=== PATIENT | female | born 1955 | race Caucasian/White ===

== ENCOUNTER → 2016-07-05 | Outpatient (CLI) | payer MEDICARE, MEDICAID ==
[~2016-07-05] MED LIST: /ESCI20TA OR; /ESOM40CA OR; ATEN25TA OR; CALC-136 PO; FLEXERIL OR; GARL3CAP3 PO; Hydrocodone/APAP OR; IRON18TA2 PO; LASI20TA PO; LEVO112T25 PO; LEVO50TA2 OR; MIRA0.753 PO; MIRA1.5T4 PO; Mirapex OR; NUPRO TOP; PERC7.5T3 PO; PROZ20CA11 PO; TYLE167L PO; TYLE650T25 PO; VITA100037 PO; VITATAB11 PO; WELL100T PO; ZINC30TA3 PO; flexeril PO
--- NOTE | 2016-07-11 23:38 | ECWPNPC ---
PATIENT NAME: JUAN BELLE : 1955 GENDER: FEMALE VISIT DATE: 07/05/2016 DISCHARGE DATE: 07/05/16 0935 VISIT LOCKED DATE TIME: PHYSICIAN: RE JACKSON RESOURCE: RE JACKSON REASON FOR APPOINTMENT 1. ARTHRITIS HISTORY OF PRESENT ILLNESS HISTORY OF PRESENT ILLNESS: PAIN THE PATIENT DESCRIBES THE PAIN... HERE FOR F/U AND MANAGEMENT OF CHRONIC GENERALIZED NECK AND LBP.REPORTS NEW ONSET OF RIGHT HIP PAIN X2WKS.DENIES PRECIPITATING EVENT.PAIN RADIATES INTO RIGHT HIP AND THIGH.RATING GENERALIZED PAIN 3/10.USING PERCOCET PRN FOR SEVERE PAIN EPISODES.STATES SHE RAN OUT OF HER MEDICINE ONE WEEK AGO.HAS 30 TABS. PER MOS. FALL RISK SCREENING: SCREENING :NO FALLS IN THE PAST YEAR CURRENT MEDICATIONS TAKING FERROUS SULFATE 325 (65 FE) MG TABLET 1 TABLET ORALLY ONCE A DAY TAKING TYLENOL 650 MG TABLET 1 TAB ORAL NEEDED, NOTES: PAIN CLINIC TAKING VITAMIN B COMPLEX TABLET ORALLY DAILY TAKING FLONASE 50 MCG/ACT SUSPENSION 1 SPRAY IN EACH NOSTRIL NASALLY ONCE DAILY NEEDED TAKING SALINE NASAL SPRAY 0.65 % SOLUTION 2 DROPS IN EACH NOSTRIL NEEDED NASALLY EVERY 2 HRS TAKING CYCLOBENZAPRINE HCL 10 MG TABLET 1 TABLET ORALLY THREE TIMES A DAY ONLY NEEDED FOR FLARE-UP OF MUSCLE SPASM TAKING NEXIUM 40 MG CAPSULE DELAYED RELEASE 1 TAB ORALLY ONCE A DAY TAKING BUPROPION HCL (XL) 300 MG TABLET EXTENDED RELEASE 24 HOUR 1 TABLET IN THE MORNING ORALLY ONCE A DAY TAKING LEVOXYL 112 MCG TABLET 1 TABLET ON AN EMPTY STOMACH IN THE MORNING ORALLY ONCE A DAY TAKING DRISDOL 37264 UNIT CAPSULE 1 CAPSULE WITH MEAL ORALLY ONCE A WEEK TAKING CALCIUM + D 600-400 MG-UNIT TABLET 1 TABLET WITH FOOD ORALLY TWICE A DAY TAKING MIRAPEX ER 1.5 MG TABLET EXTENDED RELEASE 24 HOUR 1 TABLET ORALLY ONCE A DAY TAKING PERCOCET 7.5-325 MG TABLET 1 ORALLY Q8H PRN PAIN MDD2, NOTES: PAIN CLINIC NOT-TAKING BUSPIRONE HCL 5 MG TABLET 1 TABLET ORALLY ONCE A DAY NEEDED MEDICATION LIST REVIEWED AND RECONCILED WITH THE PATIENT PAST MEDICAL HISTORY HYPOTHYROIDISM ESOPHAGEAL REFLUX DISC DISEASE ARTHRITIS 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 PAIN OTHER MALAISE AND FATIGUE OBESITY -GASTRIC BYPASS, JULY 2011 ANXIETY NEURASTHENIA SCIATICA BACK PAIN - LUMBAR - PAIN CLINIC OTHER SPECIFIED IDIOPATHIC PERIPHERAL NEUROPATHY PAIN IN JOINT, LOWER LEG PAIN IN THORACIC SPINE DEPRESSION,DYSTHYMIC DISORDER VITAMIN D DEFICIENCY ALLERGIC RHINITIS SLEEP APNEA, OBSTRUCTIVE - REFUSED CPAP, FOLLOWS WITH NEUROLOGY RESTLESS LEGS SYNDROME - NEUROLOGY ALLERGIES INH: RASH: ALLERGY PENICILLIN: SOB: ALLERGY CODEINE: NAUSEA: SIDE EFFECTS ULTRAM: HEADACHE: SIDE EFFECTS HYDROCODONE-ACETAMINOPHEN: ITCH ALL OVER: ALLERGY LIDOCAINE: RAPID HEARTBEAT: ALLERGY BETADINE: RASH: ALLERGY SOCIAL HISTORY TOBACCO USE ARE YOU A:NONSMOKER LEARNING BARRIERS / SPECIAL NEEDS ORIENTED TO PLAN OF CARE: PATIENT, PAIN MANAGEMENT PATIENT, ORIENTED TO PLAN OF CARE: PATIENT, PAIN MANAGEMENT PATIENT. NEW PATIENT PAIN DIARY TODAY'S VISITNOTES FROM 0-10, WHAT LEVEL IS YOUR PAIN TODAY?0 PAIN CLINIC PFS, CLERGY, PUBLIC HEALTH REFERRALS PFS REFERRAL NEEDED?NO CLERGY REFERRAL NEEDED?NO PUBLIC HEALTH REFERRAL NEEDED?NO WAS THE PROVIDER NOTIFIED OF ANY PERTINENT INFO?NO PFS REFERRAL NEEDED?NO CLERGY REFERRAL NEEDED?NO PUBLIC HEALTH REFERRAL NEEDED?NO WAS THE PROVIDER NOTIFIED OF ANY PERTINENT INFO?NO REVIEW OF SYSTEMS CONSTITUTIONAL: ANY CHANGE IN YOUR MEDICAL CONDITION? NO . CHILLS NO . FEVER NO . INFECTION: DO YOU HAVE NEW INFECTIONS? YES, COLD LAST WEEK . DO YOU HAVE HISTORY OF MRSA? NO . MUSCULOSKELETAL: ANY NEW PATTERNS OF PAIN OR NUMBNESS? YES,PAIN RIGHT HIP. NOT SCIATIC . GASTROENTEROLOGY: ANY NEW CHANGE IN BOWEL CONTROL? NO . GENITOURINARY: ANY NEW CHANGE IN BLADDER CONTROL? NO . IS THERE A CHANCE YOU COULD BE ? NO . HEMATOLOGY/LYMPH: DO YOU TAKE ANY BLOOD THINNERS? (FOR EXAMPLE- COUMADIN, PLAVIX, AGGRENOX, PLATEL, PRADAXA, OR XARELTO) NO . WHEN WAS YOUR LAST DOSE? DATE: TIME: . NEUROLOGY: HAVE YOU FALLEN IN THE PAST 6 MONTHS? NO . ANY NEW EXTREMITY NUMBNESS OR WEAKNESS? NO . CARDIOLOGY: DO YOU HAVE A PACEMAKER OR DEFIBRILLATOR? NO . RESPIRATORY: HAVE YOU BEEN SICK IN THE PAST WEEK? YES, COLD LAST WEEK WITH CHILLS AT START. RAISED GREENISH MUCUS X 5 DAYS. FEELS BETTER NOW. . FEVER NO . FLU LIKE SYMPTOMS? NO . COUGH NO . INTEGUMENTARY: DO YOU HAVE ANY RASHES OR OPEN SORES? NO . ALLERGIC/IMMUNO: ARE YOU ALLERGIC TO SHELLFISH OR IV DYE? NO . ANY NEW ALLERGIES? NO . PSYCHIATRIC: DO YOU HAVE THOUGHTS OF HURTING YOURSELF OR SOMEONE ELSE? NO . ARE YOU ABUSED, NEGLECTED, OR IN AN UNSAFE ENVIRONMENT? NO . ENDOCRINOLOGY: ARE YOU DIABETIC? NO . OTHER: DO YOU NEED ANY PRESCRIPTIONS? YES, PERCOCET AND FLEXERIL . IF YES, PLEASE LIST: ____ . ANY NEW PROBLEMS WITH YOUR MEDICATIONS? NO . WHEN DID YOU LAST EAT? ____ . WHEN DID YOU LAST DRINK? ____ . WHAT DID YOU LAST DRINK? ____ . NAME OF PERSON DRIVING YOU HOME? ____ . DO YOU HAVE ANY OTHER QUESTIONS OR CONCERNS NO . REVIEWED BY: PROVIDER: RE SKAGGS . VITAL SIGNS WT 195 LBS, HT 63 IN, BMI 34.54 INDEX, BP 121/82 MM HG, HR 77 /MIN, RR 16 /MIN, TEMP 97.5 F, OXYGEN SAT % 97, REVIEWED BY: MLF. EXAMINATION GENERAL EXAMINATION: LUNGS:LUNG SOUNDS ARE CLEAR. HEART:HEART RATE REGULAR. MUSCULOSKELETAL:*, MUSCLE STRENGTH TESTING 5/5 BILATERAL.PALPATION: NEGATIVE FOR PAIN OVER L/S SPINE. NEGATIVE FOR PAIN OVER L/S PARASPINALS, PARICK TESTING POSITIVE OVER RIGHT SIJ.. DIAGNOSTIC:DIAGNOSTIC DATA:MRI L/S SPINE-MULTI LEVEL BULGING DISC AND FACET ARTHROPATHY.MILD SPINAL STENOSIS AT L2/3.. ASSESSMENTS LOW BACK PAIN OF OVER 3 MONTHS DURATION - M54.5 (PRIMARY) OTHER CHRONIC PAIN - G89.29 CHRONIC MYOFASCIAL PAIN - M79.1 CHRONIC PRESCRIPTION OPIATE USE - Z79.899 TREATMENT LOW BACK PAIN OF OVER 3 MONTHS DURATION REFILL PERCOCET TABLET, 7.5-325 MG, 1-2, ORALLY, Q4-6H PRN PAIN MDD4, 1 MONTH, 30, REFILLS 0, NOTES: PAIN CLINIC [facility] MRI SPINE, L.S. WITHOUT [id number] PROCEDURE CODES FA211 ESTABILISHED PATIENT [facility] FACILITY CHARGE G8730 PAIN ASSESS POS TOOL F/U PLAN DOC G8427 DOC MEDS VERIFIED W/PT OR RE FOLLOW UP 4 WEEKS ELECTRONICALLY SIGNED BY GILES DO ON 07/11/2016 AT 10:22 AM EST DISCLAIMER : THIS IS A VISIT SUMMARY EXTRACTED FROM THE [employer] CHART. IT IS NOT A COPY OF THE [employer] PROGRESS NOTE. MTDD
== END ==
LOC: M PAIN 08:40
PROVIDERS: ATTEND Nurse Practitioner Family
DX: M54.5 Low back pain (principal); G89.29 Other chronic pain; M79.1 Myalgia; M19.90 Unspecified osteoarthritis, unspecified site; Z79.891 Long term (current) use of opiate analgesic; Z79.899 Other long term (current) drug therapy; Z88.0 Allergy status to penicillin; Z88.5 Allergy status to narcotic agent; Z88.3 Allergy status to other anti-infective agents; Z88.8 Allergy status to other drugs, medicaments and biological substances

== ENCOUNTER → 2016-07-15 | Outpatient (CLI) | payer MEDICARE, MEDICAID ==
--- NOTE | 2016-07-15 09:03 | REP ---
MRI LUMBAR SPINE WITHOUT CONTRAST: HISTORY: Back pain. COMPARISON: 07/25/2014. Decreased signal intensity on T2-weighted images is present in the lumbar intervertebral discs. The discs are decreased in height. These findings are consistent with disc degeneration. A diffuse disc bulge is present at the L1-2 level. There is minimal compression of the thecal sac. There is hypertrophy of the posterior articulating facets. The L1 nerves exit the neural foramina without compression. A diffuse disc bulge is present at the L2-3 level. There is hypertrophy of the ligamenta flava and posterior articulating facets. These findings produce minimal central canal stenosis. A small right intraforaminal and lateral disc protrusion is present. There is posterolateral displacement of the right L2 nerve in the distal neural foramen. The left L2 nerve exits the neural foramen without compression. A diffuse disc bulge is present at the L3-4 level. There is minimal compression of the thecal sac. There is hypertrophy of the ligamenta flava and posterior articulating facets. There is posterolateral displacement of the left L3 nerve distal to the neural foramen. The right L3 nerve exits the neural foramen without compression. A diffuse disc bulge is present at the L4-5 level. There is minimal compression of the thecal sac. There is hypertrophy of the posterior articulating facets. The L4 nerves exit the neural foramina without compression. A diffuse disc bulge is present at the L5-S1 level. There is minimal compression of the thecal sac. There is hypertrophy of the posterior articulating facets. There is compression of the right L5 nerve in the neural foramen. The left L5 nerve exits the neural foramen without compression. The conus medullaris is normal in appearance terminating at the level of the L1-2 intervertebral disc. Increased signal intensity on T2-weighted images is present in the end plates of the L1-S2 vertebral bodies. This represents degenerative change. IMPRESSION: 1. Diffuse disc bulges at the L1-2 and L3-4 through L5-S1 levels with minimal thecal sac compression. There is compression of the right L5 nerve in the neural foramen. The right L5 nerve compression is a new finding. 2. Minimal central canal stenosis at the L2-3 level secondary to disc bulge, ligamentous and facet hypertrophy. There is no other significant change. Signed by Mauro Brown MD 07/15/2016 09:11 A
== END ==
LOC: M RAD 06:46
PROVIDERS: ATTEND Nurse Practitioner Family
DX: M51.26 Other intervertebral disc displacement, lumbar region (principal)

== ENCOUNTER → 2016-08-12 | Outpatient (REF) | payer MEDICARE, MEDICAID | LOC: M SFHCPLAZ 11:52 | PROVIDERS: ATTEND Nurse Practitioner Family | DX: M25.50 Pain in unspecified joint (principal); E03.9 Hypothyroidism, unspecified; E55.9 Vitamin D deficiency, unspecified; Z53.8 Procedure and treatment not carried out for other reasons ==

== ENCOUNTER → 2016-08-12 | Outpatient (CLI) | payer MEDICARE, MEDICAID ==
--- NOTE | 2016-08-17 00:25 | ECWPNPC ---
PATIENT NAME: JUAN BELLE : 1955 GENDER: FEMALE VISIT DATE: 08/12/2016 DISCHARGE DATE: 08/12/16 1556 VISIT LOCKED DATE TIME: PHYSICIAN: RE JACKSON RESOURCE: RE JACKSON REASON FOR APPOINTMENT 1. ARTHRITIS HISTORY OF PRESENT ILLNESS HISTORY OF PRESENT ILLNESS: PAIN THE PATIENT DESCRIBES THE PAIN... THE PATIENT DESCRIBES THE PAIN... HERE FOR F/U AND MANAGEMENT OF CHRONIC GENERALIZED NECK AND LBP.MRI L/S SPINE DONE 07-15-16 REVIEWED.RATING GENERALIZED PAIN /10.USING PERCOCET PRN FOR SEVERE PAIN EPISODES.MRI SHOWING NEW FINDING OF RIGHT L5 NERVE COMPRESSION.SHE HAS A 6 WEEK HX OF RIGHT LOW BACK AND RIGHT LEG RADICULAR SYMPTOMS.DISCUSSED TREATMENT OPTIONS.SHE WANTS TO HOLD OFF WITH ANY INJECTIONS.DISCUSSED PT.OVERALL SHE REPORTS THAT SHE IS DOING QUITE WELL. FALL RISK SCREENING: SCREENING :NO FALLS IN THE PAST YEAR CURRENT MEDICATIONS TAKING FERROUS SULFATE 325 (65 FE) MG TABLET 1 TABLET ORALLY ONCE A DAY TAKING TYLENOL 650 MG TABLET 1 TAB ORAL NEEDED, NOTES: PAIN CLINIC TAKING VITAMIN B COMPLEX TABLET ORALLY DAILY TAKING FLONASE 50 MCG/ACT SUSPENSION 1 SPRAY IN EACH NOSTRIL NASALLY ONCE DAILY NEEDED TAKING SALINE NASAL SPRAY 0.65 % SOLUTION 2 DROPS IN EACH NOSTRIL NEEDED NASALLY EVERY 2 HRS TAKING CYCLOBENZAPRINE HCL 10 MG TABLET 1 TABLET ORALLY THREE TIMES A DAY ONLY NEEDED FOR FLARE-UP OF MUSCLE SPASM TAKING NEXIUM 40 MG CAPSULE DELAYED RELEASE 1 TAB ORALLY ONCE A DAY TAKING DRISDOL 07733 UNIT CAPSULE 1 CAPSULE WITH MEAL ORALLY ONCE A WEEK TAKING CALCIUM + D 600-400 MG-UNIT TABLET 1 TABLET WITH FOOD ORALLY TWICE A DAY TAKING MIRAPEX ER 1.5 MG TABLET EXTENDED RELEASE 24 HOUR 1 TABLET ORALLY ONCE A DAY TAKING PERCOCET 7.5-325 MG TABLET 1-2 ORALLY Q4-6H PRN PAIN MDD4, NOTES: PAIN CLINIC TAKING LEVOXYL 112 MCG TABLET 1 TABLET ON AN EMPTY STOMACH IN THE MORNING ORALLY ONCE A DAY TAKING BUPROPION HCL (XL) 300 MG TABLET EXTENDED RELEASE 24 HOUR 1 TABLET IN THE MORNING ORALLY ONCE A DAY NOT-TAKING BUSPIRONE HCL 5 MG TABLET 1 TABLET ORALLY ONCE A DAY NEEDED MEDICATION LIST REVIEWED AND RECONCILED WITH THE PATIENT PAST MEDICAL HISTORY HYPOTHYROIDISM ESOPHAGEAL REFLUX DISC DISEASE ARTHRITIS 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 PAIN OTHER MALAISE AND FATIGUE OBESITY -GASTRIC BYPASS, JULY 2011 ANXIETY NEURASTHENIA SCIATICA BACK PAIN - LUMBAR - PAIN CLINIC OTHER SPECIFIED IDIOPATHIC PERIPHERAL NEUROPATHY PAIN IN JOINT, LOWER LEG PAIN IN THORACIC SPINE DEPRESSION,DYSTHYMIC DISORDER VITAMIN D DEFICIENCY ALLERGIC RHINITIS SLEEP APNEA, OBSTRUCTIVE - REFUSED CPAP, FOLLOWS WITH NEUROLOGY RESTLESS LEGS SYNDROME - NEUROLOGY ALLERGIES INH: RASH: ALLERGY PENICILLIN: SOB: ALLERGY CODEINE: NAUSEA: SIDE EFFECTS ULTRAM: HEADACHE: SIDE EFFECTS HYDROCODONE-ACETAMINOPHEN: ITCH ALL OVER: ALLERGY LIDOCAINE: RAPID HEARTBEAT: ALLERGY BETADINE: RASH: ALLERGY SOCIAL HISTORY GENERAL: TOBACCO USE ARE YOU A:NONSMOKER LEARNING BARRIERS / SPECIAL NEEDS ORIENTED TO PLAN OF CARE: PATIENT, PAIN MANAGEMENT PATIENT, ORIENTED TO PLAN OF CARE: PATIENT, PAIN MANAGEMENT PATIENT. NEW PATIENT PAIN DIARY TODAY'S VISITNOTES FROM 0-10, WHAT LEVEL IS YOUR PAIN TODAY?0 PAIN CLINIC PFS, CLERGY, PUBLIC HEALTH REFERRALS PFS REFERRAL NEEDED?NO CLERGY REFERRAL NEEDED?NO PUBLIC HEALTH REFERRAL NEEDED?NO WAS THE PROVIDER NOTIFIED OF ANY PERTINENT INFO?NO PFS REFERRAL NEEDED?NO CLERGY REFERRAL NEEDED?NO PUBLIC HEALTH REFERRAL NEEDED?NO WAS THE PROVIDER NOTIFIED OF ANY PERTINENT INFO?NO REVIEW OF SYSTEMS CONSTITUTIONAL: ANY CHANGE IN YOUR MEDICAL CONDITION? NO . CHILLS NO . FEVER NO . INFECTION: DO YOU HAVE NEW INFECTIONS? NO . DO YOU HAVE HISTORY OF MRSA? NO . MUSCULOSKELETAL: ANY NEW PATTERNS OF PAIN OR NUMBNESS? NO . GASTROENTEROLOGY: ANY NEW CHANGE IN BOWEL CONTROL? NO . GENITOURINARY: ANY NEW CHANGE IN BLADDER CONTROL? NO . IS THERE A CHANCE YOU COULD BE ? NO . HEMATOLOGY/LYMPH: DO YOU TAKE ANY BLOOD THINNERS? (FOR EXAMPLE- COUMADIN, PLAVIX, AGGRENOX, PLATEL, PRADAXA, OR XARELTO) NO . WHEN WAS YOUR LAST DOSE? DATE: TIME: . NEUROLOGY: HAVE YOU FALLEN IN THE PAST 6 MONTHS? NO . ANY NEW EXTREMITY NUMBNESS OR WEAKNESS? NO . CARDIOLOGY: DO YOU HAVE A PACEMAKER OR DEFIBRILLATOR? NO . RESPIRATORY: HAVE YOU BEEN SICK IN THE PAST WEEK? YES PT REPORTS HAVING A COLD THIS PAST WEEK, WITH CONGESTION, LOW GRADE FEVER, COUGHING. NOW IS RESOLVED. . FEVER NO . FLU LIKE SYMPTOMS? NO . COUGH NO . INTEGUMENTARY: DO YOU HAVE ANY RASHES OR OPEN SORES? NO . ALLERGIC/IMMUNO: ARE YOU ALLERGIC TO SHELLFISH OR IV DYE? NO . ANY NEW ALLERGIES? NO . PSYCHIATRIC: DO YOU HAVE THOUGHTS OF HURTING YOURSELF OR SOMEONE ELSE? NO . ARE YOU ABUSED, NEGLECTED, OR IN AN UNSAFE ENVIRONMENT? NO . ENDOCRINOLOGY: ARE YOU DIABETIC? NO . OTHER: DO YOU NEED ANY PRESCRIPTIONS? NO . IF YES, PLEASE LIST: ____ . ANY NEW PROBLEMS WITH YOUR MEDICATIONS? NO . WHEN DID YOU LAST EAT? ____ . WHEN DID YOU LAST DRINK? ____ . WHAT DID YOU LAST DRINK? ____ . NAME OF PERSON DRIVING YOU HOME? ____ . DO YOU HAVE ANY OTHER QUESTIONS OR CONCERNS NO . REVIEWED BY: PROVIDER: RE SKAGGS . VITAL SIGNS WT 198.0 LBS, HT 63 IN, BMI 35.07 INDEX, BP 134/77 MM HG, HR 96 /MIN, RR 16 /MIN, TEMP 98.2 F, OXYGEN SAT % 96, SAFE IN ENV? (Y/N) YES, NA INITIALS TL 1512, REVIEWED BY: STEPHY. EXAMINATION GENERAL EXAMINATION: LUNGS:LUNG SOUNDS ARE CLEAR. HEART:HEART RATE REGULAR. MUSCULOSKELETAL:*, MUSCLE STRENGTH TESTING 5/5 BILATERAL.PALPATION: NEGATIVE FOR PAIN OVER L/S SPINE. NEGATIVE FOR PAIN OVER L/S PARASPINALS, PARICK TESTING POSITIVE OVER RIGHT SIJ.. DIAGNOSTIC:DIAGNOSTIC DATA:MRI L/S SPINE-MULTI LEVEL BULGING DISC AND FACET ARTHROPATHY.MILD SPINAL STENOSIS AT L2/3.. ASSESSMENTS LOW BACK PAIN OF OVER 3 MONTHS DURATION - M54.5 (PRIMARY) OTHER CHRONIC PAIN - G89.29 CHRONIC MYOFASCIAL PAIN - M79.1 CHRONIC PRESCRIPTION OPIATE USE - Z79.899 TREATMENT LOW BACK PAIN OF OVER 3 MONTHS DURATION REFERRAL TO:PHYSICAL THERAPIST REASON:RIGHT L5 RADICULOPATHY/LOW BACK PAIN PROCEDURE CODES FA211 ESTABILISHED PATIENT [facility] FACILITY CHARGE G8730 PAIN ASSESS POS TOOL F/U PLAN DOC G8427 DOC MEDS VERIFIED W/PT OR RE FOLLOW UP 6 WEEKS ELECTRONICALLY SIGNED BY GILES DO ON 08/16/2016 AT 08:53 AM EST DISCLAIMER : THIS IS A VISIT SUMMARY EXTRACTED FROM THE [employer] CHART. IT IS NOT A COPY OF THE [employer] PROGRESS NOTE. MTDD
== END ==
LOC: M PAIN 15:00
PROVIDERS: ATTEND Nurse Practitioner Family
DX: Z09 Encounter for follow-up examination after completed treatment for conditions other than malignant neoplasm (principal); G89.29 Other chronic pain; M54.5 Low back pain; M79.1 Myalgia; G47.33 Obstructive sleep apnea (adult) (pediatric); G25.81 Restless legs syndrome; J30.9 Allergic rhinitis, unspecified; E78.2 Mixed hyperlipidemia; E03.9 Hypothyroidism, unspecified; K21.9 Gastro-esophageal reflux disease without esophagitis; F32.9 Major depressive disorder, single episode, unspecified; F41.9 Anxiety disorder, unspecified; E55.9 Vitamin D deficiency, unspecified; Z88.0 Allergy status to penicillin; Z88.5 Allergy status to narcotic agent; Z88.8 Allergy status to other drugs, medicaments and biological substances; Z88.4 Allergy status to anesthetic agent; Z88.3 Allergy status to other anti-infective agents; Z79.1 Long term (current) use of non-steroidal anti-inflammatories (NSAID); Z79.82 Long term (current) use of aspirin; Z79.891 Long term (current) use of opiate analgesic; Z79.899 Other long term (current) drug therapy; Z98.84 Bariatric surgery status
CPT/HCPCS: G0463 ×2

== ENCOUNTER → 2016-08-19 | Outpatient (REF) | payer MEDICARE, MEDICAID ==
[2016-08-19 13:57] LABS: FREE T4 1.23 NG/DL (0.76-1.46)
== END ==
LOC: M SFHCPLAZ 11:14
PROVIDERS: ATTEND Nurse Practitioner Family
DX: E03.9 Hypothyroidism, unspecified (principal); E55.9 Vitamin D deficiency, unspecified; M25.50 Pain in unspecified joint

== ENCOUNTER → 2016-09-13 | Outpatient (CLI) | payer MEDICARE, MEDICAID ==
--- NOTE | 2016-09-13 23:49 | ECWPNPC ---
PATIENT NAME: JUAN BELLE : 1955 GENDER: FEMALE VISIT DATE: 09/13/2016 DISCHARGE DATE: 09/13/16 1131 VISIT LOCKED DATE TIME: PHYSICIAN: RE JACKSON RESOURCE: RE JACKSON REASON FOR APPOINTMENT 1. GENERALIZED ARTHRITIS HISTORY OF PRESENT ILLNESS HISTORY OF PRESENT ILLNESS: HERE FOR F/U OF CHRONIC LBP AND RIGHT LEG PAIN.STATES SHE WANTS TO TALK TO ME REGARDING PAIN PILL SITUATION.STATES SHE HAS 2 CHILDREN SHE FEELS ARE ADDICTED TO PAIN PILLS AND KNOW SHE HAS PERCOCET AND THEY HOUND HER FOR MEDICATION.SHE WANTS TO NOT HAVE THIS PRESCRIBED ANYMORE.SHE WAS RECIEVING #30 TABLETS EVERY 2-3 MOS.SHE WANTS TO COME HERE MAYBE ONCE Q6MOS TO KEEP FILE OPEN.STATES SHE WILL GO TO ER IF SHE HAS TO FOR SEVERE PAIN.RATING PAIN VAS 4/10. FALL RISK SCREENING: SCREENING :NO FALLS IN THE PAST YEAR CURRENT MEDICATIONS TAKING ERYTHROMYCIN 2 % GEL APPLY TO NECK AND HAIRLINE TWO TIMES A DAY UNTIL CLEAR THEN NEEDED WITH FLARE EXTERNAL TAKING FERROUS SULFATE 325 (65 FE) MG TABLET 1 TABLET ORALLY ONCE A DAY TAKING TYLENOL 650 MG TABLET 1 TAB ORAL NEEDED, NOTES: PAIN CLINIC TAKING VITAMIN B COMPLEX TABLET ORALLY DAILY TAKING FLONASE 50 MCG/ACT SUSPENSION 1 SPRAY IN EACH NOSTRIL NASALLY ONCE DAILY NEEDED TAKING SALINE NASAL SPRAY 0.65 % SOLUTION 2 DROPS IN EACH NOSTRIL NEEDED NASALLY EVERY 2 HRS TAKING CYCLOBENZAPRINE HCL 10 MG TABLET 1 TABLET ORALLY THREE TIMES A DAY ONLY NEEDED FOR FLARE-UP OF MUSCLE SPASM TAKING NEXIUM 40 MG CAPSULE DELAYED RELEASE 1 TAB ORALLY ONCE A DAY TAKING DRISDOL 15101 UNIT CAPSULE 1 CAPSULE WITH MEAL ORALLY ONCE A WEEK TAKING CALCIUM + D 600-400 MG-UNIT TABLET 1 TABLET WITH FOOD ORALLY TWICE A DAY TAKING MIRAPEX ER 1.5 MG TABLET EXTENDED RELEASE 24 HOUR 1 TABLET ORALLY ONCE A DAY TAKING PERCOCET 7.5-325 MG TABLET 1-2 ORALLY Q4-6H PRN PAIN MDD4, NOTES: PAIN CLINIC TAKING BUPROPION HCL (XL) 300 MG TABLET EXTENDED RELEASE 24 HOUR 1 TABLET IN THE MORNING ORALLY ONCE A DAY TAKING BUPROPION HCL (XL) 150 MG TABLET EXTENDED RELEASE 24 HOUR 1 TABLET IN THE MORNING ORALLY ONCE A DAY WITH THE 300MG DOSE TAKING BUSPIRONE HCL 7.5 MG TABLET 1 TABLET ORALLY THREE TIMES A DAY NEEDED TAKING LEVOXYL 112 MCG TABLET 1 TABLET ON AN EMPTY STOMACH IN THE MORNING ORALLY ONCE A DAY MEDICATION LIST REVIEWED AND RECONCILED WITH THE PATIENT PAST MEDICAL HISTORY HYPOTHYROIDISM ESOPHAGEAL REFLUX DISC DISEASE ARTHRITIS 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 PAIN OTHER MALAISE AND FATIGUE OBESITY -GASTRIC BYPASS, JULY 2011 ANXIETY NEURASTHENIA SCIATICA BACK PAIN - LUMBAR - PAIN CLINIC OTHER SPECIFIED IDIOPATHIC PERIPHERAL NEUROPATHY PAIN IN JOINT, LOWER LEG PAIN IN THORACIC SPINE DEPRESSION,DYSTHYMIC DISORDER VITAMIN D DEFICIENCY ALLERGIC RHINITIS SLEEP APNEA, OBSTRUCTIVE - REFUSED CPAP, FOLLOWS WITH NEUROLOGY RESTLESS LEGS SYNDROME - NEUROLOGY ALLERGIES INH: RASH: ALLERGY PENICILLIN: SOB: ALLERGY CODEINE: NAUSEA: SIDE EFFECTS ULTRAM: HEADACHE: SIDE EFFECTS HYDROCODONE-ACETAMINOPHEN: ITCH ALL OVER: ALLERGY LIDOCAINE: RAPID HEARTBEAT: ALLERGY BETADINE: RASH: ALLERGY SOCIAL HISTORY GENERAL: TOBACCO USE ARE YOU A:NONSMOKER LEARNING BARRIERS / SPECIAL NEEDS ORIENTED TO PLAN OF CARE: PATIENT, PAIN MANAGEMENT PATIENT, ORIENTED TO PLAN OF CARE: PATIENT, PAIN MANAGEMENT PATIENT. NEW PATIENT PAIN DIARY TODAY'S VISITNOTES FROM 0-10, WHAT LEVEL IS YOUR PAIN TODAY?0 PAIN CLINIC PFS, CLERGY, PUBLIC HEALTH REFERRALS PFS REFERRAL NEEDED?NO CLERGY REFERRAL NEEDED?NO PUBLIC HEALTH REFERRAL NEEDED?NO WAS THE PROVIDER NOTIFIED OF ANY PERTINENT INFO?NO PFS REFERRAL NEEDED?NO CLERGY REFERRAL NEEDED?NO PUBLIC HEALTH REFERRAL NEEDED?NO WAS THE PROVIDER NOTIFIED OF ANY PERTINENT INFO?NO REVIEW OF SYSTEMS CONSTITUTIONAL: ANY CHANGE IN YOUR MEDICAL CONDITION? NO . CHILLS NO . FEVER NO . INFECTION: DO YOU HAVE NEW INFECTIONS? NO . DO YOU HAVE HISTORY OF MRSA? NO . MUSCULOSKELETAL: ANY NEW PATTERNS OF PAIN OR NUMBNESS? YES, RIGHT THUMB AND RIGHT SHOULDER . GASTROENTEROLOGY: ANY NEW CHANGE IN BOWEL CONTROL? NO . GENITOURINARY: ANY NEW CHANGE IN BLADDER CONTROL? NO . IS THERE A CHANCE YOU COULD BE ? NO . HEMATOLOGY/LYMPH: DO YOU TAKE ANY BLOOD THINNERS? (FOR EXAMPLE- COUMADIN, PLAVIX, AGGRENOX, PLATEL, PRADAXA, OR XARELTO) NO . WHEN WAS YOUR LAST DOSE? DATE: TIME: . NEUROLOGY: HAVE YOU FALLEN IN THE PAST 6 MONTHS? NO . ANY NEW EXTREMITY NUMBNESS OR WEAKNESS? NO . CARDIOLOGY: DO YOU HAVE A PACEMAKER OR DEFIBRILLATOR? NO . RESPIRATORY: HAVE YOU BEEN SICK IN THE PAST WEEK? NO . FEVER NO . FLU LIKE SYMPTOMS? NO . COUGH NO . INTEGUMENTARY: DO YOU HAVE ANY RASHES OR OPEN SORES? NO . ALLERGIC/IMMUNO: ARE YOU ALLERGIC TO SHELLFISH OR IV DYE? NO . ANY NEW ALLERGIES? NO . PSYCHIATRIC: DO YOU HAVE THOUGHTS OF HURTING YOURSELF OR SOMEONE ELSE? NO . ARE YOU ABUSED, NEGLECTED, OR IN AN UNSAFE ENVIRONMENT? NO . ENDOCRINOLOGY: ARE YOU DIABETIC? NO . OTHER: DO YOU NEED ANY PRESCRIPTIONS? NO . IF YES, PLEASE LIST: ____ . ANY NEW PROBLEMS WITH YOUR MEDICATIONS? NO . WHEN DID YOU LAST EAT? ____ . WHEN DID YOU LAST DRINK? ____ . WHAT DID YOU LAST DRINK? ____ . NAME OF PERSON DRIVING YOU HOME? ____ . DO YOU HAVE ANY OTHER QUESTIONS OR CONCERNS YES . REVIEWED BY: PROVIDER: RE SKAGGS . VITAL SIGNS WT 200.0 LBS, HT 63 IN, BMI 35.42 INDEX, BP 123/75 MM HG, HR 78 /MIN, RR 18 /MIN, TEMP 97.2 F, OXYGEN SAT % 99, NA INITIALS AW, REVIEWED BY: CS. EXAMINATION GENERAL EXAMINATION: LUNGS:LUNG SOUNDS ARE CLEAR. HEART:HEART RATE REGULAR. MUSCULOSKELETAL:*, MUSCLE STRENGTH TESTING 5/5 BILATERAL.PALPATION: NEGATIVE FOR PAIN OVER L/S SPINE. NEGATIVE FOR PAIN OVER L/S PARASPINALS, PARICK TESTING POSITIVE OVER RIGHT SIJ.. DIAGNOSTIC:DIAGNOSTIC DATA:MRI L/S SPINE-MULTI LEVEL BULGING DISC AND FACET ARTHROPATHY.MILD SPINAL STENOSIS AT L2/3.. ASSESSMENTS LOW BACK PAIN OF OVER 3 MONTHS DURATION - M54.5 (PRIMARY) OTHER CHRONIC PAIN - G89.29 CHRONIC MYOFASCIAL PAIN - M79.1 CHRONIC PRESCRIPTION OPIATE USE - Z79.899 TREATMENT LOW BACK PAIN OF OVER 3 MONTHS DURATION STOP PERCOCET TABLET, 7.5-325 MG, 1-2, ORALLY, Q4-6H PRN PAIN MDD4, NOTES: PAIN CLINIC PROCEDURE CODES FA211 ESTABILISHED PATIENT [facility] FACILITY CHARGE G8730 PAIN ASSESS POS TOOL F/U PLAN DOC G8427 DOC MEDS VERIFIED W/PT OR RE DISPOSITION & COMMUNICATION FOLLOW UP 6 MONTHS ELECTRONICALLY SIGNED BY GILES DO ON 09/13/2016 AT 02:16 PM EDT DISCLAIMER : THIS IS A VISIT SUMMARY EXTRACTED FROM THE [employer] CHART. IT IS NOT A COPY OF THE [employer] PROGRESS NOTE. KARLEY
== END ==
LOC: M PAIN 10:40
PROVIDERS: ATTEND Nurse Practitioner Family
DX: Z09 Encounter for follow-up examination after completed treatment for conditions other than malignant neoplasm (principal); G89.29 Other chronic pain; M54.5 Low back pain; M79.1 Myalgia; E03.9 Hypothyroidism, unspecified; K21.9 Gastro-esophageal reflux disease without esophagitis; M19.90 Unspecified osteoarthritis, unspecified site; E55.9 Vitamin D deficiency, unspecified; J30.89 Other allergic rhinitis; F41.9 Anxiety disorder, unspecified; F34.1 Dysthymic disorder; F32.9 Major depressive disorder, single episode, unspecified; G47.30 Sleep apnea, unspecified; G25.81 Restless legs syndrome; Z88.0 Allergy status to penicillin; Z88.5 Allergy status to narcotic agent; Z88.4 Allergy status to anesthetic agent; Z88.3 Allergy status to other anti-infective agents; Z88.8 Allergy status to other drugs, medicaments and biological substances; Z79.899 Other long term (current) drug therapy; Z87.891 Personal history of nicotine dependence; Z68.35 Body mass index [BMI] 35.0-35.9, adult; E66.9 Obesity, unspecified; Z98.84 Bariatric surgery status
CPT/HCPCS: G0463 ×2

== ENCOUNTER → 2016-09-23 | Outpatient (REF) | payer MEDICARE, MEDICAID ==
[2016-09-23 16:23] LABS: ALBUMIN 3.7 GM/DL (3.2-5.2); ALBUMIN/GLOBULIN RATIO 1.09 (1.00-1.93); BILIRUBIN,TOTAL 0.2 MG/DL (0.2-1.0); CALCIUM LEVEL 8.6 MG/DL (8.5-10.1); CREATININE FOR GFR 1.1 MG/DL (0.55-1.02); FREE T4 1.15 NG/DL (0.76-1.46); GLOMERULAR FILTRATION RATE 54.1 (>51); POTASSIUM SERUM 4.1 MEQ/L (3.5-5.1); TOTAL PROTEIN 7.1 GM/DL (6.4-8.2)
== END ==
LOC: M SFHCPLAZ 14:11
PROVIDERS: ATTEND Nurse Practitioner Family
DX: E78.2 Mixed hyperlipidemia (principal); E03.9 Hypothyroidism, unspecified; E55.9 Vitamin D deficiency, unspecified

== ENCOUNTER → 2017-02-28 | Outpatient (REF) | payer MEDICARE, MEDICAID ==
[~2017-02-28] MED LIST changes: +PERC7.5T11 PO; -PERC7.5T3 PO; -VITA100037 PO; +VITA100067 PO
[2017-02-28 13:31] LABS: BASO % 0.7 % (0.0-1.0); EOS # 0.2 K/mm3 (0.0-0.50); EOS % 2.4 % (0.0-3.0); LARGE UNSTAINED CELL # 0.2 K/mm3 (0.0-0.4); LARGE UNSTAINED CELL % 2.1 % (0.0-4.0); LYMPH # 2.5 K/mm3 (1.5-4.5); LYMPH % 28.9 % (24.0-44.0); MEAN CORPUSCULAR HEMOGLOBIN 30.7 pg (27.0-33.0); MEAN CORPUSCULAR HGB CONC 34.1 g/dl (32.0-36.5); MONO # 0.4 K/mm3 (0.0-0.8); MONO % 4.9 % (0.0-5.0); PLATELET COUNT, AUTOMATED 349 k/mm3 (150-450); WHITE BLOOD COUNT 8.2 K/mm3 (4.0-10.0)
[2017-02-28 13:50] LABS: VITAMIN B12 LEVEL 549 PG/ML
[2017-02-28 13:51] LABS: FOLATE > 24.0 NG/ML
[2017-02-28 13:56] LABS: ALBUMIN 3.5 GM/DL (3.2-5.2); ALBUMIN/GLOBULIN RATIO 0.97 (1.00-1.93); ALKALINE PHOSPHATASE 92 U/L (45-117); ALT/SGPT 33 U/L (12-78); ANION GAP 9 MEQ/L (8-16); AST/SGOT 21 U/L (15-37); BILIRUBIN,TOTAL 0.2 MG/DL (0.2-1.0); BLOOD UREA NITROGEN 16 MG/DL (7-18); CALCIUM LEVEL 8.8 MG/DL (8.5-10.1); CARBON DIOXIDE LEVEL 26 MEQ/L (21-32); CHLORIDE LEVEL 108 MEQ/L (98-107); CREATININE FOR GFR 0.97 MG/DL (0.55-1.02); FERRITIN 35 NG/ML (8-252); FREE T4 1.11 NG/DL (0.76-1.46); GLOMERULAR FILTRATION RATE > 60.0 (>51); GLUCOSE, FASTING 89 MG/DL (70-105); MAGNESIUM LEVEL 2.1 MG/DL (1.8-2.4); SODIUM LEVEL 143 MEQ/L (136-145); TOTAL PROTEIN 7.1 GM/DL (6.4-8.2)
== END ==
LOC: M SFHCPLAZ 10:57
PROVIDERS: ATTEND Nurse Practitioner Family
DX: D64.9 Anemia, unspecified (principal); K21.9 Gastro-esophageal reflux disease without esophagitis; E03.9 Hypothyroidism, unspecified; E55.9 Vitamin D deficiency, unspecified

== ENCOUNTER → 2017-04-04 | Outpatient (CLI) | payer MEDICARE, MEDICAID ==
--- NOTE | 2017-04-25 01:17 | ECWPNPC ---
PATIENT NAME: JUAN BELLE : 1955 GENDER: FEMALE VISIT DATE: 04/04/2017 DISCHARGE DATE: 04/04/17 1445 VISIT LOCKED DATE TIME: PHYSICIAN: RE JACKSON RESOURCE: RE JACKSON REASON FOR APPOINTMENT 1. BACK HISTORY OF PRESENT ILLNESS HISTORY OF PRESENT ILLNESS: HERE FOR F/U OF CHRONIC LBP AND RIGHT LEG PAIN.STATES SHE WANTS TO TALK TO ME REGARDING PAIN PILL SITUATION.HAS BEEN STABLE FOR THE PAST 6 MONTHS.USING TYLENOL PRN FOR ARTHRITIC FLARE UPS.STATES SHE WILL GO TO ER IF SHE HAS TO FOR SEVERE PAIN.RATING PAIN VAS 4/10. PAIN THE PATIENT DESCRIBES THE PAIN... THE PATIENT DESCRIBES THE PAIN... FALL RISK SCREENING: SCREENING :NO FALLS IN THE PAST YEAR CURRENT MEDICATIONS TAKING MECLIZINE HCL 12.5 MG TABLET 1-2 TABLETS ORALLY THREE TIMES DAILY NEEDED TAKING FLONASE 50 MCG/ACT SUSPENSION 1 SPRAY IN EACH NOSTRIL NASALLY ONCE DAILY NEEDED TAKING AZELASTINE HCL 0.1 % SOLUTION 1 PUFF IN EACH NOSTRIL NASALLY TWICE A DAY TAKING ERYTHROMYCIN 2 % GEL APPLY TO NECK AND HAIRLINE TWO TIMES A DAY UNTIL CLEAR THEN NEEDED WITH FLARE EXTERNAL TAKING TYLENOL 650 MG TABLET 1 TAB ORAL NEEDED, NOTES: PAIN CLINIC TAKING MIRAPEX ER 1.5 MG TABLET EXTENDED RELEASE 24 HOUR 1 TABLET AND .75MG ORALLY ONCE A DAY TAKING LEVOXYL 112 MCG TABLET 1 TABLET ON AN EMPTY STOMACH IN THE MORNING ORALLY ONCE A DAY TAKING NEXIUM 40 MG CAPSULE DELAYED RELEASE 1 TAB ORALLY ONCE A DAY TAKING VITAMIN B COMPLEX TABLET 1 TAB ORALLY DAILY TAKING DRISDOL 09562 UNIT CAPSULE 1 CAPSULE WITH MEAL ORALLY ONCE A WEEK TAKING CALCIUM + D 600-400 MG-UNIT TABLET 2 TABLET WITH FOOD ORALLY ONCE A DAY TAKING PERCOCET 7.5-325 MG TABLET 1-2 ORALLY Q4-6H PRN PAIN MDD4, NOTES: PAIN CLINIC TAKING SALINE NASAL SPRAY 0.65 % SOLUTION 2 DROPS IN EACH NOSTRIL NEEDED NASALLY EVERY 2 HRS NOT-TAKING CYCLOBENZAPRINE HCL 10 MG TABLET 1 TABLET ORALLY THREE TIMES A DAY ONLY NEEDED FOR FLARE-UP OF MUSCLE SPASM MEDICATION LIST REVIEWED AND RECONCILED WITH THE PATIENT PAST MEDICAL HISTORY HYPOTHYROIDISM ESOPHAGEAL REFLUX DISC DISEASE ARTHRITIS 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 PAIN OTHER MALAISE AND FATIGUE OBESITY -GASTRIC BYPASS, JULY 2011 ANXIETY NEURASTHENIA SCIATICA BACK PAIN - LUMBAR - PAIN CLINIC OTHER SPECIFIED IDIOPATHIC PERIPHERAL NEUROPATHY PAIN IN JOINT, LOWER LEG PAIN IN THORACIC SPINE DEPRESSION,DYSTHYMIC DISORDER VITAMIN D DEFICIENCY ALLERGIC RHINITIS SLEEP APNEA, OBSTRUCTIVE - REFUSED CPAP, FOLLOWS WITH NEUROLOGY RESTLESS LEGS SYNDROME - NEUROLOGY ALLERGIES PENICILLIN: CAN'T BREATHE: ALLERGY CODEINE: NAUSEA: ALLERGY ERYTHROMYCIN: NAUSEA/VOMITING: ALLERGY INH: RASH: ALLERGY SURGICAL HISTORY TORI KNEE 09/09 10/10 TUBAL CARPAL TUNNEL RT HAND 01/22/2002 COLONOSCOPY 05/04/09 GASTRIC BYPASS JULY 2011 D&C KNEE REPLACEMENT 03-11-13 SOCIAL HISTORY GENERAL: TOBACCO USE ARE YOU A:FORMER SMOKER FORMER SMOKER HOW LONG HAS IT BEEN SINCE YOU LAST SMOKED?> 10 YEARS LUNG CANCER SCREENING SMOKING STATUS:FORMER SMOKER HX 46 PACK YEARS - QUIT 1996 IS THE PATIENT BETWEEN THE AGE OF 57 AND 79?YES HAVE YOU QUIT SMOKING WITHIN THE PAST 15 YEARS?NO BMI CARE GOAL FOLLOW-UP ABOVE NORMAL BMI FOLLOW-UPDIETARY MANAGEMENT EDUCATION, GUIDANCE, AND COUNSELING, GIVING ENCOURAGEMENT TO EXERCISE ALCOHOL SCREENING DID YOU HAVE A DRINK CONTAINING ALCOHOL IN THE PAST YEAR?YES HOW OFTEN DID YOU HAVE A DRINK CONTAINING ALCOHOL IN THE PAST YEAR?MONTHLY OR LESS (1 POINT) HOW MANY DRINKS DID YOU HAVE ON A TYPICAL DAY WHEN YOU WERE DRINKING IN THE PAST YEAR?1 OR 2 (0 POINTS) HOW OFTEN DID YOU HAVE SIX OR MORE DRINKS ON ONE OCCASION IN THE PAST YEAR?NEVER (0 POINTS) POINTS1 INTERPRETATIONNEGATIVE RECREATIONAL DRUG USE DRUG USE?NO CAFFEINE 1-2/DAY. 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 DIET: REGULAR, NO ADDED SALT, DECREASING CALORIES. EXERCISE: ACTIVE AND STAIRS AT HOME. MARITAL STATUS: . OTHERS AT HOME: SPOUSE. PETS: NONE. HOAHAOISM [id number] JEHOVAH WITNESS LANGUAGE MALAGASY. 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 LARA CLEREGGIE PHONE # OF POA? [phone] DO YOU HAVE A COPY WITH YOU?NO HAVE YOU HAD A COPY OF ANY ADVANCED DIRECTIVE (LISTED ABOVE) ON A PREVIOUS MEDICAL RECORDS AT [facility]?NO DOMESTIC VIOLENCE NONE. REVIEW OF SYSTEMS REVIEWED BY: PROVIDER: RE SKAGGS . CONSTITUTIONAL: ANY CHANGE IN YOUR MEDICAL CONDITION? NO . CHILLS NO . FEVER NO . INFECTION: DO YOU HAVE NEW INFECTIONS? NO . DO YOU HAVE HISTORY OF MRSA? NO . MUSCULOSKELETAL: ANY NEW PATTERNS OF PAIN OR NUMBNESS? NO . GASTROENTEROLOGY: ANY NEW CHANGE IN BOWEL CONTROL? NO . GENITOURINARY: ANY NEW CHANGE IN BLADDER CONTROL? NO . IS THERE A CHANCE YOU COULD BE ? NO . HEMATOLOGY/LYMPH: DO YOU TAKE ANY BLOOD THINNERS? (FOR EXAMPLE- COUMADIN, PLAVIX, AGGRENOX, PLATEL, PRADAXA, OR XARELTO) NO . WHEN WAS YOUR LAST DOSE? DATE: TIME: . NEUROLOGY: HAVE YOU FALLEN IN THE PAST 6 MONTHS? NO . ANY NEW EXTREMITY NUMBNESS OR WEAKNESS? NO . CARDIOLOGY: DO YOU HAVE A PACEMAKER OR DEFIBRILLATOR? NO . RESPIRATORY: HAVE YOU BEEN SICK IN THE PAST WEEK? NO . FEVER NO . FLU LIKE SYMPTOMS? NO . COUGH NO . INTEGUMENTARY: DO YOU HAVE ANY RASHES OR OPEN SORES? NO . ALLERGIC/IMMUNO: ARE YOU ALLERGIC TO SHELLFISH OR IV DYE? NO . ANY NEW ALLERGIES? NO . PSYCHIATRIC: DO YOU HAVE THOUGHTS OF HURTING YOURSELF OR SOMEONE ELSE? NO . ARE YOU ABUSED, NEGLECTED, OR IN AN UNSAFE ENVIRONMENT? NO . ENDOCRINOLOGY: ARE YOU DIABETIC? NO . OTHER: DO YOU NEED ANY PRESCRIPTIONS? YES . IF YES, PLEASE LIST: PERCOCET . ANY NEW PROBLEMS WITH YOUR MEDICATIONS? NO . WHEN DID YOU LAST EAT? ____ . WHEN DID YOU LAST DRINK? ____ . WHAT DID YOU LAST DRINK? ____ . NAME OF PERSON DRIVING YOU HOME? ____ . DO YOU HAVE ANY OTHER QUESTIONS OR CONCERNS YES, MY DAUGHTER . VITAL SIGNS WT 205 LBS, HT 63 IN, BMI 36.31 INDEX, BP 125/80 MM HG, HR 100 /MIN, RR 18 /MIN, TEMP 98.5 F, OXYGEN SAT % 96%, SAFE IN ENV? (Y/N) YES, REVIEWED BY: ROSEMARY (DONE AT 1415). EXAMINATION GENERAL EXAMINATION: GENERAL APPEARANCE:AWAKE,ALERT ,COMFORTABLE. PSYCHAFFECT NORMAL. LUNGS:LUNG LEBRON ARE CLEAR TO AUSCULTATION BILATERALLY. GOOD MOVEMENT OF AIR. HEART:S1, S2 IN A REGULAR RATE AND RHYTHM. NO SIGNIFICANT MURMURS, RUBS OR GALLOPS NOTED. ASSESSMENTS LOW BACK PAIN OF OVER 3 MONTHS DURATION - M54.5 (PRIMARY) CHRONIC MYOFASCIAL PAIN - M79.1 TREATMENT LOW BACK PAIN OF OVER 3 MONTHS DURATION NOTES: CONTINUE WITH CONSERVATIVE CARE AND PRIMARY CARE ASSISTANCE WITH ARTHRITIC FLARE-UPS. PROCEDURE CODES FA211 ESTABILISHED PATIENT [facility] CHARGE DISPOSITION & COMMUNICATION FOLLOW UP PT WILL CALL ELECTRONICALLY SIGNED BY GILES DO ON 04/24/2017 AT 07:32 PM EDT DISCLAIMER : THIS IS A VISIT SUMMARY EXTRACTED FROM THE [employer] CHART. IT IS NOT A COPY OF THE [employer] PROGRESS NOTE. KARLEY
== END ==
LOC: M PAIN 14:00
PROVIDERS: ATTEND Nurse Practitioner Family
DX: M54.5 Low back pain (principal); M79.1 Myalgia; G89.29 Other chronic pain; E55.9 Vitamin D deficiency, unspecified; E03.9 Hypothyroidism, unspecified; K21.9 Gastro-esophageal reflux disease without esophagitis; J30.9 Allergic rhinitis, unspecified; Z79.2 Long term (current) use of antibiotics; Z79.899 Other long term (current) drug therapy; Z87.891 Personal history of nicotine dependence; Z88.0 Allergy status to penicillin; Z88.1 Allergy status to other antibiotic agents; Z88.5 Allergy status to narcotic agent

== ENCOUNTER → 2017-04-07 | Outpatient (REF) | payer MEDICARE, MEDICAID | LOC: M SFHCWAGY 09:10 | PROVIDERS: ATTEND Family Medicine | DX: Z12.4 Encounter for screening for malignant neoplasm of cervix (principal) ==

== ENCOUNTER → 2017-04-07 | Outpatient (CLI) | payer MEDICARE, MEDICAID ==
--- NOTE | 2017-04-07 10:09 | REP ---
Bilateral screening digital mammogram: The patient states she has had a clinical breast exam in over a year. There are no palpable abnormalities or other breast complaints. There is dense breast parenchyma in the subareolar zones, the remainder of the breast parenchyma is predominantly adipose. This is unchanged. There has been no interval development of masses, areas of structural distortion or clusters of microcalcifications typical of malignancy. Impression: There is no evidence of malignancy. BIRADS category one negative mammogram. BI-RADS/ACR category 1 mammogram. Negative. Routine annual screening mammography is recommended. The patient should have a repeat mammogram in 1 year. This mammogram was interpreted with the aid of an FDA-approved computer-aided detection system. A. Negative x-ray reports should not delay biopsy if a dominant or clinically suspicious mass is present. B. Four to eight percent of cancers are not identified by x-ray. C. Adenosis and dense breasts may obscure an underlying neoplasm. The patient letter being requested is M1 dense breasts.
== END ==
LOC: M WHC 08:41
PROVIDERS: ATTEND Family Medicine
DX: Z01.419 Encounter for gynecological examination (general) (routine) without abnormal findings (principal); Z12.31 Encounter for screening mammogram for malignant neoplasm of breast; Z12.12 Encounter for screening for malignant neoplasm of rectum
CPT/HCPCS: G0101; G0123; G0202; G0463

== ENCOUNTER 2017-05-23 10:27 | Outpatient (RCR) | payer MEDICARE, MEDICAID | END 2017-06-01 | LOC: M PT 10:27 | PROVIDERS: ATTEND Otolaryngology | DX: Z51.89 Encounter for other specified aftercare (principal); R42 Dizziness and giddiness | CPT/HCPCS: 97110; 97162; G8978; G8979 ==

== ENCOUNTER → 2017-06-01 | Outpatient (REF) | payer MEDICARE, MEDICAID ==
[2017-06-01 19:13] LABS: BASO # 0.1 10^3/uL (0.0-0.2); BASO % 0.8 % (0.0-1.0); EOS # 0.2 10^3/uL (0.0-0.50); EOS % 1.7 % (0.0-3.0); LYMPH # 3.2 10^3/uL (1.5-4.5); LYMPH % 29.9 % (24.0-44.0); MEAN CORPUSCULAR HEMOGLOBIN 28.9 pg (27.0-33.0); MEAN CORPUSCULAR HGB CONC 32.4 g/dl (32.0-36.5); MEAN CORPUSCULAR VOLUME 89.2 fl (80.0-96.0); MONO # 1.1 10^3/uL (0.0-0.8); MONO % 9.9 % (0.0-5.0); NEUTROPHILS % 56.7 % (36.0-66.0); PLATELET COUNT, AUTOMATED 403 10^3/uL (150-450); RED CELL DISTRIBUTION WIDTH 12.9 % (11.5-14.5); WHITE BLOOD COUNT 10.7 10^3/uL (4.0-10.0)
[2017-06-01 20:19] LABS: FOLATE 16.9 NG/ML
[2017-06-01 20:20] LABS: ALBUMIN 3.7 GM/DL (3.2-5.2); ALBUMIN/GLOBULIN RATIO 0.93 (1.00-1.93); BILIRUBIN,TOTAL 0.2 MG/DL (0.2-1.0); CALCIUM LEVEL 8.8 MG/DL (8.8-10.2); CREATININE FOR GFR 1.11 MG/DL (0.55-1.02); GLOMERULAR FILTRATION RATE 53.4 (>45); TOTAL PROTEIN 7.7 GM/DL (6.4-8.2)
== END ==
LOC: M SFHCPLAZ 15:14
PROVIDERS: ATTEND Nurse Practitioner Family
DX: R20.2 Paresthesia of skin (principal)
CPT/HCPCS: 36415; 80053; 82607; 82746; 83735; 85025; G0463

== ENCOUNTER 2017-06-09 11:03 | Outpatient (RCR) | payer MEDICARE, MEDICAID | END 2017-07-02 | LOC: M PT 11:03 | DX: Z51.89 Encounter for other specified aftercare (principal); R42 Dizziness and giddiness | CPT/HCPCS: 97112 ==

== ENCOUNTER 2017-09-10 15:20 | Emergency (ER) | payer MEDICARE, MEDICAID ==
[2017-09-10] MEDS: BACLOFEN 10 MG TAB PO (17:59)
[2017-09-10] MEDS: HYDROmorphone HCL 1 MG/ML SYRINGE (J1170) IM (18:00)
== END 2017-09-10 18:31 | disposition home or self-care (01) ==
LOC: M ED 15:20
DX: G89.29 Other chronic pain (principal); M54.5 Low back pain; E03.9 Hypothyroidism, unspecified; G25.81 Restless legs syndrome; M19.90 Unspecified osteoarthritis, unspecified site; F41.9 Anxiety disorder, unspecified; F32.9 Major depressive disorder, single episode, unspecified; Z98.84 Bariatric surgery status; Z87.891 Personal history of nicotine dependence; Z79.899 Other long term (current) drug therapy; Z88.6 Allergy status to analgesic agent; Z88.5 Allergy status to narcotic agent; Z88.1 Allergy status to other antibiotic agents; Z91.89 Other specified personal risk factors, not elsewhere classified; Z88.0 Allergy status to penicillin
CPT/HCPCS: J1170

== ENCOUNTER → 2017-11-22 | Outpatient (REF) | payer MEDICARE, MEDICAID ==
[2017-11-22 14:25] LABS: HEMATOCRIT 41.5 % (36.0-47.0); HEMOGLOBIN 13.7 g/dl (12.0-15.5); MEAN CORPUSCULAR HEMOGLOBIN 29.4 pg (27.0-33.0); MEAN CORPUSCULAR VOLUME 89.1 fl (80.0-96.0); PLATELET COUNT, AUTOMATED 340 10^3/uL (150-450); RED BLOOD COUNT 4.66 10^6/uL (4.00-5.40); WHITE BLOOD COUNT 7.7 10^3/uL (4.0-10.0)
[2017-11-22 14:35] LABS: TOTAL 25(OH) VITAMIN D 38.5 NG/ML (30.0-100.0)
[2017-11-22 14:39] LABS: ALBUMIN 3.9 GM/DL (3.2-5.2); ALBUMIN/GLOBULIN RATIO 1.03 (1.00-1.93); ALKALINE PHOSPHATASE 92 U/L (45-117); ALT/SGPT 23 U/L (12-78); ANION GAP 8 MEQ/L (8-16); AST/SGOT 17 U/L (7-37); BILIRUBIN,TOTAL 0.3 MG/DL (0.2-1.0); BLOOD UREA NITROGEN 16 MG/DL (7-18); CALCIUM LEVEL 8.8 MG/DL (8.8-10.2); CARBON DIOXIDE LEVEL 26 MEQ/L (21-32); CHLORIDE LEVEL 108 MEQ/L (98-107); CREATININE FOR GFR 1.19 MG/DL (0.55-1.30); FREE T4 0.88 NG/DL (0.76-1.46); GLOMERULAR FILTRATION RATE 49.3 (>45); GLUCOSE, FASTING 73 MG/DL (70-100); POTASSIUM SERUM 4.1 MEQ/L (3.5-5.1); SODIUM LEVEL 142 MEQ/L (136-145); TOTAL PROTEIN 7.7 GM/DL (6.4-8.2)
== END ==
LOC: M SFHCPLAZ 09:23
DX: D64.9 Anemia, unspecified (principal); K21.9 Gastro-esophageal reflux disease without esophagitis; E03.9 Hypothyroidism, unspecified; E55.9 Vitamin D deficiency, unspecified; E66.01 Morbid (severe) obesity due to excess calories; Z68.37 Body mass index [BMI] 37.0-37.9, adult
CPT/HCPCS: 84443

== ENCOUNTER → 2017-12-04 | Outpatient (CLI) | payer MEDICARE, MEDICAID | LOC: M RAD 07:57 | DX: M25.511 Pain in right shoulder (principal) | CPT/HCPCS: 73030 ==

== ENCOUNTER 2017-12-19 13:06 | Outpatient (RCR) | payer MEDICARE, MEDICAID | END 2017-12-30 | LOC: M PT 13:06 | DX: Z51.89 Encounter for other specified aftercare (principal); M25.511 Pain in right shoulder | CPT/HCPCS: 97110 ==

== ENCOUNTER 2018-01-17 15:06 | Emergency (ER) | payer MEDICARE, MEDICAID ==
[2018-01-17] MEDS: HYDROMORPHONE HCL 0.5 MG/ 0.5 ML SYRINGE (J1170 PER 1) IM ×2 (16:12→17:47)
[2018-01-17] MEDS: BACLOFEN 10 MG TAB PO (16:12)
== END 2018-01-17 18:14 | disposition home or self-care (01) ==
LOC: M ED 15:06
DX: M62.838 Other muscle spasm (principal); E03.9 Hypothyroidism, unspecified; F41.9 Anxiety disorder, unspecified; F32.9 Major depressive disorder, single episode, unspecified; Z79.899 Other long term (current) drug therapy; Z88.6 Allergy status to analgesic agent; Z88.5 Allergy status to narcotic agent; Z88.1 Allergy status to other antibiotic agents; Z88.0 Allergy status to penicillin; Z91.89 Other specified personal risk factors, not elsewhere classified
CPT/HCPCS: J1170

== ENCOUNTER 2018-01-18 00:12 | Emergency (ER) | payer MEDICARE, MEDICAID ==
[2018-01-18] MEDS: METHOCARBAMOL 1,000 MG/10 ML VIAL (J2800) IV (03:37)
== END 2018-01-18 03:45 | disposition home or self-care (01) ==
LOC: M ED 00:12
DX: G89.29 Other chronic pain (principal); M54.9 Dorsalgia, unspecified; K21.9 Gastro-esophageal reflux disease without esophagitis; M62.830 Muscle spasm of back; E03.9 Hypothyroidism, unspecified; Z79.899 Other long term (current) drug therapy; Z88.6 Allergy status to analgesic agent; Z88.5 Allergy status to narcotic agent; Z88.0 Allergy status to penicillin; Z88.8 Allergy status to other drugs, medicaments and biological substances; Z91.89 Other specified personal risk factors, not elsewhere classified
CPT/HCPCS: J2800

== ENCOUNTER → 2018-01-23 | Outpatient (CLI) | payer MEDICARE, MEDICAID | LOC: M WUC 17:56 | DX: R05 Cough (principal); E03.9 Hypothyroidism, unspecified | CPT/HCPCS: 71046; 84443 ==

== ENCOUNTER → 2018-01-23 | Outpatient (REF) | payer MEDICARE, MEDICAID ==
[2018-01-23 16:21] LABS: FREE T4 1.09 NG/DL (0.76-1.46)
== END ==
LOC: M SFHCPLAZ 14:35
DX: E03.9 Hypothyroidism, unspecified (principal)
CPT/HCPCS: 84443

== ENCOUNTER → 2018-02-08 | Outpatient (CLI) | payer MEDICARE, MEDICAID | LOC: M PAIN 09:00 | DX: Z53.29 Procedure and treatment not carried out because of patient's decision for other reasons (principal) ==

== ENCOUNTER → 2018-02-19 | Outpatient (REF) | payer MEDICARE, MEDICAID ==
[2018-02-19 14:00] LABS: RHEUMATOID FACTOR QUANT < 10.0 IU/ML (<15.0)
[2018-02-19 14:38] LABS: ERYTHROCYTE SEDIMENTATION RATE 29 mm/hr (0-30)
== END ==
LOC: M SFHCPLAZ 11:47
DX: R09.1 Pleurisy (principal); M25.50 Pain in unspecified joint
CPT/HCPCS: 86140

== ENCOUNTER 2018-02-20 10:20 | Emergency (ER) | payer MEDICARE, MEDICAID ==
[2018-02-20] MEDS: diazePAM 5 MG TAB PO (11:14)
[2018-02-20] MEDS: ONDANSETRON 4 MG ORAL DISINTEGRATING TAB (Q0162 PER 1MG) PO (11:14)
[2018-02-20] MEDS: HYDROMORPHONE HCL 0.5 MG/ 0.5 ML SYRINGE (J1170 PER 1) IM (11:14)
== END 2018-02-20 12:16 | disposition home or self-care (01) ==
LOC: M ED 10:20
DX: S29.012A Strain of muscle and tendon of back wall of thorax, initial encounter (principal); X58.XXXA Exposure to other specified factors, initial encounter; Y92.89 Other specified places as the place of occurrence of the external cause; M51.34 Other intervertebral disc degeneration, thoracic region; G89.29 Other chronic pain; F33.9 Major depressive disorder, recurrent, unspecified; G25.81 Restless legs syndrome; K21.9 Gastro-esophageal reflux disease without esophagitis; E07.9 Disorder of thyroid, unspecified; Z87.891 Personal history of nicotine dependence; Z98.0 Intestinal bypass and anastomosis status; Z98.890 Other specified postprocedural states; Z88.5 Allergy status to narcotic agent; Z88.1 Allergy status to other antibiotic agents; Z88.8 Allergy status to other drugs, medicaments and biological substances; Z88.0 Allergy status to penicillin; Z79.890 Hormone replacement therapy
CPT/HCPCS: Q0162

== ENCOUNTER 2018-02-22 10:54 | Emergency (ER) | payer MEDICARE, MEDICAID ==
[2018-02-22] MEDS: diazePAM 10 MG TAB PO (12:22)
== END 2018-02-22 13:12 | disposition home or self-care (01) ==
LOC: M ED 10:54
DX: M54.5 Low back pain (principal); G89.29 Other chronic pain; M51.36 Other intervertebral disc degeneration, lumbar region; G25.81 Restless legs syndrome; Z87.891 Personal history of nicotine dependence; Z98.84 Bariatric surgery status; Z96.652 Presence of left artificial knee joint
CPT/HCPCS: 71046

== ENCOUNTER → 2018-03-28 | Outpatient (CLI) | payer MEDICARE, MEDICAID | LOC: M PAIN 14:00 | DX: M54.5 Low back pain (principal); M79.1 Myalgia; E03.9 Hypothyroidism, unspecified; K21.9 Gastro-esophageal reflux disease without esophagitis; G25.81 Restless legs syndrome; G47.33 Obstructive sleep apnea (adult) (pediatric); E66.9 Obesity, unspecified; F34.1 Dysthymic disorder; E55.9 Vitamin D deficiency, unspecified; J30.9 Allergic rhinitis, unspecified; Z88.0 Allergy status to penicillin; Z88.5 Allergy status to narcotic agent; Z88.8 Allergy status to other drugs, medicaments and biological substances; Z79.899 Other long term (current) drug therapy; Z98.84 Bariatric surgery status; Z68.36 Body mass index [BMI] 36.0-36.9, adult | CPT/HCPCS: G0463 ==

== ENCOUNTER 2018-05-13 18:35 | Emergency (ER) | payer MEDICARE, MEDICAID ==
[2018-05-13] MEDS: HYDROMORPHONE HCL 0.5 MG/ 0.5 ML SYRINGE (J1170 PER 1) IM (19:21)
[2018-05-13] MEDS: HYDROmorphone 2 MG TAB PO (19:58)
== END 2018-05-13 20:03 | disposition home or self-care (01) ==
LOC: M ED 18:35
DX: M62.838 Other muscle spasm (principal); G89.29 Other chronic pain; M54.9 Dorsalgia, unspecified; E03.9 Hypothyroidism, unspecified; F33.9 Major depressive disorder, recurrent, unspecified; G25.81 Restless legs syndrome; Z79.899 Other long term (current) drug therapy; Z79.890 Hormone replacement therapy; Z88.0 Allergy status to penicillin; Z88.1 Allergy status to other antibiotic agents; Z88.5 Allergy status to narcotic agent; Z88.8 Allergy status to other drugs, medicaments and biological substances
CPT/HCPCS: J1170

== ENCOUNTER → 2018-05-14 | Outpatient (REF) | payer MEDICARE, MEDICAID ==
[2018-05-14 19:06] LABS: CPK CREATINE PHOSPHOKINASE 118 U/L (26-192)
[2018-05-16 14:14] LABS: IgG P18 AB Absent (.); IgG P23 AB Absent (.); IgG P28 AB Absent (.); IgG P30 AB Absent (.); IgG P39 AB Absent (.); IgG P41 AB Present (.); IgG P45 AB Absent (.); IgG P58 AB Absent (.); IgG P66 AB Absent (.); IgG P93 AB Absent (.); IgM P23 AB Absent (.); IgM P39 AB Absent (.); IgM P41 AB Absent (.); LYME IgG WB INTERPRETATION Negative (.); LYME IgM WB INTERPRETATION Negative (.)
== END ==
LOC: M SFHCPLAZ 15:34
DX: M62.838 Other muscle spasm (principal)
CPT/HCPCS: 82550

== ENCOUNTER → 2018-05-30 | Outpatient (REF) | payer MEDICARE, MEDICAID ==
[2018-05-30 18:15] LABS: BASO # 0.1 10^3/uL (0.0-0.2); BASO % 0.7 % (0.0-1.0); EOS # 0.1 10^3/uL (0.0-0.50); EOS % 1.7 % (0.0-3.0); HEMATOCRIT 41.6 % (36.0-47.0); HEMOGLOBIN 13.4 g/dl (12.0-15.5); IMMATURE GRANULOCYTE % 0.5 % (0-3.0); LYMPH # 2.6 10^3/uL (1.5-4.5); LYMPH % 31.8 % (24.0-44.0); MEAN CORPUSCULAR HEMOGLOBIN 29.5 pg (27.0-33.0); MEAN CORPUSCULAR HGB CONC 32.2 g/dl (32.0-36.5); MEAN CORPUSCULAR VOLUME 91.4 fl (80.0-96.0); MONO # 0.7 10^3/uL (0.0-0.8); MONO % 7.8 % (0.0-5.0); NEUTROPHILS # 4.8 10^3/uL (1.8-7.7); NEUTROPHILS % 57.5 % (36.0-66.0); PLATELET COUNT, AUTOMATED 369 10^3/uL (150-450); RED BLOOD COUNT 4.55 10^6/uL (4.00-5.40); RED CELL DISTRIBUTION WIDTH 12.9 % (11.5-14.5); WHITE BLOOD COUNT 8.3 10^3/uL (4.0-10.0)
[2018-05-30 18:17] LABS: ALBUMIN 3.7 GM/DL (3.2-5.2); ALBUMIN/GLOBULIN RATIO 1.03 (1.00-1.93); ALKALINE PHOSPHATASE 83 U/L (45-117); ALT/SGPT 23 U/L (12-78); ANION GAP 7 MEQ/L (8-16); AST/SGOT 16 U/L (7-37); BILIRUBIN,TOTAL 0.3 MG/DL (0.2-1.0); BLOOD UREA NITROGEN 17 MG/DL (7-18); CALCIUM LEVEL 8.6 MG/DL (8.8-10.2); CARBON DIOXIDE LEVEL 28 MEQ/L (21-32); CHLORIDE LEVEL 106 MEQ/L (98-107); CREATININE FOR GFR 1.11 MG/DL (0.55-1.30); FERRITIN 22 NG/ML (8-252); GLOMERULAR FILTRATION RATE 53.2 (>45); GLUCOSE, FASTING 70 MG/DL (70-100); POTASSIUM SERUM 4.2 MEQ/L (3.5-5.1); SODIUM LEVEL 141 MEQ/L (136-145); TOTAL PROTEIN 7.3 GM/DL (6.4-8.2)
[2018-05-30 18:24] LABS: FOLATE 11.9 NG/ML; VITAMIN B12 LEVEL 371 PG/ML
== END ==
LOC: M LABNEURO 12:56
DX: E53.8 Deficiency of other specified B group vitamins (principal); E61.1 Iron deficiency
CPT/HCPCS: 82746

== ENCOUNTER → 2018-06-29 | Outpatient (CLI) | payer MEDICARE, MEDICAID ==
[~2018-06-29] MED LIST changes: +CYCL10TA PO; +FLUTISP; -LASI20TA PO; +LASI20TA3 PO; +LEVO125T4 PO; +PRED20TA PO; +VALI5TAB PO
--- NOTE | 2018-07-24 01:29 | ECWPNPC ---
PATIENT NAME: JUAN BELLE : 1955 GENDER: FEMALE VISIT DATE: 06/29/2018 DISCHARGE DATE: 06/29/18 1133 VISIT LOCKED DATE TIME: PHYSICIAN: RE JACKSON RESOURCE: RE JACKSON REASON FOR APPOINTMENT 1. BACK PAIN HISTORY OF PRESENT ILLNESS HISTORY OF PRESENT ILLNESS: HERE FOR CHRONIC NECK AND LOW BACK PAIN.ALSO HAS GENERALIZED JOINT PAIN.RATING PAIN LEVEL 6/10 VAS.HAS INTERMITTENT SEVERE LOWER THORACIC PAIN LEFT >RIGHT MUSCLE SPASM. PAIN THE PATIENT DESCRIBES THE PAIN... FALL RISK SCREENING: SCREENING :NO FALLS IN THE PAST YEAR CURRENT MEDICATIONS TAKING PREDNISONE 20 MG TABLET 1 TABLET ORALLY ONCE A DAY PRN FLANK SPASM TAKING ERYTHROMYCIN 2 % GEL APPLY TO NECK AND HAIRLINE TWO TIMES A DAY UNTIL CLEAR THEN NEEDED WITH FLARE EXTERNAL , NOTES: JUST NEEDED TAKING MIRAPEX ER 0.75 MG TABLET EXTENDED RELEASE 24 HOUR 1 TABLET ORALLY TWICE A DAY TAKING TYLENOL 8 HOUR 650 MG TABLET EXTENDED RELEASE 2 TABLETS NEEDED ORALLY EVERY 8 HRS TAKING LEVOTHYROXINE SODIUM 125 MCG TABLET 1 TABLET ON AN EMPTY STOMACH IN THE MORNING ORALLY ONCE A DAY TAKING EFFEXOR XR 37.5 MG CAPSULE EXTENDED RELEASE 24 HOUR 1 CAPSULE WITH FOOD ORALLY ONCE A DAY TAKING FLONASE 50 MCG/ACT SUSPENSION 1 SPRAY IN EACH NOSTRIL NASALLY ONCE DAILY NEEDED TAKING NEXIUM 40 MG CAPSULE DELAYED RELEASE 1 TAB ORALLY ONCE A DAY MEDICATION LIST REVIEWED AND RECONCILED WITH THE PATIENT PAST MEDICAL HISTORY HYPOTHYROIDISM ESOPHAGEAL REFLUX RESTLESS LEG SYNDROME - DR. CASTANON OTOGENIC PAIN AND DIZZINESS - EVALUATED BY DR. CASTANON, SYMPTOMS IMPROVED NEUROPATHY IN CORNER OF LEFT MOUTH AND LEFT TONGUE - DR. CASTANON SLEEP APNEA, OBSTRUCTIVE - REFUSED CPAP, FOLLOWS WITH NEUROLOGY OBESITY - GASTRIC BYPASS, JULY 2011 DEPRESSION, DYSTHYMIC DISORDER ANXIETY ARTHRITIS - GENERALIZED CHRONIC LOW BACK PAIN - PREVIOUSLY SEEN AT THE PAIN CLINIC SCIATICA VITAMIN D DEFICIENCY ALLERGIC RHINITIS DRY EYE- CP CLINIC ALLERGIES BUPROPION HCL ER (XL): AGITATION: SIDE EFFECTS CYMBALTA: WORSENING OF RLS: SIDE EFFECTS LEXAPRO: AGITATION: SIDE EFFECTS BUSPAR: DROWSY: SIDE EFFECTS PENICILLIN (FOR ALLERGIES USE ONLY): ANAPHYLAXIS: ALLERGY CODEINE SULFATE: GI UPSET: ALLERGY INH (PER PATIENT): RASH: ALLERGY IODINE: RASH: ALLERGY FLEXERIL: NON THERAPEUTIC: LACK OF THERAPEUTIC EFFECT PERCOCET: NAUSEA/VOMITING: ALLERGY SURGICAL HISTORY BTL D&C CARPAL TUNNEL RT HAND 01/22/2002 COLONOSCOPY 05/04/09 LEFT KNEE REPLACEMENT 2009 VERTICAL SLEEVECTOMY FOR OBESITY 07/2011 FAMILY HISTORY FATHER: 60 YRS, [place], DIAGNOSED WITH HEART DISEASE MOTHER: ALIVE, NO KNOWN MEDICAL PROBLEMS SON(S): ALIVE, SON HAS DEPRESSION PSORIATIC ARTHRITIS DAUGHTER(S): ALIVE, ONE DAUGHTER HAS BIPOLAR DISORDER AND SCHIZOPHRENIA; ONE DAUGHTER HAS DEPRESSION PATERNAL GRAND FATHER: , ALZHEIMER'S DEMENTIA PATERNAL GRAND MOTHER: , LYMPHOMA RHEUMATOID ARTHRITIS, DIAGNOSED WITH CANCER MATERNAL GRAND FATHER: MATERNAL GRAND MOTHER: ALIVE 106 YRS, NO KNOWN MEDICAL PROBLEMS 1 SON(S) , 2 DAUGHTER(S) . MATERNAL AUNT HAD BREAST CANCER; PATERNAL GRANDMOTHER HAD COLON CANCER IN EARLY 70SBOTH DAUGHTERS HAVE HIGH CHOLESTEROL. SOCIAL HISTORY GENERAL: TOBACCO USE ARE YOU A:FORMER SMOKER HOW LONG HAS IT BEEN SINCE YOU LAST SMOKED?> 10 YEARS LUNG CANCER SCREENING IS THE PATIENT BETWEEN THE AGE OF 57 AND 79?YES HAVE YOU QUIT SMOKING WITHIN THE PAST 15 YEARS?NO BMI CARE GOAL FOLLOW-UP ABOVE NORMAL BMI FOLLOW-UPGIVING ENCOURAGEMENT TO EXERCISE ALCOHOL SCREENING HOW OFTEN DID YOU HAVE A DRINK CONTAINING ALCOHOL IN THE PAST YEAR?MONTHLY OR LESS (1 POINT) HOW MANY DRINKS DID YOU HAVE ON A TYPICAL DAY WHEN YOU WERE DRINKING IN THE PAST YEAR?1 OR 2 (0 POINTS) HOW OFTEN DID YOU HAVE SIX OR MORE DRINKS ON ONE OCCASION IN THE PAST YEAR?NEVER (0 POINTS) DID YOU HAVE A DRINK CONTAINING ALCOHOL IN THE PAST YEAR?YES POINTS1 INTERPRETATIONNEGATIVE RECREATIONAL DRUG USE: NEVER DRUG USE?NO NO CAFFEINE CAFFEINE USE?NO SEXUAL HX HAD SEX IN THE LAST 12 MONTHS (VAGINAL, ORAL, OR ANAL)?NO HAVE YOU EVER HAD AN STD?NO HIV / HEP-C SCREENING HIV TEST OFFERED TO PATIENT:YES DATE OFFERED:01/23/2018 TEST ACCEPTED:NO REASON:PATIENT DECLINED BROCHURE PROVIDED TO PATIENTYES HEP-C TEST OFFERED TO PATIENT:YES DATE OFFERED:01/23/2018 TEST ACCEPTED:NO REASON:PATIENT DECLINED [employer] [id number] JEHOVAH WITNESS LANGUAGE LANGUAGES SPOKEN:KYRGYZ EDUCATION LEVEL OF EDUCATION:NOT FINISHED COLLEGE LEARNING BARRIERS / SPECIAL NEEDS CHANGE FROM LAST VISIT?NO BARRIERS TO LEARNING?NO HEARING IMPAIRED?NO VISION IMPAIRED?YES :CORRECTIVE LENSES COGNITIVELY IMPAIRED?NO READINESS TO LEARN?YES LEARNING PREFERENCES?NO LEARNING CAPABILITIES PRESENT?YES EMOTIONAL BARRIERS?NO SPECIAL DEVICES?YES :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 DIET: REGULAR. EXERCISE: NO REGULAR EXERCISE. MARITAL STATUS: , . OTHERS AT HOME: YES, SPOUSE, GRANDSON. IMMUNIZATION PROGRAM ELIGIBILITY STATUS UNCHANGED:__ PARENT LAST NAME:__ FIRST NAME, MIDDLE INITIAL:__ MOTHER'S MAIDEN NAME:__ MEDICAID/MEDICAID MANAGED CARE PLAN:__ NOT INSURED:__ /[place] RUBY:__ UNDERINSURED:__ CHILD HEALTH PLUS B__ INSURANCE:__ INFLUENZA VACCINE:__ MALE 6 MONTH RISK ASSESSMENT FOR STD MONOGOMOUS?YES HIV POSITIVE?NO EVER INJECT DRUGS?NO FEMALE 6 MONTH RISK ASSESSMENT FOR STD DESCRIBE YOUR SEXUAL PARTNERS:MALE MONOGAMOUS?YES EVER INJECT DRUGS?NO IS THERE ANYTHING ELSE WE SHOULD TALK ABOUT CONCERNING YOUR SEXUAL HISTORY OR PRACTICE?YES NEW PATIENT PAIN DIARY INTENSITY SCALE REVIEWED PAIN CLINIC PFS, CLERGY, PUBLIC HEALTH REFERRALS HAS THE PATIENT BEEN EDUCATED REGARDING HIS/HER PLAN OF CARE?YES HAS THE PATIENT BEEN EDUCATED REGARDING PAIN, THE RISK FOR PAIN, THE IMPORTANCE OF EFFECTIVE PAIN MANAGEMENT, AND THE PAIN ASSESSMENT PROCESS?YES HOUSING: HOUSE. ADVANCE DIRECTIVE ADVANCE DIRECTIVE DISCUSSED WITH PATIENT:YES HCP - LARA BELLE (); INSTRUCTED PATIENT TO BRING IN COPY NEXT VISIT. REVIEWED WITH PATIENT 06/29/18 1047 JS. HOSPITALIZATION/MAJOR DIAGNOSTIC PROCEDURE SURGERY RELATED REVIEW OF SYSTEMS REVIEWED BY: PROVIDER: RE SKAGGS . CONSTITUTIONAL: ANY CHANGE IN YOUR MEDICAL CONDITION? NO . CHILLS NO . FEVER NO . INFECTION: DO YOU HAVE NEW INFECTIONS? NO . DO YOU HAVE HISTORY OF MRSA? NO . MUSCULOSKELETAL: ANY NEW PATTERNS OF PAIN OR NUMBNESS? NO . GASTROENTEROLOGY: ANY NEW CHANGE IN BOWEL CONTROL? NO . GENITOURINARY: ANY NEW CHANGE IN BLADDER CONTROL? NO . IS THERE A CHANCE YOU COULD BE ? NO . HEMATOLOGY/LYMPH: DO YOU TAKE ANY BLOOD THINNERS? (FOR EXAMPLE- COUMADIN, PLAVIX, AGGRENOX, PLATEL, PRADAXA, OR XARELTO) NO . WHEN WAS YOUR LAST DOSE? DATE: TIME: . NEUROLOGY: HAVE YOU FALLEN IN THE PAST 6 MONTHS? NO . ANY NEW EXTREMITY NUMBNESS OR WEAKNESS? NO . CARDIOLOGY: DO YOU HAVE A PACEMAKER OR DEFIBRILLATOR? NO . RESPIRATORY: HAVE YOU BEEN SICK IN THE PAST WEEK? NO . FEVER NO . FLU LIKE SYMPTOMS? NO . COUGH NO . INTEGUMENTARY: DO YOU HAVE ANY RASHES OR OPEN SORES? NO . ALLERGIC/IMMUNO: ARE YOU ALLERGIC TO SHELLFISH OR IV DYE? NO . ANY NEW ALLERGIES? NO . PSYCHIATRIC: DO YOU HAVE THOUGHTS OF HURTING YOURSELF OR SOMEONE ELSE? NO . ARE YOU ABUSED, NEGLECTED, OR IN AN UNSAFE ENVIRONMENT? NO . ENDOCRINOLOGY: ARE YOU DIABETIC? NO . OTHER: DO YOU NEED ANY PRESCRIPTIONS? YES . IF YES, PLEASE LIST: ____SOMETHING FOR BACK SPASMS . ANY NEW PROBLEMS WITH YOUR MEDICATIONS? NO . WHEN DID YOU LAST EAT? ____ . WHEN DID YOU LAST DRINK? ____ . WHAT DID YOU LAST DRINK? ____ . NAME OF PERSON DRIVING YOU HOME? ____ . DO YOU HAVE ANY OTHER QUESTIONS OR CONCERNS NO . VITAL SIGNS WT 214.6 LBS, HT 63 IN, BMI 38.01 INDEX, BP 116/62 MM HG, HR 96 /MIN, RR 16 /MIN, TEMP 97.4 F, OXYGEN SAT % 96%, SAFE IN ENV? (Y/N) YES, NA INITIALS MI 10:38, REVIEWED BY: CARSON. EXAMINATION GENERAL EXAMINATION: GENERAL APPEARANCE:AWAKE,ALERT ,PLEAASANT . PSYCHAFFECT NORMAL . LUNGS:LUNG LEBRON ARE CLEAR TO AUSCULTATION BILATERALLY. GOOD MOVEMENT OF AIR . HEART:S1, S2 IN A REGULAR RATE AND RHYTHM. NO SIGNIFICANT MURMURS, RUBS OR GALLOPS NOTED . ASSESSMENTS CHRONIC MYOFASCIAL PAIN - M79.1 (PRIMARY) TREATMENT CHRONIC MYOFASCIAL PAIN START TIZANIDINE HCL TABLET, 4 MG, 1 TABLET NEEDED, ORALLY, Q6H PRN, 30 DAY(S), 20, REFILLS 1 NOTES: TAKE TIZANIDINE 4MG 1 TAB AT ONSET OF PAIN.MAY REPEAT IN 1 HOUR IF NO IMPROVEMENT.REPEAT EVERY 6 HRS X 3 DAYS. PROCEDURE CODES FA211 ESTABILISHED PATIENT [facility] CHARGE DISPOSITION & COMMUNICATION FOLLOW UP 3 MONTHS ELECTRONICALLY SIGNED BY GILES ALONZO ON 07/23/2018 AT 01:26 PM EST DISCLAIMER : THIS IS A VISIT SUMMARY EXTRACTED FROM THE [employer] CHART. IT IS NOT A COPY OF THE [employer] PROGRESS NOTE. MTDD
== END ==
LOC: M PAIN 10:30
PROVIDERS: ATTEND Nurse Practitioner Family
DX: M79.18 Myalgia, other site (principal); E03.9 Hypothyroidism, unspecified; K21.9 Gastro-esophageal reflux disease without esophagitis; G25.81 Restless legs syndrome; G47.33 Obstructive sleep apnea (adult) (pediatric); F32.9 Major depressive disorder, single episode, unspecified; F41.9 Anxiety disorder, unspecified; M15.0 Primary generalized (osteo)arthritis; J30.9 Allergic rhinitis, unspecified; E66.01 Morbid (severe) obesity due to excess calories; Z68.38 Body mass index [BMI] 38.0-38.9, adult; Z79.899 Other long term (current) drug therapy; Z88.0 Allergy status to penicillin; Z88.1 Allergy status to other antibiotic agents; Z88.5 Allergy status to narcotic agent; Z88.8 Allergy status to other drugs, medicaments and biological substances; Z98.84 Bariatric surgery status; Z96.652 Presence of left artificial knee joint; Z87.891 Personal history of nicotine dependence

== ENCOUNTER → 2018-10-13 | Outpatient (CLI) | payer MEDICARE, MEDICAID ==
[~2018-10-13] MED LIST changes: -/ESCI20TA OR; -/ESOM40CA OR; +LEXA1TAB2 OR; +NEXI1CAP3 OR
--- NOTE | 2018-10-15 09:27 | REP ---
Chest x-ray: Two views. History: Wheezing and cough. Comparison chest x-ray February 22, 2018. Findings: The lungs are symmetrically aerated and free of infiltrate. Pleural angles are sharp. Heart size is normal. There is an old healed rib fracture on the right laterally. Pulmonary vasculature is not increased. Impression: No acute disease. Electronically Signed by Chavo Ontiveros MD 10/14/2018 08:22 A
== END ==
LOC: M RAD 19:40
PROVIDERS: ATTEND Nurse Practitioner Family
DX: R06.2 Wheezing (principal); R05 Cough

== ENCOUNTER → 2018-10-30 | Outpatient (REF) | payer MEDICARE, MEDICAID ==
[2018-10-30 18:42] LABS: BASO # 0.1 10^3/uL (0.0-0.2); BASO % 0.6 % (0.0-1.0); EOS # 0.3 10^3/uL (0.0-0.50); HEMATOCRIT 42.8 % (36.0-47.0); HEMOGLOBIN 13.7 g/dl (12.0-15.5); LYMPH # 2.9 10^3/uL (1.5-4.5); LYMPH % 18.5 % (24.0-44.0); MEAN CORPUSCULAR HEMOGLOBIN 27.8 pg (27.0-33.0); MONO # 1.1 10^3/uL (0.0-0.8); MONO % 7.1 % (0.0-5.0); NEUTROPHILS # 11.3 10^3/uL (1.8-7.7); NEUTROPHILS % 71.3 % (36.0-66.0); PLATELET COUNT, AUTOMATED 423 10^3/uL (150-450); RED BLOOD COUNT 4.92 10^6/uL (4.00-5.40); WHITE BLOOD COUNT 15.8 10^3/uL (4.0-10.0)
== END ==
LOC: M SFHCPLAZ 15:25
PROVIDERS: ATTEND Nurse Practitioner Family
DX: J06.9 Acute upper respiratory infection, unspecified (principal)

== ENCOUNTER → 2018-10-30 | Outpatient (CLI) | payer MEDICARE, MEDICAID ==
--- NOTE | 2018-10-30 16:59 | REP ---
UNILATERAL RIGHT RIBS, PA CHEST, SIX VIEWS: HISTORY: Costochondritis. COMPARISON: 10/13/2018 The lungs are clear. The heart is normal in size. The pulmonary vasculature is normal in appearance. The bony structure is intact. IMPRESSION: No acute disease. Electronically Signed by Mauro Brown MD 10/30/2018 05:05 P
== END ==
LOC: M SMT 15:52
PROVIDERS: ATTEND Nurse Practitioner Family
DX: M94.0 Chondrocostal junction syndrome [Tietze] (principal)
CPT/HCPCS: 36415; 71101; 85025; G0463

== ENCOUNTER → 2018-11-09 | Outpatient (REF) | payer MEDICARE, MEDICAID ==
[2018-11-09 13:50] LABS: BASO # 0.1 10^3/uL (0.0-0.2); BASO % 0.9 % (0.0-1.0); EOS # 0.1 10^3/uL (0.0-0.50); EOS % 0.9 % (0.0-3.0); HEMATOCRIT 43.1 % (36.0-47.0); HEMOGLOBIN 13.8 g/dl (12.0-15.5); LYMPH # 1.7 10^3/uL (1.5-4.5); LYMPH % 12.6 % (24.0-44.0); MEAN CORPUSCULAR HEMOGLOBIN 28.2 pg (27.0-33.0); MONO # 0.5 10^3/uL (0.0-0.8); NEUTROPHILS # 10.3 10^3/uL (1.8-7.7); NEUTROPHILS % 77.8 % (36.0-66.0); PLATELET COUNT, AUTOMATED 507 10^3/uL (150-450); WHITE BLOOD COUNT 13.2 10^3/uL (4.0-10.0)
[2018-11-09 14:21] LABS: ERYTHROCYTE SEDIMENTATION RATE 33 mm/hr (0-30)
== END ==
LOC: M SFHCPLAZ 11:40
PROVIDERS: ATTEND Family Medicine
DX: J32.9 Chronic sinusitis, unspecified (principal)
CPT/HCPCS: 36415; 85025; 85652; 86140; G0463

== ENCOUNTER → 2018-11-16 | Outpatient (CLI) | payer MEDICARE, MEDICAID ==
--- NOTE | 2018-11-16 15:01 | REP ---
MAXILLOFACIAL CT WITHOUT CONTRAST: HISTORY: Sinusitis. The sinuses are clear. The osteomeatal units are patent. The middle and inferior nasal turbinates are partially paradoxical. There is minimal deviation of the nasal septum to the left. A small spur is present arising from the left side of the nasal septum. This spurs abuts the left inferior nasal turbinate. The cribriform plate, medial garcia of the orbits and optic canals are intact. The carotid canals form a segment of the posterolateral garcia of the sphenoid sinus. IMPRESSION: There is no acute or chronic sinusitis. Electronically Signed by Mauro Brown MD 11/16/2018 03:04 P
== END ==
LOC: M RAD 13:23
PROVIDERS: ATTEND Family Medicine
DX: J32.9 Chronic sinusitis, unspecified (principal)

== ENCOUNTER 2018-12-09 14:42 | Emergency (ER) | payer MEDICARE, MEDICAID ==
[~2018-12-09] VITALS: Ht 157.5 cm; Wt 100.9 kg
[2018-12-09] MEDS ORDERED: TIZA4TAB4 PO (15:19)
[2018-12-09] MEDS ORDERED: diazePAM 10 MG TAB PO ONE (15:30)
[2018-12-09] MEDS ORDERED: ONDANSETRON 4 MG ORAL DISINTEGRATING TAB (Q0162 PER 1MG) PO ONE (15:30)
[2018-12-09] MEDS ORDERED: KETOROLAC 60 MG/2 ML VIAL (J1885) IM ONE (15:30)
[2018-12-09 16:39] VITALS: BP 127/81
== END 2018-12-09 16:41 | disposition home or self-care (01) ==
LOC: M ED 14:42
DX: M54.5 Low back pain (principal); Z87.891 Personal history of nicotine dependence; Z79.899 Other long term (current) drug therapy; Z88.0 Allergy status to penicillin; Z88.5 Allergy status to narcotic agent; Z88.1 Allergy status to other antibiotic agents; Z91.89 Other specified personal risk factors, not elsewhere classified
CPT/HCPCS: 96372; 99283; J1885; Q0162

== ENCOUNTER → 2019-03-07 | Outpatient (CLI) | payer OTHER ==
[~2019-03-07] MED LIST changes: +TIZA4TAB4 PO
--- NOTE | 2019-03-22 02:30 | ECWPNPC ---
PATIENT NAME: JUAN BELLE : 1955 GENDER: FEMALE VISIT DATE: 03/07/2019 DISCHARGE DATE: 03/07/19 1015 VISIT LOCKED DATE TIME: PHYSICIAN: RE JACKSON RESOURCE: RE JACKSON REASON FOR APPOINTMENT 1. BACK PAIN HISTORY OF PRESENT ILLNESS HISTORY OF PRESENT ILLNESS: HERE FOR CHRONIC NECK AND LOW BACK PAIN.ALSO HAS GENERALIZED JOINT PAIN.RATING PAIN LEVEL 4/10 VAS.HAS INTERMITTENT SEVERE LOWER THORACIC PAIN LEFT >RIGHT MUSCLE SPASM.TRIALED ON TIZANIDINE AT LAST VISIT 6 MONTHS AGO FOR SEVERE MUSCLE SPASM BUT IT CAUSED FATIGUE AND NO IMPROVEMENT IN PAIN.CURRENTLY FOLLOWS WITH PRIMARY CARE AND IS GETTING BACLOFEN WHICH SHE FINDS HELPFUL. PAIN THE PATIENT DESCRIBES THE PAIN... THE PATIENT DESCRIBES THE PAIN... FALL RISK SCREENING: SCREENING :NO FALLS REPORTED IN THE LAST YEAR CURRENT MEDICATIONS TAKING ERYTHROMYCIN 2 % GEL APPLY TO NECK AND HAIRLINE TWO TIMES A DAY UNTIL CLEAR THEN NEEDED WITH FLARE EXTERNAL , NOTES: JUST NEEDED TAKING MIRAPEX ER 0.75 MG TABLET EXTENDED RELEASE 24 HOUR 1 TABLET ORALLY TWICE A DAY TAKING TYLENOL 8 HOUR 650 MG TABLET EXTENDED RELEASE 2 TABLETS NEEDED ORALLY EVERY 8 HRS TAKING FLONASE 50 MCG/ACT SUSPENSION 1 SPRAY IN EACH NOSTRIL NASALLY ONCE DAILY NEEDED TAKING VENTOLIN HFA 108 (90 BASE) MCG/ACT AEROSOL SOLUTION 2 PUFFS NEEDED INHALATION EVERY 6 HRS TAKING LORATADINE 10 MG TABLET 1 TABLET ORALLY ONCE A DAY TAKING LEVOTHYROXINE SODIUM 125 MCG TABLET 1 TABLET ON AN EMPTY STOMACH IN THE MORNING ORALLY ONCE A DAY TAKING NEXIUM 40 MG CAPSULE DELAYED RELEASE 1 TAB ORALLY ONCE A DAY TAKING BACLOFEN 10 MG TABLET 1 TABLET WITH FOOD OR MILK ORALLY THREE TIMES A DAY TAKING DOXYCYCLINE 40 MG CAPSULE DELAYED RELEASE 1 CAPSULE ON AN EMPTY STOMACH IN THE MORNING ORALLY ONCE A DAY, NOTES: NOT SURE OF DOSE NOT-TAKING TIZANIDINE HCL 4 MG TABLET 1 TABLET NEEDED ORALLY THREE TIMES A DAY MEDICATION LIST REVIEWED AND RECONCILED WITH THE PATIENT PAST MEDICAL HISTORY HYPOTHYROIDISM ESOPHAGEAL REFLUX RESTLESS LEG SYNDROME - DR. CASTANON OTOGENIC PAIN AND DIZZINESS - EVALUATED BY DR. CASTANON, SYMPTOMS IMPROVED NEUROPATHY IN CORNER OF LEFT MOUTH AND LEFT TONGUE - DR. CASTANON SLEEP APNEA, OBSTRUCTIVE - REFUSED CPAP, FOLLOWS WITH NEUROLOGY OBESITY - GASTRIC BYPASS, JULY 2011 DEPRESSION, DYSTHYMIC DISORDER ANXIETY ARTHRITIS - GENERALIZED CHRONIC LOW BACK PAIN - PREVIOUSLY SEEN AT THE PAIN CLINIC SCIATICA VITAMIN D DEFICIENCY ALLERGIC RHINITIS DRY EYE- CP CLINIC ALLERGIES BUPROPION HCL ER (XL): AGITATION - SIDE EFFECTS CYMBALTA: WORSENING OF RLS - SIDE EFFECTS LEXAPRO: AGITATION - SIDE EFFECTS BUSPAR: DROWSY - SIDE EFFECTS PENICILLIN (FOR ALLERGIES USE ONLY): ANAPHYLAXIS - ALLERGY CODEINE SULFATE: GI UPSET - ALLERGY INH (PER PATIENT): RASH - ALLERGY IODINE: RASH - ALLERGY FLEXERIL: NON THERAPEUTIC - LACK OF THERAPEUTIC EFFECT PERCOCET: NAUSEA/VOMITING - ALLERGY SURGICAL HISTORY BTL D&C CARPAL TUNNEL RT HAND 01/22/2002 COLONOSCOPY 05/04/09 LEFT KNEE REPLACEMENT 2009 VERTICAL SLEEVECTOMY FOR OBESITY 07/2011 FAMILY HISTORY FATHER: 60 YRS, [place], DIAGNOSED WITH UNSPECIFIED HEART DISEASE MOTHER: ALIVE, NO KNOWN MEDICAL PROBLEMS SON(S): ALIVE, SON HAS DEPRESSION PSORIATIC ARTHRITIS DAUGHTER(S): ALIVE, ONE DAUGHTER HAS BIPOLAR DISORDER AND SCHIZOPHRENIA; ONE DAUGHTER HAS DEPRESSION PATERNAL GRAND FATHER: , ALZHEIMER'S DEMENTIA PATERNAL GRAND MOTHER: , LYMPHOMA RHEUMATOID ARTHRITIS, OTHER MALIGNANT NEOPLASM OF UNSPECIFIED SITE MATERNAL GRAND FATHER: MATERNAL GRAND MOTHER: ALIVE 107 YRS, NO KNOWN MEDICAL PROBLEMS 1 SON(S) , 2 DAUGHTER(S) . MATERNAL AUNT HAD BREAST CANCER; PATERNAL GRANDMOTHER HAD COLON CANCER IN EARLY 70SBOTH DAUGHTERS HAVE HIGH CHOLESTEROL. SOCIAL HISTORY GENERAL: MALE 6 MONTH RISK ASSESSMENT FOR STD MONOGOMOUS?YES HIV POSITIVE?NO EVER INJECT DRUGS?NO HOUSING: HOUSE. EDUCATION LEVEL OF EDUCATION:NOT FINISHED COLLEGE LANGUAGE LANGUAGES SPOKEN:KENYAN NO DOMESTIC VIOLENCE STATUS: DO YOU FEEL SAFE IN YOUR ENVIRONMENT?YES NEW PATIENT PAIN DIARY INTENSITY SCALE REVIEWED LUNG CANCER SCREENING IS THE PATIENT BETWEEN THE AGE OF 57 AND 79?YES HAVE YOU QUIT SMOKING WITHIN THE PAST 15 YEARS?NO PAIN CLINIC PFS, CLERGY, PUBLIC HEALTH REFERRALS HAS THE PATIENT BEEN EDUCATED REGARDING HIS/HER PLAN OF CARE?YES HAS THE PATIENT BEEN EDUCATED REGARDING PAIN, THE RISK FOR PAIN, THE IMPORTANCE OF EFFECTIVE PAIN MANAGEMENT, AND THE PAIN ASSESSMENT PROCESS?YES LATEX QUESTIONNAIRE LATEX ALLERGY : HAVE YOU EVER DEVELOPED ANY TYPE OF REACTION AFTER HANDLING LATEX PRODUCTS SUCH RUBBER GLOVES, CONDOMS, DIAPHRAGMS, BALLOONS, SOCKS, OR UNDERWEAR?NO LATEX ALLERGY : HAVE YOU EVER DEVELOPED ANY TYPE OF REACTION DURING OR AFTER DENTAL APPOINTMENT, VAGINAL/RECTAL EXAMINATION, SURGICAL PROCEDURE, OR ANY OTHER EXPOSURE?NO DATE ASKED : 10/30/2018 LATEX RISK : HAVE YOU EVER HAD ANY DIFFICULTY BREATHING OR HIVES AFTER EATING OR HANDLING ANY FRUITS, OR VEGETABLES; SUCH KIWI, BANANAS, STONE FRUITS, OR CHESTNUTSNO LATEX RISK : DO YOU HAVE A PREVIOUS PERSONAL HISTORY OF MORE THAN NINE SURGERIES, SPINA BIFIDA, OR REPEATED CATHERIZATIONS? NO LATEX RISK : ARE YOU FREQUENTLY EXPOSED TO LATEX PRODUCTS IN YOUR OCCUPATION?NO UATSDIN [id number] JEHOVAH WITNESS MARITAL STATUS: , . FEMALE 6 MONTH RISK ASSESSMENT FOR STD DESCRIBE YOUR SEXUAL PARTNERS:MALE MONOGAMOUS?YES EVER INJECT DRUGS?NO IS THERE ANYTHING ELSE WE SHOULD TALK ABOUT CONCERNING YOUR SEXUAL HISTORY OR PRACTICE?YES ALCOHOL SCREENING DID YOU HAVE A DRINK CONTAINING ALCOHOL IN THE PAST YEAR?YES HOW OFTEN DID YOU HAVE SIX OR MORE DRINKS ON ONE OCCASION IN THE PAST YEAR?NEVER (0 POINTS) HOW MANY DRINKS DID YOU HAVE ON A TYPICAL DAY WHEN YOU WERE DRINKING IN THE PAST YEAR?1 OR 2 (0 POINTS) HOW OFTEN DID YOU HAVE A DRINK CONTAINING ALCOHOL IN THE PAST YEAR?MONTHLY OR LESS (1 POINT) POINTS1 INTERPRETATIONNEGATIVE SEXUAL HX HAD SEX IN THE LAST 12 MONTHS (VAGINAL, ORAL, OR ANAL)?NO HAVE YOU EVER HAD AN STD?NO TOBACCO USE ARE YOU A:FORMER SMOKER HOW LONG HAS IT BEEN SINCE YOU LAST SMOKED?> 10 YEARS HIV / HEP-C SCREENING HIV TEST OFFERED TO PATIENT:YES DATE OFFERED:01/23/2018 TEST ACCEPTED:NO HEP-C TEST OFFERED TO PATIENT:YES DATE OFFERED:01/23/2018 REASON:PATIENT DECLINED TEST ACCEPTED:NO REASON:PATIENT DECLINED BROCHURE PROVIDED TO [facility] IMMUNIZATION PROGRAM ELIGIBILITY STATUS UNCHANGED:__ PARENT LAST NAME:__ FIRST NAME, MIDDLE INITIAL:__ MOTHER'S MAIDEN NAME:__ MEDICAID/MEDICAID MANAGED CARE PLAN:__ NOT INSURED:__ /[place]:__ UNDERINSURED:__ CHILD HEALTH PLUS B__ INSURANCE:__ INFLUENZA VACCINE:__ OTHERS AT HOME: YES, SPOUSE, GRANDSON. DIET: REGULAR. BMI CARE GOAL FOLLOW-UP ABOVE NORMAL BMI FOLLOW-UPGIVING ENCOURAGEMENT TO EXERCISE RECREATIONAL DRUG USE: NEVER DRUG USE?NO EXERCISE: NO REGULAR EXERCISE. LEARNING BARRIERS / SPECIAL NEEDS CHANGE FROM LAST VISIT?NO BARRIERS TO LEARNING?NO HEARING IMPAIRED?NO VISION IMPAIRED?YES COGNITIVELY IMPAIRED?NO :CORRECTIVE LENSES READINESS TO LEARN?YES LEARNING PREFERENCES?NO LEARNING CAPABILITIES PRESENT?YES EMOTIONAL BARRIERS?NO SPECIAL DEVICES?NO COAL CARRIER NEEDED?NO NO CAFFEINE CAFFEINE USE?NO ADVANCE DIRECTIVE ADVANCE DIRECTIVE DISCUSSED WITH PATIENT:YES HCP - LARA BELLE (); INSTRUCTED PATIENT TO BRING IN COPY NEXT VISIT. 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 REVIEWED WITH PATIENT 06/29/18 1048 JS. HOSPITALIZATION/MAJOR DIAGNOSTIC PROCEDURE SURGERY RELATED REVIEW OF SYSTEMS REVIEWED BY: PROVIDER: RE SKAGGS . CONSTITUTIONAL: ANY CHANGE IN YOUR MEDICAL CONDITION? NO . CHILLS NO . FEVER NO . INFECTION: DO YOU HAVE NEW INFECTIONS? YES, LEG RASHES AND RIGHT ARM RASH PT WAS SEEN AND TXD FOR THIS PT WAS TOLD IT WAS CELLULITIS, PT PLACED ON DOXY FOR THIS03/04/19 WITH NO IMPROVEMENT . DO YOU HAVE HISTORY OF MRSA? NO . MUSCULOSKELETAL: ANY NEW PATTERNS OF PAIN OR NUMBNESS? NO . GASTROENTEROLOGY: ANY NEW CHANGE IN BOWEL CONTROL? NO . GENITOURINARY: ANY NEW CHANGE IN BLADDER CONTROL? NO . IS THERE A CHANCE YOU COULD BE ? NO . HEMATOLOGY/LYMPH: DO YOU TAKE ANY BLOOD THINNERS? (FOR EXAMPLE- COUMADIN, PLAVIX, AGGRENOX, PLATEL, PRADAXA, OR XARELTO) NO . WHEN WAS YOUR LAST DOSE? DATE: TIME: . NEUROLOGY: HAVE YOU FALLEN IN THE PAST 12 MONTHS? NO . ANY NEW EXTREMITY NUMBNESS OR WEAKNESS? NO . CARDIOLOGY: DO YOU HAVE A PACEMAKER OR DEFIBRILLATOR? NO . RESPIRATORY: HAVE YOU BEEN SICK IN THE PAST WEEK? YES, PT WAS SEEN FOR UPPER BACK PAIN SENT TO [facility] AND WAS TOLD NO INFECTION, UPPER BACK PAIN IS DISC RELATED PER [facility] . FEVER YES, LOW GRADE . FLU LIKE SYMPTOMS? NO . COUGH YES, YELLOW SPUTUM . INTEGUMENTARY: DO YOU HAVE ANY RASHES OR OPEN SORES? YES, LOWER LEGS AND UPPER ARMS . ALLERGIC/IMMUNO: ARE YOU ALLERGIC TO IV DYE? NO . ANY NEW ALLERGIES? NO . PSYCHIATRIC: DO YOU HAVE THOUGHTS OF HURTING YOURSELF OR SOMEONE ELSE? NO . ARE YOU ABUSED, NEGLECTED, OR IN AN UNSAFE ENVIRONMENT? NO . ENDOCRINOLOGY: ARE YOU DIABETIC? NO . OTHER: DO YOU NEED ANY PRESCRIPTIONS? NO . IF YES, PLEASE LIST: ____ . ANY NEW PROBLEMS WITH YOUR MEDICATIONS? YES, PT WAS STARTED ON TIZANIDINE BUT NO LONGER TAKES IT IT MAKES HER SLEEPY, NO PAIN RELIEF EITHER . WHEN DID YOU LAST EAT? ____ . WHEN DID YOU LAST DRINK? ____ . WHAT DID YOU LAST DRINK? ____ . NAME OF PERSON DRIVING YOU HOME? ____ . DO YOU HAVE ANY OTHER QUESTIONS OR CONCERNS NO . VITAL SIGNS WT 219.8 LBS, HT 63 IN, BMI 38.93 INDEX, BP 118/71 MM HG, HR 83 /MIN, RR 18 /MIN, TEMP 97.1 F, OXYGEN SAT % 98%, NA INITIALS SC 09:41, REVIEWED BY: EM. EXAMINATION GENERAL EXAMINATION: GENERALAWAKE,ALERT ,PLEAASANT . PSYCHAFFECT NORMAL . LUNGS:LUNG LEBRON ARE CLEAR TO AUSCULTATION BILATERALLY. GOOD MOVEMENT OF AIR . HEART:S1, S2 IN A REGULAR RATE AND RHYTHM. NO SIGNIFICANT MURMURS, RUBS OR GALLOPS NOTED . ASSESSMENTS MUSCLE SPASM - M62.838 (PRIMARY) TREATMENT MUSCLE SPASM NOTES: PATIENT WILL FOLLOW WITH PCP OR URGENT CARE FOR SEVERE INTERMITTENT SPASM PAIN. PROCEDURE CODES FA211 ESTABILISHED PATIENT [facility] CHARGE DISPOSITION & COMMUNICATION FOLLOW UP PT WILL CALL IF NEEDED ELECTRONICALLY SIGNED BY GILES ALONZO ON 03/21/2019 AT 08:49 AM EDT DISCLAIMER : THIS IS A VISIT SUMMARY EXTRACTED FROM THE [employer] CHART. IT IS NOT A COPY OF THE [employer] PROGRESS NOTE. KARLEY
== END ==
LOC: M PAIN 09:30
PROVIDERS: ATTEND Nurse Practitioner Family
DX: M62.838 Other muscle spasm (principal); G89.29 Other chronic pain; E03.9 Hypothyroidism, unspecified; K21.9 Gastro-esophageal reflux disease without esophagitis; G25.81 Restless legs syndrome; G47.33 Obstructive sleep apnea (adult) (pediatric); Z86.59 Personal history of other mental and behavioral disorders; Z96.652 Presence of left artificial knee joint; Z87.891 Personal history of nicotine dependence; Z88.0 Allergy status to penicillin; Z88.5 Allergy status to narcotic agent; Z88.8 Allergy status to other drugs, medicaments and biological substances; Z79.899 Other long term (current) drug therapy

== ENCOUNTER → 2019-03-11 | Outpatient (REF) | payer MEDICARE, OTHER | LOC: M SFHCPLAZ 11:57 | PROVIDERS: ATTEND Family Medicine | DX: L30.9 Dermatitis, unspecified (principal); R21 Rash and other nonspecific skin eruption ==

== ENCOUNTER → 2019-04-08 | Outpatient (REF) | payer MEDICARE, MEDICAID | LOC: M SFHCWAGY 15:42 | PROVIDERS: ATTEND Nurse Practitioner Family | DX: Z12.4 Encounter for screening for malignant neoplasm of cervix (principal); N95.8 Other specified menopausal and perimenopausal disorders | CPT/HCPCS: 87624; G0123 ==

== ENCOUNTER → 2019-04-08 | Outpatient (CLI) | payer MEDICARE, MEDICAID ==
--- NOTE | 2019-04-08 16:26 | REPMRS ---
Patient History The patient states she had a clinical breast exam in 04/2019. Patient is postmenopausal. Family history of breast cancer under age 50 in maternal aunt. No Hormone Replacement Therapy 3D TOMOSYNTHESIS WAS PERFORMED. [facility] lifetime risk for breast cancer is 9.8%. Digital Woman Screen Mammo: April 08, 2019 - Exam #: [id number] Bilateral CC and MLO view(s) were taken. Technologist: Yulisa Goodwin, Technologist Prior study comparison: April 07, 2017, digital woman screen mammo performed at [facility]. April 08, 2016, digital woman screen mammo performed at [facility]. FINDINGS: There are scattered fibroglandular densities. There has been no change in the appearance of the mammogram from the prior studies. There is a mild amount of residual fibroglandular tissue which is fairly symmetric. There is no interval development of dominant mass, architectural distortion, or clustered microcalcification suggestive of malignancy. Assessment: BI-RADS/ACR category 1 mammogram. Negative Mammogram. Recommendation Routine screening mammogram in 1 year (for women over age 40). This mammogram was interpreted with the aid of an FDA-approved computer-aided dectection system. Electronically Signed By: Xavier Charles MD 04/08/19 7937
== END ==
LOC: M WHC 15:05
PROVIDERS: ATTEND Nurse Practitioner Family
DX: Z01.419 Encounter for gynecological examination (general) (routine) without abnormal findings (principal); Z12.31 Encounter for screening mammogram for malignant neoplasm of breast; Z78.0 Asymptomatic menopausal state
CPT/HCPCS: 77063; 77067; 87624; G0123; G0463

== ENCOUNTER 2019-05-27 01:31 | Emergency (ER) | payer MEDICARE, MEDICAID ==
[~2019-05-27] VITALS: Ht 157.5 cm; Wt 100.0 kg
[2019-05-27] MEDS ORDERED: TYLE650T35 PO (01:39)
[2019-05-27] MEDS ORDERED: IBUP80TA PO (01:39)
[2019-05-27] MEDS ORDERED: PRED20TA PO (03:19)
[2019-05-27] MEDS ORDERED: ROBA750T4 PO (03:19)
[2019-05-27] MEDS ORDERED: predniSONE 20 MG TAB PO ONE (03:30)
[2019-05-27] MEDS ORDERED: METHOCARBAMOL 750 MG TAB PO ONE (03:30)
[2019-05-27 03:41] VITALS: BP 135/70
[2019-05-27] MEDS ORDERED: BACL10TA2 (22:09)
[2019-05-28] MEDS ORDERED: MORP15TA2 PO (03:30)
== END 2019-05-27 03:42 | disposition home or self-care (01) ==
LOC: M ED 01:31
DX: M62.830 Muscle spasm of back (principal); M51.9 Unspecified thoracic, thoracolumbar and lumbosacral intervertebral disc disorder; Z98.84 Bariatric surgery status; Z88.0 Allergy status to penicillin; Z88.5 Allergy status to narcotic agent; Z88.1 Allergy status to other antibiotic agents; Z88.8 Allergy status to other drugs, medicaments and biological substances; Z88.4 Allergy status to anesthetic agent; Z79.899 Other long term (current) drug therapy
CPT/HCPCS: 99283; G0463

== ENCOUNTER 2019-05-27 22:02 | Emergency (ER) | payer MEDICARE, MEDICAID ==
[~2019-05-27] VITALS: Ht 157.5 cm; Wt 122.7 kg
[~2019-05-27 22:02] MED LIST changes: +IBUP80TA PO; +ROBA750T4 PO; +TYLE650T35 PO
[2019-05-27] MEDS ORDERED: BACL10TA2 (22:09)
[2019-05-27] MEDS ORDERED: NS 1,000 ML IV ONE (23:30)
[2019-05-27] MEDS ORDERED: KETOROLAC 30 MG/ML VIAL (J1885) IV ONE (23:30)
[2019-05-27] MEDS ORDERED: METHOCARBAMOL 1,000 MG/10 ML VIAL (J2800) IV ONE (23:30)
[2019-05-27] MEDS ORDERED: ONDANSETRON 4MG/2ML VIAL (J2405) IV ONE (23:30)
[2019-05-28 00:32] LABS: BASO # 0.1 10^3/uL (0.0-0.2); BASO % 0.5 % (0.0-1.0); EOS # 0.1 10^3/uL (0.0-0.5); EOS % 0.7 % (0.0-3.0); LYMPH # 2.9 10^3/uL (1.5-5.0); LYMPH % 23.4 % (24.0-44.0); MEAN CORPUSCULAR HEMOGLOBIN 29.1 pg (27.0-33.0); MEAN CORPUSCULAR HGB CONC 33.3 g/dl (32.0-36.5); MEAN CORPUSCULAR VOLUME 87.4 fl (80.0-96.0); MONO # 1.1 10^3/uL (0.0-0.8); MONO % 9.2 % (0.0-5.0); NEUTROPHILS # 8.1 10^3/uL (1.5-8.5); NEUTROPHILS % 65.6 % (36.0-66.0); PLATELET COUNT, AUTOMATED 383 10^3/uL (150-450); RED BLOOD COUNT 4.46 10^6/uL (4.00-5.40); WHITE BLOOD COUNT 12.4 10^3/uL (4.0-10.0)
[2019-05-28 00:37] LABS: ALBUMIN 3.6 GM/DL (3.2-5.2); ALT/SGPT 24 U/L (12-78); BILIRUBIN,DIRECT < 0.1 MG/DL (0.0-0.2); BILIRUBIN,TOTAL 0.2 MG/DL (0.2-1.0); BLOOD UREA NITROGEN 23 MG/DL (7-18); CALCIUM LEVEL 8.9 MG/DL (8.8-10.2); CARBON DIOXIDE LEVEL 24 MEQ/L (21-32); CHLORIDE LEVEL 109 MEQ/L (98-107); CK-MB VALUE MASS 2.4 NG/ML (<3.6); CPK CREATINE PHOSPHOKINASE 148 U/L (26-192); GLOMERULAR FILTRATION RATE 44.2 (>45); GLUCOSE, FASTING 120 MG/DL (70-100); LIPASE 214 U/L (73-393); MB/CK RELATIVE INDEX 1.62 (< OR =4); SODIUM LEVEL 141 MEQ/L (136-145); TOTAL PROTEIN 7.7 GM/DL (6.4-8.2); TROPONIN I < 0.02 NG/ML (< 0.10)
[2019-05-28] MEDS: MORPHINE 4 MG/ML 1ML VIAL/SYRINGE (J2270) IV PRN ×2 (01:01→02:14)
--- NOTE | 2019-05-28 02:57 | REPVR ---
PROCEDURE INFORMATION: Exam: CT Abdomen And Pelvis Without Contrast Exam date and time: 05/28/2019 1:55 AM Age: 64 years old Clinical history: Abdominal pain; Flank; Right; Additional info: Right flank pain TECHNIQUE: Imaging protocol: Computed tomography of the abdomen and pelvis without contrast. Radiation optimization: All CT scans at this facility use at least one of these dose optimization techniques: automated exposure control; mA and/or kV adjustment per patient size (includes targeted exams where dose is matched to clinical indication); or iterative reconstruction. COMPARISON: No relevant prior studies available. FINDINGS: Lungs: Bilateral dependent atelectasis. Mediastinum: Small hiatal hernia. Liver: Normal. No mass. Gallbladder and bile ducts: Mildly distended gallbladder without other specific signs of acute cholecystitis. Correlate clinically. Pancreas: Normal. No ductal dilation. Spleen: Normal. No splenomegaly. Adrenals: Normal. No mass. Kidneys and ureters: No hydronephrosis or nephrolithiasis bilaterally. Stomach and bowel: Status post gastric sleeve. No bowel obstruction. Appendix: Normal appendix. Intraperitoneal space: Unremarkable. No free air. No significant fluid collection. Vasculature: Atherosclerotic disease of the abdominal aorta. Lymph nodes: Unremarkable. No enlarged lymph nodes. Bladder: Unremarkable as visualized. Reproductive: Unremarkable as visualized. Bones/joints: Unremarkable. No acute fracture. Soft tissues: Omental fat containing ventral abdominal wall hernia. Stranding of the fat may reflect omental infarct. IMPRESSION: 1. Omental fat containing ventral abdominal wall hernia. Stranding of the fat may reflect omental infarct. 2. No bowel obstruction. Normal appendix. 3. No hydronephrosis or nephrolithiasis bilaterally. 4. Mildly distended gallbladder without other specific signs of acute cholecystitis. Correlate clinically. Electronically signed by: Sravan Lynn On 05/28/2019 02:56:13 AM
[2019-05-28] MEDS ORDERED: MORP15TA2 PO (03:30)
[2019-05-28 03:38] VITALS: BP 94/52
== END 2019-05-28 03:45 | disposition home or self-care (01) ==
LOC: M ED 22:02
DX: M62.830 Muscle spasm of back (principal); R11.10 Vomiting, unspecified; M54.5 Low back pain; G89.29 Other chronic pain; E03.9 Hypothyroidism, unspecified; Z98.84 Bariatric surgery status; Z88.0 Allergy status to penicillin; Z88.8 Allergy status to other drugs, medicaments and biological substances; Z88.4 Allergy status to anesthetic agent; Z88.5 Allergy status to narcotic agent; Z88.1 Allergy status to other antibiotic agents; Z79.899 Other long term (current) drug therapy; Z79.52 Long term (current) use of systemic steroids; Z79.1 Long term (current) use of non-steroidal anti-inflammatories (NSAID)
CPT/HCPCS: 74176; 80048; 80076; 81001; 82550; 82553; 83690; 84484; 85025; 87086; 96361; 96374; 96375; 96376; 99284; J1885; J2270; J2405; J2800

== ENCOUNTER → 2019-07-25 | Outpatient (CLI) | payer MEDICARE ==
[~2019-07-25] MED LIST changes: +BACL10TA2; +MORP15TA2 PO
[2019-07-25 09:46] LABS: APPEARANCE, URINE HAZY (CLEAR); BACTERIA, URINE AUTO 1+ (NEGATIVE); BILIRUBIN, URINE AUTO NEGATIVE (NEGATIVE); BLOOD, URINE BLOOD NEGATIVE (NEGATIVE); COLOR, URINE YELLOW (YELLOW); GLUCOSE, URINE (UA) AUTO NEGATIVE (NEGATIVE); KETONE, URINE AUTO NEGATIVE (NEGATIVE); LEUKOCYTE ESTERASE, URINE AUTO NEGATIVE (NEGATIVE); MUCUS, URINE SMALL (NEGATIVE); NITRITE, URINE AUTO NEGATIVE (NEGATIVE); PROTEIN, URINE AUTO NEGATIVE (NEGATIVE); RBC, URINE AUTO 0 /HPF (0-3); SPECIFIC GRAVITY URINE AUTO 1.017 (1.002-1.035); SQUAMOUS EPITHELIAL CELL UR AU 1 /HPF (0-6); UROBILINOGEN, URINE AUTO 0.2 mg/dL (0.0-2.0); WBC, URINE AUTO 1 /HPF (0-3)
[2019-07-25 10:22] LABS: TOTAL PROTEIN,RANDOM URINE 14.1 MG/DL (0.0-12.0)
[2019-07-25 10:22] LABS: COMPLEMENT C3 138 MG/DL (90-180); COMPLEMENT C4 30 MG/DL (10-40)
== END ==
LOC: M LAB 08:23
PROVIDERS: ATTEND Dermatology
DX: R21 Rash and other nonspecific skin eruption (principal)

== ENCOUNTER → 2019-08-05 | Outpatient (CLI) | payer MEDICARE, MEDICAID ==
[2019-08-05 10:29] LABS: CREATININE FOR GFR 1.04 MG/DL (0.55-1.30); GLOMERULAR FILTRATION RATE 57.2 (>45); POTASSIUM SERUM 4.4 MEQ/L (3.5-5.1)
== END ==
LOC: M PLALAB 08:27
PROVIDERS: ATTEND Family Medicine
DX: E03.9 Hypothyroidism, unspecified (principal)

== ENCOUNTER 2019-08-23 08:56 | Day surgery (SDC) | payer MEDICARE, MEDICAID ==
[~2019-08-23] VITALS: Ht 157.5 cm; Wt 102.5 kg
[~2019-08-23 08:56] MED LIST changes: -BACL10TA2; +BACL10TA2 PO; +FLON1SPR; +NEXI40CA PO; +SYNT112T2 PO
[2019-08-23] MEDS ORDERED: propofoL 200 MG/20 ML VIAL As Ordered ONE ×2 (10:01→11:54)
--- NOTE | 2019-08-23 12:16 | ROOR ---
Patient Name: Devi Diamond Procedure Date: 08/23/2019 11:40 AM Date of : 1955 Age: 64 Room: [facility] Gender: Female Note Status: Finalized Procedure: Colonoscopy Indications: Screening for colon cancer: Family history of colorectal cancer in distant relative(s) 60 or older Providers: Logan Holguin MD Referring MD: Theresa Kurtz MD Requesting Provider: Medicines: Monitored Anesthesia Care Complications: No immediate complications. Procedure: Pre-Anesthesia Assessment: - Prior to the procedure, a History and Physical was performed, and patient medications and allergies were reviewed. The patient is competent. The risks and benefits of the procedure and the sedation options and risks were discussed with the patient. All questions were answered and informed consent was obtained. Patient identification and proposed procedure were verified by the physician, the nurse and the anesthesiologist in the procedure room. Mental Status Examination: alert and oriented. Airway Examination: normal oropharyngeal airway and neck mobility. Respiratory Examination: clear to auscultation. CV Examination: normal. Prophylactic Antibiotics: The patient does not require prophylactic antibiotics. Prior Anticoagulants: The patient has taken no previous anticoagulant or antiplatelet agents. ASA Grade Assessment: II - A patient with mild systemic disease. After reviewing the risks and benefits, the patient was deemed in satisfactory condition to undergo the procedure. The anesthesia plan was to use monitored anesthesia care (MAC). Immediately prior to administration of medications, the patient was re-assessed for adequacy to receive sedatives. The heart rate, respiratory rate, oxygen saturations, blood pressure, adequacy of pulmonary ventilation, and response to care were monitored throughout the procedure. The physical status of the patient was re-assessed after the procedure. The Colonoscope was introduced through the anus and advanced to the terminal ileum, with identification of the appendiceal orifice and IC valve. The colonoscopy was performed without difficulty. The patient tolerated the procedure well. The quality of the bowel preparation was good. The terminal ileum, ileocecal valve, appendiceal orifice, and rectum were photographed. Scope insertion time was 2 minutes. Scope withdrawal time was 9 minutes. The total duration of the procedure was 11 minutes. Findings: The perianal and digital rectal examinations were normal. The terminal ileum appeared normal. A 4 mm polyp was found in the cecum. The polyp was sessile. The polyp was removed with a jumbo cold forceps. Resection and retrieval were complete. Verification of patient identification for the specimen was done by the physician and nurse using the patient's name, date and medical record number. Estimated blood loss was minimal. A 3 mm polyp was found in the transverse colon. The polyp was sessile. The polyp was removed with a jumbo cold forceps. Resection and retrieval were complete. Multiple small and large-mouthed diverticula were found from sigmoid to descending colon. There was no evidence of diverticular bleeding. Non-bleeding external and internal hemorrhoids were found during retroflexion. The hemorrhoids were small. Impression: - The examined portion of the ileum was normal. - One 4 mm polyp in the cecum, removed with a jumbo cold forceps. Resected and retrieved. - One 3 mm polyp in the transverse colon, removed with a jumbo cold forceps. Resected and retrieved. - Moderate diverticulosis from sigmoid to descending colon. There was no evidence of diverticular bleeding. - Non-bleeding external and internal hemorrhoids. Recommendation: - Patient has a contact number available for emergencies. The signs and symptoms of potential delayed complications were discussed with the patient. Return to normal activities tomorrow. Written discharge instructions were provided to the patient. - High fiber diet. - Continue present medications. - Await pathology results. - Repeat colonoscopy in 5 years for surveillance based on pathology results. - Telephone GI clinic for pathology results in 2 weeks. - Return to primary care physician. Logan Holguin MD Logan Holguin MD 08/23/2019 12:16:46 PM Electronically signed by Logan Holguin MD Number of Addenda: 0 Note Initiated On: 08/23/2019 11:40 AM Estimated Blood Loss: Estimated blood loss was minimal.
[2019-08-23 12:39] VITALS: BP 119/65
== END 2019-08-23 12:42 | disposition home or self-care (01) ==
LOC: M OPP 08:56
PROVIDERS: ATTEND Internal Medicine Gastroenterology
DX: Z12.11 Encounter for screening for malignant neoplasm of colon (principal); Z80.0 Family history of malignant neoplasm of digestive organs; K64.8 Other hemorrhoids; K57.30 Diverticulosis of large intestine without perforation or abscess without bleeding; D12.0 Benign neoplasm of cecum; D12.3 Benign neoplasm of transverse colon; G47.30 Sleep apnea, unspecified; Z79.891 Long term (current) use of opiate analgesic; Z79.899 Other long term (current) drug therapy; Z88.0 Allergy status to penicillin; Z88.1 Allergy status to other antibiotic agents; Z88.5 Allergy status to narcotic agent; Z88.4 Allergy status to anesthetic agent; Z87.891 Personal history of nicotine dependence; Z98.84 Bariatric surgery status

== ENCOUNTER 2020-06-27 10:05 | Emergency (ER) | payer MEDICARE, MEDICAID ==
[~2020-06-27] VITALS: Ht 157.5 cm; Wt 110.4 kg
[~2020-06-27 10:05] MED LIST changes: +ACET650T61 PO; +CYCL-707 PO; -CYCL10TA PO; +MIRA0.752 PO; -MIRA0.753 PO; +MIRA1.5T PO; -MIRA1.5T4 PO; -TYLE650T35 PO
[2020-06-27] MEDS ORDERED: ROBA750T4 PO (11:27)
[2020-06-27] MEDS ORDERED: PRED20TA PO (11:27)
[2020-06-27] MEDS ORDERED: predniSONE 20 MG TAB PO ONE (11:30)
[2020-06-27 11:44] VITALS: BP 139/89
== END 2020-06-27 11:46 | disposition home or self-care (01) ==
LOC: M ED 10:05
DX: M62.830 Muscle spasm of back (principal); M54.5 Low back pain; G89.29 Other chronic pain; E03.9 Hypothyroidism, unspecified; G35 Multiple sclerosis; G47.33 Obstructive sleep apnea (adult) (pediatric); F41.9 Anxiety disorder, unspecified; F32.9 Major depressive disorder, single episode, unspecified; Z98.84 Bariatric surgery status; Z88.0 Allergy status to penicillin; Z88.8 Allergy status to other drugs, medicaments and biological substances; Z88.4 Allergy status to anesthetic agent; Z88.5 Allergy status to narcotic agent; Z88.1 Allergy status to other antibiotic agents; Z79.899 Other long term (current) drug therapy

== ENCOUNTER → 2020-07-24 | Outpatient (REF) | payer MEDICARE, MEDICAID ==
[2020-07-24 11:19] LABS: HEMATOCRIT 40.4 % (36.0-47.0); HEMATOCRIT 40.8 % (36.0-47.0); MEAN CORPUSCULAR HEMOGLOBIN 27.9 pg (27.0-33.0); MEAN CORPUSCULAR HGB CONC 32.2 g/dl (32.0-36.5); MEAN CORPUSCULAR VOLUME 86.7 fl (80.0-96.0); PLATELET COUNT, AUTOMATED 396 10^3/uL (150-450); RED BLOOD COUNT 4.66 10^6/uL (4.00-5.40); WHITE BLOOD COUNT 6.2 10^3/uL (4.0-10.0)
[2020-07-24 11:43] LABS: HEMOGLOBIN A1c 5.3 %
[2020-07-24 12:02] LABS: ALBUMIN 3.7 GM/DL (3.2-5.2); BILIRUBIN,TOTAL 0.3 MG/DL (0.2-1.0); CALCIUM LEVEL 9.4 MG/DL (8.8-10.2); CHOLESTEROL RISK RATIO 3.193 (<5); CREATININE FOR GFR 1.12 MG/DL (0.55-1.30); FREE T4 1.12 NG/DL (0.76-1.46); GLOMERULAR FILTRATION RATE 52.3 (>45); PERCENT SATURATION 9.8 % (13.2-45.0); PHOSPHORUS LEVEL 3.1 MG/DL (2.5-4.9); POTASSIUM SERUM 4.2 MEQ/L (3.5-5.1); THYROID STIMULATING HORMONE 1.01 uIU/ML (0.358-3.740); TOTAL 25(OH) VITAMIN D 26.4 NG/ML (30.0-100.0); TOTAL PROTEIN 7.4 GM/DL (6.4-8.2)
[2020-07-30 17:19] LABS: VITAMIN A, RETINOL LEVEL 45.7 ug/dL (22.0-69.5); VITAMIN B1 LEVEL WHOLE BLOOD 121.6 nmol/L (66.5-200.0)
== END ==
LOC: M SFHCPLAZ 08:17
PROVIDERS: ATTEND Family Medicine
DX: D64.9 Anemia, unspecified (principal); K90.9 Intestinal malabsorption, unspecified; E03.9 Hypothyroidism, unspecified; Z13.1 Encounter for screening for diabetes mellitus; E78.2 Mixed hyperlipidemia; Z98.84 Bariatric surgery status; E55.9 Vitamin D deficiency, unspecified

== ENCOUNTER 2020-10-04 08:56 | Emergency (ER) | payer MEDICARE, MEDICAID ==
[~2020-10-04] VITALS: Ht 157.5 cm; Wt 109.3 kg
[2020-10-04] MEDS ORDERED: PRAM1TAB7 (09:10)
[2020-10-04] MEDS ORDERED: FAMOTIDINE IV BAG 20 MG in IV 1 EA IV ONE (10:00)
[2020-10-04] MEDS ORDERED: diphenhydrAMINE 50MG/ML VIAL (J1200) IV ONE (10:00)
[2020-10-04] MEDS ORDERED: methylPREDNISolone 125MG 2ML VIAL IV ONE (10:00)
[2020-10-04 10:29] LABS: BASO # 0.1 10^3/uL (0.0-0.2); BASO % 0.5 % (0.0-1.0); EOS # 0.2 10^3/uL (0.0-0.5); EOS % 1.7 % (0.0-3.0); HEMATOCRIT 38.5 % (36.0-47.0); HEMOGLOBIN 12.1 g/dl (12.0-15.5); LYMPH % 21.8 % (24.0-44.0); MEAN CORPUSCULAR HEMOGLOBIN 27.4 pg (27.0-33.0); MEAN CORPUSCULAR HGB CONC 31.4 g/dl (32.0-36.5); MEAN CORPUSCULAR VOLUME 87.1 fl (80.0-96.0); MONO # 0.8 10^3/uL (0.0-0.8); MONO % 8.9 % (2.0-8.0); NEUTROPHILS # 6.2 10^3/uL (1.5-8.5); NEUTROPHILS % 66.5 % (36.0-66.0); PLATELET COUNT, AUTOMATED 341 10^3/uL (150-450); RED BLOOD COUNT 4.42 10^6/uL (4.00-5.40); WHITE BLOOD COUNT 9.3 10^3/uL (4.0-10.0)
[2020-10-04 10:39] LABS: INR 1.01; PROTHROMBIN TIME 13.5 SECONDS (12.5-14.3)
--- NOTE | 2020-10-04 10:39 | REP ---
INDICATION: CHEST PAIN. COMPARISON: PA and lateral chest dated 10/13/2018 and right rib series including PA chest dated 10/30/2018. TECHNIQUE: Portable AP chest with the patient upright. FINDINGS: There is focal increased density left costophrenic angle previous could represent infiltrate, effusion or combination. The lung sims are otherwise clear. Cardiac size is normal. The moshe, mediastinum, and skeletal structures are unremarkable. IMPRESSION: Increased density in the left costophrenic angle, effusion versus infiltrate versus combination. <Electronically signed by Xavier Roberts > 10/04/20 1035
[2020-10-04 10:40] LABS: PARTIAL THROMBOPLASTIN TIME 35.2 SECONDS (24.2-38.5)
[2020-10-04] MEDS ORDERED: ISOVUE-370 76% 100ML VIAL As Ordered ONE (10:41)
[2020-10-04 10:53] LABS: ALBUMIN 3.4 GM/DL (3.2-5.2); ALT/SGPT 18 U/L (12-78); BILIRUBIN,DIRECT 0.2 MG/DL (0.0-0.2); BILIRUBIN,TOTAL 0.3 MG/DL (0.2-1.0); CK-MB VALUE MASS 1.6 NG/ML (<3.6); CPK CREATINE PHOSPHOKINASE 81 U/L (26-192); FREE T4 1.16 NG/DL (0.76-1.46); MB/CK RELATIVE INDEX 1.98 (< OR =4); TOTAL PROTEIN 7.3 GM/DL (6.4-8.2); TROPONIN I < 0.02 NG/ML (< 0.10)
--- NOTE | 2020-10-04 11:48 | REP ---
INDICATION: R/O PE. COMPARISON: Portable plain film study performed earlier today TECHNIQUE: Chest CT with IV contrast, CT angiography FINDINGS: There are no emboli in the pulmonary trunk or central pulmonary arteries. There are no emboli in the pulmonary artery lobar segment branches. There is a focal infiltrate at the inferior tip of the left upper lobe lingular segment. Additionally, there is pleural thickening posteromedially in the right lower lobe. No lung nodules or masses are identified. No pleural effusion. There is no mediastinal or hilar lymph node enlargement. There is no axillary lymphadenopathy. The thoracic aorta is unremarkable. The cardiac size is normal. There is no pericardial effusion. The visualized upper abdominal contents are unremarkable. IMPRESSION: Infiltrate inferiorly in the lingula. Pleural thickening posteromedially in the right lower lobe. No pulmonary emboli. <Electronically signed by Xavier Roberts > 10/04/20 [id number]
[2020-10-04] MEDS ORDERED: DOXYCYCLINE HYCLATE 100MG TABLET PO ONE (12:35)
[2020-10-04] MEDS ORDERED: DOXY100C37 PO (12:36)
[2020-10-04 12:54] VITALS: BP 142/69
--- NOTE | 2020-10-04 19:24 | ECGEPIP ---
[facility] - ED Test Date: 2020-10-04 Pat Name: JUAN BELLE Department: Room: - Gender: Female Learning Support Specialist: STEFAN : 1955 Requested By: Chani Walker Order Number: [id number] Reading MD: Chani Walker Measurements Intervals [place] Rate: 66 P: 61 AR: 174 QRS: -14 QRSD: 74 T: 15 QT: 408 QTc: 427 Interpretive Statements Normal sinus rhythm leftward axis Nonspecific ST T wave changes No prior ECG for comparison Electronically Signed on 10-04-2020 19:23:31 EDT by Chani Walker
== END 2020-10-04 13:14 | disposition home or self-care (01) ==
LOC: M ED 08:56
DX: J18.9 Pneumonia, unspecified organism (principal); R04.2 Hemoptysis; G47.30 Sleep apnea, unspecified; E03.9 Hypothyroidism, unspecified; F41.9 Anxiety disorder, unspecified; F33.9 Major depressive disorder, recurrent, unspecified; Z79.890 Hormone replacement therapy; Z79.899 Other long term (current) drug therapy; Z88.0 Allergy status to penicillin; Z88.8 Allergy status to other drugs, medicaments and biological substances; Z88.6 Allergy status to analgesic agent; Z88.5 Allergy status to narcotic agent
CPT/HCPCS: 71045; 71275; 80047; 80076; 82550; 82553; 84439; 84443; 84484; 85025; 85610; 85730; 93005; 93041; 94760; 96374; 96375; 99285; J1200; J2930; Q9967

== ENCOUNTER → 2020-10-15 | Outpatient (REF) | payer MEDICARE ==
[~2020-10-15] MED LIST changes: +DOXY100C37 PO; +PRAM1TAB7
[2020-10-16 15:07] LABS: SSA SJOGRENS A <0.2 AI (0.0-0.9); SSB SJOGRENS B <0.2 AI (0.0-0.9)
== END ==
LOC: M SFHCPLAZ 11:55
PROVIDERS: ATTEND Family Medicine
DX: H04.123 Dry eye syndrome of bilateral lacrimal glands (principal)
CPT/HCPCS: 36415; 86235; G0463

== ENCOUNTER → 2020-10-15 | Outpatient (CLI) | payer MEDICARE ==
--- NOTE | 2020-10-16 06:15 | REPPI ---
INDICATION: J18.9 LINGULAR PNEUMONIA COMPARISON: 10/04/2020 TECHNIQUE: PA and lateral. FINDINGS: The mediastinum and cardiac silhouette are normal. The lung sims are clear and without acute consolidation, effusion, or pneumothorax. The skeletal structures are intact and normal. IMPRESSION: No acute cardiopulmonary process. Previous lingular infiltrate has resolved. <Electronically signed by Vidal Wood > 10/16/20 0611
== END ==
LOC: M PLAIMG 11:58
PROVIDERS: ATTEND Family Medicine
DX: J18.9 Pneumonia, unspecified organism (principal)

== ENCOUNTER → 2020-10-21 | Outpatient (CLI) | payer MEDICARE ==
--- NOTE | 2020-10-21 12:59 | REPPI ---
INDICATION: COUGH, HX RECENT PNEUMONIA. COMPARISON: 10/15/2020 the latest prior TECHNIQUE: PA and lateral views FINDINGS: The superior mediastinal structures are midline. The cardiac silhouette is unremarkable in size, shape, and position. The diaphragmatic surfaces of the lungs are regular, and the costophrenic angles are clear. The pulmonary sims are clear. The imaged osseous structures are intact. IMPRESSION: There is no acute cardiopulmonary disease. <Electronically signed by Malcom Mandujano > 10/21/20 1996
== END ==
LOC: M PLAIMG 12:42
PROVIDERS: ATTEND Physician Assistant
DX: R05 Cough (principal); M54.6 Pain in thoracic spine; Z87.01 Personal history of pneumonia (recurrent); Z20.822 Contact with and (suspected) exposure to COVID-19
CPT/HCPCS: 71046; 87426; U0003

== ENCOUNTER → 2020-12-02 | Outpatient (REF) | payer MEDICARE | LOC: M SFHCPLAZ 10:20 | PROVIDERS: ATTEND Physician Assistant | DX: J06.9 Acute upper respiratory infection, unspecified (principal) ==

== ENCOUNTER 2021-02-03 11:01 | Emergency (ER) | payer MEDICARE, MEDICAID ==
[~2021-02-03] VITALS: Ht 157.5 cm; Wt 109.8 kg
[~2021-02-03 11:01] MED LIST changes: +DOXY-443 PO; -DOXY100C37 PO; +TIZA10TA PO; -TIZA4TAB4 PO
[2021-02-03] MEDS ORDERED: KETOROLAC 30 MG/ML 1ML VIAL IV ONE (13:35)
[2021-02-03] MEDS ORDERED: ACETAMINOPHEN 325 MG TAB PO ONE (13:35)
[2021-02-03] MEDS ORDERED: ISOVUE-370 76% 100ML VIAL As Ordered ONE (13:57)
[2021-02-03] MEDS ORDERED: methylPREDNISolone 125MG 2ML VIAL IV ONE (14:00)
[2021-02-03] MEDS ORDERED: diphenhydrAMINE 50MG/ML VIAL (J1200) IV ONE (14:00)
[2021-02-03 15:27] LABS: BASO # 0.1 10^3/uL (0.0-0.2); BASO % 0.7 % (0.0-1.0); EOS # 0.3 10^3/uL (0.0-0.5); EOS % 3.7 % (0.0-3.0); HEMATOCRIT 40.8 % (36.0-47.0); HEMOGLOBIN 12.8 g/dl (12.0-15.5); LYMPH # 2.6 10^3/uL (1.5-5.0); MEAN CORPUSCULAR HEMOGLOBIN 27.5 pg (27.0-33.0); MEAN CORPUSCULAR HGB CONC 31.4 g/dl (32.0-36.5); MEAN CORPUSCULAR VOLUME 87.6 fl (80.0-96.0); MONO # 0.8 10^3/uL (0.0-0.8); MONO % 9.1 % (2.0-8.0); NEUTROPHILS # 4.6 10^3/uL (1.5-8.5); NEUTROPHILS % 55.1 % (36.0-66.0); PLATELET COUNT, AUTOMATED 361 10^3/uL (150-450); RED BLOOD COUNT 4.66 10^6/uL (4.00-5.40); WHITE BLOOD COUNT 8.3 10^3/uL (4.0-10.0)
[2021-02-03 15:50] LABS: CALCIUM LEVEL 9.3 MG/DL (8.8-10.2); CREATININE FOR GFR 1.08 MG/DL (0.55-1.30); GLOMERULAR FILTRATION RATE 54.5 (>45); POTASSIUM SERUM 3.8 MEQ/L (3.5-5.1)
[2021-02-03] MEDS ORDERED: diazePAM 10MG/2ML SYRINGE (J3360 PER 5MG) IV ONE (17:30)
[2021-02-03 17:41] LABS: APPEARANCE, URINE HAZY (CLEAR); BACTERIA, URINE AUTO NEGATIVE (NEGATIVE); BILIRUBIN, URINE AUTO NEGATIVE (NEGATIVE); BLOOD, URINE BLOOD NEGATIVE (NEGATIVE); COLOR, URINE STRAW (YELLOW); GLUCOSE, URINE (UA) AUTO NEGATIVE (NEGATIVE); KETONE, URINE AUTO NEGATIVE (NEGATIVE); LEUKOCYTE ESTERASE, URINE AUTO NEGATIVE (NEGATIVE); MUCUS, URINE SMALL (NEGATIVE); NITRITE, URINE AUTO NEGATIVE (NEGATIVE); PROTEIN, URINE AUTO NEGATIVE (NEGATIVE); RBC, URINE AUTO 1 /HPF (0-3); SPECIFIC GRAVITY URINE AUTO 1.032 (1.002-1.035); SQUAMOUS EPITHELIAL CELL UR AU 5 /HPF (0-6); UROBILINOGEN, URINE AUTO 0.2 mg/dL (0.0-2.0); WBC, URINE AUTO 1 /HPF (0-3)
[2021-02-03 17:57] VITALS: BP 129/82
[2021-02-03] MEDS ORDERED: VALI2TAB PO (18:11)
[2021-02-03] MEDS ORDERED: TRAM50TA2 PO (18:21)
== END 2021-02-03 18:26 | disposition home or self-care (01) ==
LOC: M ED 11:01
DX: M62.830 Muscle spasm of back (principal); G47.30 Sleep apnea, unspecified; E03.9 Hypothyroidism, unspecified; F41.9 Anxiety disorder, unspecified; F32.9 Major depressive disorder, single episode, unspecified; Z98.84 Bariatric surgery status; Z79.899 Other long term (current) drug therapy; Z88.0 Allergy status to penicillin; Z88.5 Allergy status to narcotic agent; Z88.8 Allergy status to other drugs, medicaments and biological substances; Z91.89 Other specified personal risk factors, not elsewhere classified
CPT/HCPCS: 71275; 80048; 81001; 85025; 96374; 96375; 99284; J1200; J1885; J2930; J3360; Q9967

== ENCOUNTER → 2021-02-08 | Outpatient (REF) | payer MEDICARE ==
[~2021-02-08] MED LIST changes: -DOXY-443 PO; +DOXY1CAP62 PO; -TIZA10TA PO; +TIZA4TAB4 PO; +TRAM50TA2 PO; +VALI2TAB PO
[2021-02-10 12:08] LABS: CREATININE, URINE 70.2 mg/dL (20.0-300.0)
== END ==
LOC: M SFHCPLAZ 16:51
PROVIDERS: ATTEND Family Medicine
DX: Z51.81 Encounter for therapeutic drug level monitoring (principal); Z79.899 Other long term (current) drug therapy
CPT/HCPCS: 80307; G0463

== ENCOUNTER → 2021-05-17 | Outpatient (CLI) | payer MEDICARE, MEDICAID ==
[~2021-05-17] MED LIST changes: +DOXY-443 PO; -DOXY1CAP62 PO
[2021-05-17 15:06] LABS: THYROID STIMULATING HORMONE 0.805 uIU/ML (0.358-3.740)
[2021-05-19 19:11] LABS: ANA (HEP2) Positive (.)
== END ==
LOC: M PLALAB 09:40
PROVIDERS: ATTEND Family Medicine
DX: E03.9 Hypothyroidism, unspecified (principal); L65.9 Nonscarring hair loss, unspecified; M32.9 Systemic lupus erythematosus, unspecified
CPT/HCPCS: 36415; 82728; 84443; 86038; G0463

== ENCOUNTER → 2021-10-15 | Outpatient (CLI) | payer MEDICARE, MEDICAID ==
[~2021-10-15] MED LIST changes: +TIZA10TA PO; -TIZA4TAB4 PO
[2021-10-15 13:48] LABS: HEMATOCRIT 39.5 % (36.0-47.0); HEMOGLOBIN 12.7 g/dl (12.0-15.5); MEAN CORPUSCULAR HEMOGLOBIN 27.1 pg (27.0-33.0); MEAN CORPUSCULAR HGB CONC 32.2 g/dl (32.0-36.5); MEAN CORPUSCULAR VOLUME 84.2 fl (80.0-96.0); PLATELET COUNT, AUTOMATED 459 10^3/uL (150-450); RED BLOOD COUNT 4.69 10^6/uL (4.00-5.40); WHITE BLOOD COUNT 9.1 10^3/uL (4.0-10.0)
[2021-10-15 14:41] LABS: ALBUMIN 3.7 GM/DL (3.2-5.2); BILIRUBIN,TOTAL 0.4 MG/DL (0.2-1.0); CALCIUM LEVEL 9.4 MG/DL (8.8-10.2); CHOLESTEROL RISK RATIO 3.403 (<5); CREATININE FOR GFR 1.06 MG/DL (0.55-1.30); GLOMERULAR FILTRATION RATE 55.6 (>45); MAGNESIUM LEVEL 2.1 MG/DL (1.8-2.4); PERCENT SATURATION 9.4 % (13.2-45.0); PHOSPHORUS LEVEL 3.4 MG/DL (2.5-4.9); POTASSIUM SERUM 4.4 MEQ/L (3.5-5.1); THYROID STIMULATING HORMONE 0.448 uIU/ML (0.358-3.740); TOTAL 25(OH) VITAMIN D 20.7 NG/ML (30.0-100.0); TOTAL PROTEIN 7.9 GM/DL (6.4-8.2)
== END ==
LOC: M PLALAB 11:08
PROVIDERS: ATTEND Family Medicine
DX: K90.9 Intestinal malabsorption, unspecified (principal); D64.9 Anemia, unspecified; Z79.899 Other long term (current) drug therapy

== ENCOUNTER → 2021-10-25 | Outpatient (CLI) | payer MEDICARE, MEDICAID ==
[~2021-10-25] MED LIST changes: +CALC500T52 PO; +PRAM0.754 PO; +VITATAB73 PO
[2021-10-25 17:44] LABS: HEMATOCRIT 36.8 % (36.0-47.0); HEMOGLOBIN 11.9 g/dl (12.0-15.5)
[2021-10-25 17:47] LABS: CALCIUM LEVEL 9.1 MG/DL (8.8-10.2); CREATININE FOR GFR 1.1 MG/DL (0.55-1.30); GLOMERULAR FILTRATION RATE 53.2 (>45); POTASSIUM SERUM 4.1 MEQ/L (3.5-5.1)
== END ==
LOC: M PLALAB 14:36
PROVIDERS: ATTEND Physician Assistant
DX: Z01.818 Encounter for other preprocedural examination (principal); M21.619 Bunion of unspecified foot

== ENCOUNTER → 2021-11-01 | Outpatient (CLI) | payer MEDICARE, MEDICAID | LOC: M LABSMTC 10:47 | PROVIDERS: ATTEND Anesthesiology | DX: Z01.818 Encounter for other preprocedural examination (principal); Z11.52 Encounter for screening for COVID-19 ==

== ENCOUNTER 2021-11-05 09:00 | Day surgery (SDC) | payer MEDICARE, MEDICAID ==
[~2021-11-05] VITALS: Ht 157.5 cm; Wt 104.7 kg
[~2021-11-05 09:00] MED LIST changes: +LR 1,000 ML IV ONE; +VANCOMYCIN HCL 750 MG, VIAL MATE ADAPTER 1 EACH in NS 250 ML IV ONE
[2021-11-05] MEDS ORDERED: VENL75CA47 (09:53)
[2021-11-05] MEDS ORDERED: ROPIvacaine 0.5% 30ML INJECTION (J2795 PER 1MG) As Ordered ONE (10:37)
[2021-11-05] MEDS ORDERED: dexameTHASONE 4 MG/ML 1ML VIAL (J1100 PER 1MG) As Ordered ONE ×2 (10:37→11:56)
[2021-11-05] MEDS ORDERED: GENTAMICIN SULF 80MG/2ML VIAL As Ordered ONE (10:51)
[2021-11-05] MEDS ORDERED: LIDOCAINE 2% 100MG/5ML SDV (FOR ANES.) As Ordered ONE (11:25)
[2021-11-05] MEDS ORDERED: fentaNYL 100 MCG/2 ML INJECTION As Ordered ONE ×2 (11:25→12:28)
[2021-11-05] MEDS ORDERED: MIDAZOLAM INJ 2MG/2ML VIAL (J2250 PER 1MG) As Ordered ONE (11:25)
[2021-11-05] MEDS ORDERED: GLYCOPYRROLATE INJ 0.2 MG/ML 2 ML VIAL As Ordered ONE (11:40)
[2021-11-05] MEDS ORDERED: ONDANSETRON 4MG/2ML VIAL As Ordered ONE ×2 (11:56→12:29)
[2021-11-05] MEDS ORDERED: ACETAMINOPHEN 1000MG 100ML IV BTL (OFIRMEV) (J0131 PER 10MG) As Ordered ONE (12:00)
[2021-11-05] MEDS ORDERED: KETOROLAC 60MG 2ML VIAL As Ordered ONE (12:05)
[2021-11-05] MEDS ORDERED: METOCLOPRAMIDE INJ 10MG/2ML VIAL (J2765 PER 1) As Ordered ONE (12:29)
[2021-11-05] MEDS: fentaNYL 100 MCG/2 ML INJECTION IV PRN ×4 (12:40→13:05)
[2021-11-05] MEDS ORDERED: LR 1,000 ML IV SCH (13:00)
[2021-11-05] MEDS ORDERED: ONDANSETRON 4MG/2ML VIAL IV PRN (13:00)
[2021-11-05] MEDS ORDERED: METOCLOPRAMIDE INJ 10MG/2ML VIAL (J2765 PER 1) IV PRN (13:00)
[2021-11-05] MEDS ORDERED: traMADol 50 MG TAB PO PRN ×2 (13:05→13:40)
[2021-11-05 15:00] VITALS: BP 110/58
== END 2021-11-05 15:12 | disposition home or self-care (01) ==
LOC: M SDC 09:00
PROVIDERS: ATTEND Podiatrist
DX: M20.12 Hallux valgus (acquired), left foot (principal); M20.5X2 Other deformities of toe(s) (acquired), left foot; B07.0 Plantar wart; K21.9 Gastro-esophageal reflux disease without esophagitis; E78.5 Hyperlipidemia, unspecified; G47.33 Obstructive sleep apnea (adult) (pediatric); E03.9 Hypothyroidism, unspecified; L93.0 Discoid lupus erythematosus; G25.81 Restless legs syndrome; G62.9 Polyneuropathy, unspecified; E66.9 Obesity, unspecified; Z98.84 Bariatric surgery status; F41.9 Anxiety disorder, unspecified; F32.A Depression, unspecified; F34.1 Dysthymic disorder; M54.50 Low back pain, unspecified; E87.2 Acidosis; R42 Dizziness and giddiness; Z99.89 Dependence on other enabling machines and devices; Z79.899 Other long term (current) drug therapy; Z79.891 Long term (current) use of opiate analgesic; Z87.891 Personal history of nicotine dependence; Z88.0 Allergy status to penicillin; Z88.5 Allergy status to narcotic agent; Z88.1 Allergy status to other antibiotic agents; Z88.8 Allergy status to other drugs, medicaments and biological substances; Z88.4 Allergy status to anesthetic agent
CPT/HCPCS: 28296; 73630; 76000; 88300; 97116; C1713; J0131; J1100; J1580; J1885; J2250; J2405; J2765; J2795; J3010; J3370

== ENCOUNTER → 2021-11-15 | Outpatient (REF) | payer MEDICARE, MEDICAID ==
[~2021-11-15] MED LIST changes: -LR 1,000 ML IV ONE; -VANCOMYCIN HCL 750 MG, VIAL MATE ADAPTER 1 EACH in NS 250 ML IV ONE; +VENL75CA47
== END ==
LOC: M LAB REF 10:20
PROVIDERS: ATTEND Podiatrist
DX: L03.119 Cellulitis of unspecified part of limb (principal); M79.672 Pain in left foot

== ENCOUNTER → 2022-01-21 | Outpatient (REF) | payer MEDICARE, MEDICAID ==
[2022-01-21 17:11] LABS: APPEARANCE, URINE CLEAR (CLEAR); BACTERIA, URINE AUTO NEGATIVE (NEGATIVE); BILIRUBIN, URINE AUTO NEGATIVE (NEGATIVE); BLOOD, URINE BLOOD NEGATIVE (NEGATIVE); COLOR, URINE STRAW (YELLOW); GLUCOSE, URINE (UA) AUTO NEGATIVE (NEGATIVE); KETONE, URINE AUTO NEGATIVE (NEGATIVE); LEUKOCYTE ESTERASE, URINE AUTO NEGATIVE (NEGATIVE); NITRITE, URINE AUTO NEGATIVE (NEGATIVE); PROTEIN, URINE AUTO NEGATIVE (NEGATIVE); RBC, URINE AUTO 0 /HPF (0-3); SPECIFIC GRAVITY URINE AUTO 1.009 (1.002-1.035); SQUAMOUS EPITHELIAL CELL UR AU 0 /HPF (0-6); UROBILINOGEN, URINE AUTO 0.2 mg/dL (0.0-2.0); WBC, URINE AUTO 0 /HPF (0-3)
[2022-01-21 17:15] LABS: BASO # 0.1 10^3/uL (0.0-0.2); EOS # 0.2 10^3/uL (0.0-0.5); EOS % 1.8 % (0.0-3.0); HEMATOCRIT 41.6 % (36.0-47.0); HEMOGLOBIN 13.1 g/dl (12.0-15.5); LYMPH # 3.3 10^3/uL (1.5-5.0); LYMPH % 31.5 % (24.0-44.0); MEAN CORPUSCULAR HEMOGLOBIN 26.4 pg (27.0-33.0); MEAN CORPUSCULAR HGB CONC 31.5 g/dl (32.0-36.5); MEAN CORPUSCULAR VOLUME 83.9 fl (80.0-96.0); MONO # 0.7 10^3/uL (0.0-0.8); MONO % 6.4 % (2.0-8.0); NEUTROPHILS % 58.2 % (36.0-66.0); PLATELET COUNT, AUTOMATED 402 10^3/uL (150-450); RED BLOOD COUNT 4.96 10^6/uL (4.00-5.40); WHITE BLOOD COUNT 10.4 10^3/uL (4.0-10.0)
[2022-01-21 18:11] LABS: CREATININE,RANDOM URINE 41.2 MG/DL; TOTAL PROTEIN,RANDOM URINE 5.9 MG/DL (0.0-12.0)
[2022-01-21 18:22] LABS: ALBUMIN 3.9 GM/DL (3.2-5.2); BILIRUBIN,TOTAL 0.3 MG/DL (0.2-1.0); C REACTIVE PROTEIN QUANTITATIV 1.35 MG/DL (0.00-0.30); CALCIUM LEVEL 9.5 MG/DL (8.8-10.2); CREATININE FOR GFR 1.03 MG/DL (0.55-1.30); GLOMERULAR FILTRATION RATE 57.4 (>45); POTASSIUM SERUM 3.9 MEQ/L (3.5-5.1); TOTAL PROTEIN 8.3 GM/DL (6.4-8.2)
[2022-01-21 18:23] LABS: ERYTHROCYTE SEDIMENTATION RATE 41 mm/hr (0-30)
== END ==
LOC: M SFHCRHEU 13:04
PROVIDERS: ATTEND Internal Medicine Rheumatology
DX: L93.0 Discoid lupus erythematosus (principal); R76.8 Other specified abnormal immunological findings in serum; M35.3 Polymyalgia rheumatica; M35.00 Sjogren syndrome, unspecified

== ENCOUNTER → 2022-02-14 | Outpatient (CLI) | payer MEDICARE, MEDICAID | LOC: M RAD 07:56 | PROVIDERS: ATTEND Internal Medicine Rheumatology | DX: L93.0 Discoid lupus erythematosus (principal) ==

== ENCOUNTER → 2022-02-14 | Outpatient (CLI) | payer MEDICARE, MEDICAID ==
[2022-02-14 10:19] LABS: CHOLESTEROL RISK RATIO 2.982 (<5); FREE T4 1.03 NG/DL (0.76-1.46); THYROID STIMULATING HORMONE 2.55 uIU/ML (0.358-3.740)
[2022-02-14 10:43] LABS: TOTAL 25(OH) VITAMIN D 24.2 NG/ML (30.0-100.0)
== END ==
LOC: M LAB 07:53 → M PLALAB 07:53
PROVIDERS: ATTEND Nurse Practitioner Family
DX: E78.2 Mixed hyperlipidemia (principal); E03.9 Hypothyroidism, unspecified; E55.9 Vitamin D deficiency, unspecified

== ENCOUNTER → 2022-04-08 | Outpatient (CLI) | payer MEDICARE, MEDICAID | LOC: M WHC 11:41 | PROVIDERS: ATTEND Nurse Practitioner Family | DX: Z13.820 Encounter for screening for osteoporosis (principal); M81.0 Age-related osteoporosis without current pathological fracture ==

== ENCOUNTER → 2022-04-08 | Outpatient (CLI) | payer MEDICARE, MEDICAID | LOC: M WHC 10:36 | PROVIDERS: ATTEND Nurse Practitioner Family | DX: Z12.31 Encounter for screening mammogram for malignant neoplasm of breast (principal) ==

== ENCOUNTER → 2022-04-08 | Outpatient (REF) | payer MEDICARE, MEDICAID | LOC: M SFHCWAGY 09:53 | PROVIDERS: ATTEND Nurse Practitioner Family | DX: Z12.4 Encounter for screening for malignant neoplasm of cervix (principal); Z01.419 Encounter for gynecological examination (general) (routine) without abnormal findings; Z77.9 Other contact with and (suspected) exposures hazardous to health | CPT/HCPCS: 87624; G0123 ==

== ENCOUNTER → 2022-10-03 | Outpatient (CLI) | payer MEDICARE, MEDICAID ==
[2022-10-03 12:26] LABS: BASO # 0.1 10^3/uL (0.0-0.2); EOS # 0.2 10^3/uL (0.0-0.5); EOS % 2.3 % (0.0-3.0); HEMATOCRIT 37.5 % (36.0-47.0); HEMOGLOBIN 11.6 g/dl (12.0-15.5); LYMPH # 2.9 10^3/uL (1.5-5.0); MEAN CORPUSCULAR HEMOGLOBIN 25.9 pg (27.0-33.0); MEAN CORPUSCULAR HGB CONC 30.9 g/dl (32.0-36.5); MEAN CORPUSCULAR VOLUME 83.7 fl (80.0-96.0); MONO # 0.9 10^3/uL (0.0-0.8); MONO % 9.3 % (2.0-8.0); NEUTROPHILS # 5.5 10^3/uL (1.5-8.5); NEUTROPHILS % 55.9 % (36.0-66.0); PLATELET COUNT, AUTOMATED 479 10^3/uL (150-450); RED BLOOD COUNT 4.48 10^6/uL (4.00-5.40); WHITE BLOOD COUNT 9.8 10^3/uL (4.0-10.0)
[2022-10-03 13:11] LABS: IRON (FE) 36 UG/DL (50-170)
[2022-10-03 13:59] LABS: HEMOGLOBIN A1c 5.8 % (4.0-6.0)
[2022-10-03 14:43] LABS: ALBUMIN 3.4 G/DL (3.2-5.2); ALKALINE PHOSPHATASE 116 U/L (46-116); ALT/SGPT 14 U/L (7.0-40); AST/SGOT 16 U/L (<34); BILIRUBIN,TOTAL 0.2 MG/DL (0.3-1.2); BLOOD UREA NITROGEN 18 MG/DL (9-23); CALCIUM LEVEL 8.7 MG/DL (8.3-10.6); CARBON DIOXIDE LEVEL 27 MMOL/L (20-31); CHLORIDE LEVEL 106 MMOL/L (98-107); CHOLESTEROL LEVEL 179 MG/DL (<200); CHOLESTEROL RISK RATIO 3.54 (<5); CREATININE FOR GFR 0.94 MG/DL (0.55-1.30); FERRITIN 7.7 NG/ML (7.3-270.7); GLOMERULAR FILTRATION RATE > 60.0 (>45); GLUCOSE, FASTING 85 MG/DL (74-106); HDL CHOLESTEROL 50.5 MG/DL (>40); NON-HDL-C 128.5 MG/DL; POTASSIUM SERUM 4.6 MMOL/L (3.5-5.1); SODIUM LEVEL 135 MMOL/L (136-145); TOTAL 25(OH) VITAMIN D 23.5 NG/ML (20.0-100.0); VITAMIN B12 LEVEL 363 PG/ML (211-911)
[2022-10-03 15:13] LABS: THYROID STIMULATING HORMONE 3.869 uIU/ML (0.55-4.78)
[2022-10-03 18:51] LABS: LDL CHOLESTEROL 93.1 MG/DL (<100); TOTAL PROTEIN 7.3 G/DL (5.7-8.2); TRIGLYCERIDES LEVEL 177 MG/DL (<150)
== END ==
LOC: M PLALAB 08:19
PROVIDERS: ATTEND Nurse Practitioner Family
DX: E78.2 Mixed hyperlipidemia (principal); E03.9 Hypothyroidism, unspecified; E55.9 Vitamin D deficiency, unspecified; E53.8 Deficiency of other specified B group vitamins; Z98.84 Bariatric surgery status; Z79.899 Other long term (current) drug therapy

== ENCOUNTER → 2022-12-16 | Outpatient (CLI) | payer MEDICARE, MEDICAID ==
[~2022-12-16] MED LIST changes: +FLUT50SP17; -FLUTISP
[2022-12-16 15:54] LABS: BASO # 0.1 10^3/uL (0.0-0.2); BASO % 0.9 % (0.0-1.0); EOS # 0.3 10^3/uL (0.0-0.5); EOS % 2.8 % (0.0-3.0); HEMATOCRIT 40.3 % (36.0-47.0); HEMOGLOBIN 12.5 g/dl (12.0-15.5); LYMPH # 3.6 10^3/uL (1.5-5.0); LYMPH % 36.2 % (24.0-44.0); MEAN CORPUSCULAR HEMOGLOBIN 25.5 pg (27.0-33.0); MEAN CORPUSCULAR VOLUME 82.1 fl (80.0-96.0); MONO # 0.9 10^3/uL (0.0-0.8); MONO % 9.4 % (2.0-8.0); NEUTROPHILS # 4.9 10^3/uL (1.5-8.5); NEUTROPHILS % 49.6 % (36.0-66.0); PLATELET COUNT, AUTOMATED 444 10^3/uL (150-450); RED BLOOD COUNT 4.91 10^6/uL (4.00-5.40)
[2022-12-16 15:56] LABS: ALBUMIN 3.6 G/DL (3.2-5.2); BILIRUBIN,TOTAL 0.3 MG/DL (0.3-1.2); CALCIUM LEVEL 9.7 MG/DL (8.3-10.6); CREATININE FOR GFR 1.03 MG/DL (0.55-1.30); GLOMERULAR FILTRATION RATE 57.3 (>45); POTASSIUM SERUM 4.2 MMOL/L (3.5-5.1); TOTAL PROTEIN 7.5 G/DL (5.7-8.2)
== END ==
LOC: M PLAIMG 13:29
PROVIDERS: ATTEND Nurse Practitioner Family
DX: R10.9 Unspecified abdominal pain (principal)

== ENCOUNTER → 2022-12-28 | Outpatient (CLI) | payer MEDICARE, MEDICAID ==
[~2022-12-28] MED LIST changes: +GASTROGRAFIN SOLUTION 30ML As Ordered ONE; +ISOVUE-370 76% 100ML VIAL As Ordered ONE
== END ==
LOC: M RAD 09:23
PROVIDERS: ATTEND Nurse Practitioner Family
DX: K43.9 Ventral hernia without obstruction or gangrene (principal)
CPT/HCPCS: 74160; Q9963; Q9967

== ENCOUNTER 2023-03-04 22:00 | Emergency (ER) | payer MEDICARE, MEDICAID ==
[~2023-03-04] VITALS: Ht 157.5 cm; Wt 110.2 kg
[~2023-03-04 22:00] MED LIST changes: -GASTROGRAFIN SOLUTION 30ML As Ordered ONE; -ISOVUE-370 76% 100ML VIAL As Ordered ONE
[2023-03-05] MEDS ORDERED: BACLOFEN 10 MG TAB PO ONE (06:35)
[2023-03-05] MEDS ORDERED: predniSONE 20 MG TAB PO ONE (06:35)
[2023-03-05] MEDS ORDERED: ALBUTEROL SULFATE 2.5MG/0.5ML INH NEB SOLN NEB ONE (06:35)
[2023-03-05] MEDS ORDERED: BENZONATATE 100MG CAPSULE PO ONE (06:35)
[2023-03-05] MEDS ORDERED: DOXY100C3 PO (07:53)
[2023-03-05] MEDS ORDERED: BENZ200C70 PO (07:53)
[2023-03-05 08:11] VITALS: BP 165/78; TEMP 96.7; O2SAT 97
== END 2023-03-05 08:16 | disposition home or self-care (01) ==
LOC: M ED 22:00
DX: J20.9 Acute bronchitis, unspecified (principal); M32.9 Systemic lupus erythematosus, unspecified; E03.9 Hypothyroidism, unspecified; F41.9 Anxiety disorder, unspecified; M19.90 Unspecified osteoarthritis, unspecified site; Z79.899 Other long term (current) drug therapy; Z88.0 Allergy status to penicillin; Z88.5 Allergy status to narcotic agent; Z88.3 Allergy status to other anti-infective agents; Z88.8 Allergy status to other drugs, medicaments and biological substances
CPT/HCPCS: 71046; 87486; 87581; 87633; 87798; 94640; 99283; J7512

== ENCOUNTER → 2023-04-19 | Outpatient (CLI) | payer MEDICARE, MEDICAID ==
[~2023-04-19] MED LIST changes: +BENZ200C70 PO; +DOXY100C3 PO
[2023-04-19 14:46] LABS: BASO # 0.1 10^3/uL (0.0-0.2); BASO % 0.8 % (0.0-1.0); EOS # 0.3 10^3/uL (0.0-0.5); HEMATOCRIT 34.6 % (36.0-47.0); HEMOGLOBIN 10.7 g/dl (12.0-15.5); LYMPH # 2.6 10^3/uL (1.5-5.0); LYMPH % 30.1 % (24.0-44.0); MEAN CORPUSCULAR HEMOGLOBIN 25.4 pg (27.0-33.0); MEAN CORPUSCULAR HGB CONC 30.9 g/dl (32.0-36.5); MONO # 0.9 10^3/uL (0.0-0.8); MONO % 10.4 % (2.0-8.0); NEUTROPHILS # 4.8 10^3/uL (1.5-8.5); NEUTROPHILS % 55.1 % (36.0-66.0); PLATELET COUNT, AUTOMATED 455 10^3/uL (150-450); RED BLOOD COUNT 4.22 10^6/uL (4.00-5.40); WHITE BLOOD COUNT 8.7 10^3/uL (4.0-10.0)
[2023-04-19 15:18] LABS: ALBUMIN 3.5 G/DL (3.2-5.2); BILIRUBIN,TOTAL 0.2 MG/DL (0.3-1.2); CALCIUM LEVEL 8.9 MG/DL (8.3-10.6); CREATININE FOR GFR 1.01 MG/DL (0.55-1.30); GLOMERULAR FILTRATION RATE 58.4 (>45); POTASSIUM SERUM 3.9 MMOL/L (3.5-5.1)
== END ==
LOC: M PLALAB 11:03
PROVIDERS: ATTEND Nurse Practitioner Family
DX: R06.02 Shortness of breath (principal)

== ENCOUNTER → 2023-05-08 | Outpatient (CLI) | payer MEDICARE, MEDICAID ==
[~2023-05-08] MED LIST changes: +ISOVUE-370 76% 100ML VIAL As Ordered ONE
== END ==
LOC: M RAD 05-01 08:59
PROVIDERS: ATTEND Nurse Practitioner Family
DX: R06.02 Shortness of breath (principal)
CPT/HCPCS: 71260; Q9967

== ENCOUNTER 2023-05-11 15:25 | Emergency (ER) | payer MEDICARE, MEDICAID ==
[~2023-05-11] VITALS: Ht 157.5 cm; Wt 108.1 kg
[~2023-05-11 15:25] MED LIST changes: -ISOVUE-370 76% 100ML VIAL As Ordered ONE
[2023-05-11] MEDS ORDERED: dexAMETHasone 4 MG TAB PO ONE (19:20)
[2023-05-11] MEDS ORDERED: LEVO750T14 PO (20:13)
[2023-05-11] MEDS ORDERED: PRED20TA PO (20:13)
[2023-05-11 20:59] VITALS: BP 169/77; TEMP 97.7; O2SAT 98
[2023-05-12] MEDS ORDERED: PROM25TA12 PO (22:30)
[2023-05-12] MEDS ORDERED: DOXY-443 PO (22:56)
== END 2023-05-11 21:01 | disposition home or self-care (01) ==
LOC: M ED 15:25
DX: J18.9 Pneumonia, unspecified organism (principal); M62.830 Muscle spasm of back; E66.9 Obesity, unspecified; E03.9 Hypothyroidism, unspecified; F41.9 Anxiety disorder, unspecified; F32.A Depression, unspecified; Z79.899 Other long term (current) drug therapy; Z88.0 Allergy status to penicillin; Z88.5 Allergy status to narcotic agent; Z88.1 Allergy status to other antibiotic agents; Z88.3 Allergy status to other anti-infective agents; Z88.8 Allergy status to other drugs, medicaments and biological substances

== ENCOUNTER 2023-05-12 17:56 | Emergency (ER) | payer MEDICARE, MEDICAID ==
[~2023-05-12] VITALS: Ht 157.5 cm; Wt 109.1 kg
[~2023-05-12 17:56] MED LIST changes: +LEVO750T14 PO; -VENL75CA47; +VENL75CA47 PO
[2023-05-12] MEDS ORDERED: NS 1,000 ML IV ONE (18:20)
[2023-05-12] MEDS ORDERED: METOCLOPRAMIDE INJ 10MG/2ML VIAL IV ONE (18:20)
[2023-05-12 18:43] LABS: BASO % 0.2 % (0.0-1.0); HEMATOCRIT 38.2 % (36.0-47.0); LYMPH # 1.2 10^3/uL (1.5-5.0); LYMPH % 7.8 % (24.0-44.0); MEAN CORPUSCULAR HEMOGLOBIN 24.8 pg (27.0-33.0); MEAN CORPUSCULAR HGB CONC 31.4 g/dl (32.0-36.5); MEAN CORPUSCULAR VOLUME 79.1 fl (80.0-96.0); MONO # 0.3 10^3/uL (0.0-0.8); MONO % 2.1 % (2.0-8.0); NEUTROPHILS # 13.6 10^3/uL (1.5-8.5); NEUTROPHILS % 88.3 % (36.0-66.0); PLATELET COUNT, AUTOMATED 473 10^3/uL (150-450); RED BLOOD COUNT 4.83 10^6/uL (4.00-5.40); WHITE BLOOD COUNT 15.4 10^3/uL (4.0-10.0)
[2023-05-12 19:02] LABS: LIPASE 33 U/L (12-53)
[2023-05-12 19:04] LABS: ALBUMIN 3.5 G/DL (3.2-5.2); ALKALINE PHOSPHATASE 110 U/L (46-116); ALT/SGPT 23 U/L (7.0-40); AST/SGOT 23 U/L (<34); BILIRUBIN,DIRECT < 0.1 MG/DL (<0.4); BILIRUBIN,TOTAL 0.3 MG/DL (0.3-1.2); BLOOD UREA NITROGEN 20 MG/DL (9-23); CALCIUM LEVEL 8.9 MG/DL (8.3-10.6); CARBON DIOXIDE LEVEL 25 MMOL/L (20-31); CHLORIDE LEVEL 102 MMOL/L (98-107); CREATININE FOR GFR 0.71 MG/DL (0.55-1.30); GLOMERULAR FILTRATION RATE > 60.0 (>45); GLUCOSE, FASTING 145 MG/DL (74-106); POTASSIUM SERUM 5.1 MMOL/L (3.5-5.1); SODIUM LEVEL 138 MMOL/L (136-145); TOTAL PROTEIN 7.5 G/DL (5.7-8.2)
[2023-05-12] MEDS ORDERED: PROMETHAZINE 25MG/ML 1ML VIAL IV ONE (19:15)
[2023-05-12] MEDS ORDERED: HALOPERIDOL 5MG/ML 1ML VIAL IV ONE (20:10)
[2023-05-12 20:30] VITALS: BP 157/70
[2023-05-12 20:41] VITALS: TEMP 98.7; O2SAT 97
[2023-05-12] MEDS ORDERED: PRAMIPEXOLE 0.25 MG TAB PO STA (20:46)
[2023-05-12] MEDS ORDERED: PROM25TA12 PO (22:30)
[2023-05-12] MEDS ORDERED: DOXYCYCLINE HYCLATE 100MG TABLET PO ONE (22:50)
[2023-05-12] MEDS ORDERED: traMADol 50 MG TAB PO ONE (22:50)
[2023-05-12] MEDS ORDERED: DOXY-443 PO (22:56)
== END 2023-05-12 23:15 | disposition home or self-care (01) ==
LOC: M ED 17:56 → EDBD 17:56 → M ED 23:15
DX: T36.8X5A Adverse effect of other systemic antibiotics, initial encounter (principal); K42.9 Umbilical hernia without obstruction or gangrene; J18.9 Pneumonia, unspecified organism; F32.A Depression, unspecified; F41.9 Anxiety disorder, unspecified; Z98.84 Bariatric surgery status; Z87.891 Personal history of nicotine dependence; Z79.899 Other long term (current) drug therapy; Z88.0 Allergy status to penicillin; Z88.5 Allergy status to narcotic agent; Z88.1 Allergy status to other antibiotic agents; Z88.3 Allergy status to other anti-infective agents; Z88.8 Allergy status to other drugs, medicaments and biological substances

== ENCOUNTER 2023-05-15 08:37 | Inpatient (IN) | payer MEDICARE, MEDICAID ==
[~2023-05-15] VITALS: Ht 157.5 cm; Wt 105.6 kg
[~2023-05-15 08:37] MED LIST changes: +PROM25TA12 PO
[2023-05-15 10:20] LABS: BASO # 0.1 10^3/uL (0.0-0.2); BASO % 0.2 % (0.0-1.0); EOS # 0.1 10^3/uL (0.0-0.5); EOS % 0.5 % (0.0-3.0); HEMATOCRIT 44.6 % (36.0-47.0); HEMOGLOBIN 14.1 g/dl (12.0-15.5); LYMPH # 2.4 10^3/uL (1.5-5.0); LYMPH % 11.8 % (24.0-44.0); MEAN CORPUSCULAR HEMOGLOBIN 25.1 pg (27.0-33.0); MEAN CORPUSCULAR HGB CONC 31.6 g/dl (32.0-36.5); MEAN CORPUSCULAR VOLUME 79.4 fl (80.0-96.0); MONO % 11.4 % (2.0-8.0); NEUTROPHILS # 14.9 10^3/uL (1.5-8.5); NEUTROPHILS % 74.4 % (36.0-66.0); PLATELET COUNT, AUTOMATED 529 10^3/uL (150-450); RED BLOOD COUNT 5.62 10^6/uL (4.00-5.40)
[2023-05-15 10:34] LABS: MONO # 2.3 10^3/uL (0.0-0.8)
[2023-05-15 10:50] LABS: LIPASE 39 U/L (12-53)
[2023-05-15 10:53] LABS: ALBUMIN 3.3 G/DL (3.2-5.2); ALKALINE PHOSPHATASE 114 U/L (46-116); ALT/SGPT 51 U/L (7.0-40); AST/SGOT 37 U/L (<34); BILIRUBIN,DIRECT 0.7 MG/DL (<0.4); BILIRUBIN,TOTAL 1.3 MG/DL (0.3-1.2); BLOOD UREA NITROGEN 22 MG/DL (9-23); CALCIUM LEVEL 9.4 MG/DL (8.3-10.6); CARBON DIOXIDE LEVEL 29 MMOL/L (20-31); CHLORIDE LEVEL 101 MMOL/L (98-107); CREATININE FOR GFR 1.11 MG/DL (0.55-1.30); GLOMERULAR FILTRATION RATE 52.4 (>45); GLUCOSE, FASTING 143 MG/DL (74-106); SODIUM LEVEL 141 MMOL/L (136-145); TOTAL PROTEIN 7.3 G/DL (5.7-8.2)
[2023-05-15 10:56] LABS: RSV AMPLIFICATION NEGATIVE (NEGATIVE)
[2023-05-15] MEDS ORDERED: NS 1,000 ML IV ONE (11:30)
[2023-05-15] MEDS ORDERED: PROMETHAZINE 25MG/ML 1ML VIAL IV ONE (11:30)
[2023-05-15] MEDS ORDERED: ACETAMINOPHEN *IV* 1,000 MG in IV 1 EA IV ONE (11:30)
[2023-05-15 12:11] LABS: ERYTHROCYTE SEDIMENTATION RATE 73 mm/hr (0-30)
[2023-05-15] MEDS ORDERED: diphenhydrAMINE 50MG/ML VIAL IV STA (12:12)
[2023-05-15] MEDS ORDERED: methylPREDNISolone 125MG 2ML VIAL IV ONE (12:15)
[2023-05-15] MEDS ORDERED: ISOVUE-370 76% 100ML VIAL As Ordered ONE (12:51)
[2023-05-15] MEDS ORDERED: PRAMIPEXOLE 0.25 MG TAB PO STA (13:33)
[2023-05-15] MEDS ORDERED: NS 2,000 ML in IV 1 EA IV ONE (13:40)
[2023-05-15] MEDS ORDERED: MED REC IN PROGRESS XX SCH (14:00)
[2023-05-15] MEDS ORDERED: methocarbamoL 750 MG TAB PO ONE (14:25)
[2023-05-15] MEDS ORDERED: HYDROMORPHONE HCL 0.5 MG/ 0.5 ML SYRINGE IV ONE (14:40)
[2023-05-15] MEDS ORDERED: HEPARIN SOD (PORCINE) 5000UNITS/ML 1ML VIAL/SYRINGE SQ ONE (15:25)
[2023-05-15] MEDS ORDERED: MECL-86 PO (16:09)
[2023-05-15] MEDS ORDERED: FLUT12AE6 INH (16:09)
[2023-05-15] MEDS ORDERED: DULO1CAP5 PO (16:09)
[2023-05-15] MEDS ORDERED: PRAM1TAB7 PO (16:09)
[2023-05-15] MEDS ORDERED: CYAN1000VL IM (16:09)
[2023-05-15] MEDS ORDERED: FERR32TA PO (16:09)
[2023-05-15] MEDS ORDERED: ALBU8.5H PO (16:09)
[2023-05-15] MEDS ORDERED: PROM25TA12 PO (16:28)
[2023-05-15] MEDS ORDERED: TRAM50TA2 PO (16:30)
[2023-05-15] MEDS ORDERED: HOME MED LIST COMPLETE! XX SCH (16:30)
[2023-05-15] MEDS ORDERED: MORPHINE 4 MG/ML 1ML VIAL IV PRN (16:40)
[2023-05-15] MEDS ORDERED: ALBUTEROL SULFATE 2.5MG/0.5ML INH NEB SOLN NEB PRN (16:50)
[2023-05-15] MEDS ORDERED: PANTOPRAZOLE 40MG VIAL IV SCH (17:00)
[2023-05-15] MEDS ORDERED: CLINDAMYCIN 900 MG in IV 1 EA IV ONE (17:00)
[2023-05-15] MEDS ORDERED: SCOPOLAMINE 1MG TRANSDERMAL PATCH As Ordered ONE (17:09)
[2023-05-15] MEDS ORDERED: dexmedeTOMIDine (4MCG/ML)200MCG/50ML BTL (PRECEDEX) As Ordered ONE (17:28)
[2023-05-15] MEDS ORDERED: fentaNYL 250 MCG/5 ML INJECTION As Ordered ONE (17:28)
[2023-05-15] MEDS ORDERED: propofoL 200 MG/20 ML VIAL As Ordered ONE (17:28)
[2023-05-15] MEDS ORDERED: SUGAMMADEX SODIUM 500 MG/5 ML VIAL (BRIDION) As Ordered ONE (17:28)
[2023-05-15] MEDS ORDERED: ONDANSETRON 4MG 2ML VIAL As Ordered ONE (17:28)
[2023-05-15] MEDS ORDERED: MIDAZOLAM INJ 2MG/2ML VIAL As Ordered ONE (17:28)
[2023-05-15] MEDS ORDERED: ROCURONIUM BROMIDE 50MG/5ML VIAL As Ordered ONE ×2 (17:28→18:18)
[2023-05-15] MEDS ORDERED: LIDOCAINE 2% 100MG/5ML SDV (FOR ANES.) As Ordered ONE (17:28)
[2023-05-15] MEDS ORDERED: metroNIDAZOLE/NACL 500MG(5MG/ML) 100ML BAG As Ordered ONE (17:44)
[2023-05-15] MEDS ORDERED: HEPARIN SOD (PORCINE) 5000UNITS/ML 1ML VIAL/SYRINGE As Ordered ONE (17:44)
[2023-05-15] MEDS ORDERED: CLINDAMYCIN 900MG/50ML PREMIX BAG As Ordered ONE (17:44)
[2023-05-15] MEDS ORDERED: ePHEDrine SULFATE 25 MG/5 ML(5MG/ML) SYRINGE As Ordered ONE (17:50)
[2023-05-15] MEDS ORDERED: metroNIDAZOLE 500 MG in IV 1 EA IV ONE (18:00)
[2023-05-15] MEDS ORDERED: ACETAMINOPHEN 1000MG 100ML IV BAG As Ordered ONE (18:12)
[2023-05-15] MEDS ORDERED: INDOCYANINE GREEN 25MG VIAL (IC-GREEN) As Ordered ONE (18:20)
[2023-05-15 18:30] LABS: PROCALCITONIN <0.04 ng/ml
[2023-05-15] MEDS ORDERED: KETOROLAC 60MG 2ML VIAL As Ordered ONE (19:18)
[2023-05-15] MEDS ORDERED: ONDANSETRON 4MG 2ML VIAL IV PRN (19:45)
[2023-05-15] MEDS ORDERED: PROMETHAZINE 25MG/ML 1ML VIAL IV PRN (19:45)
[2023-05-15] MEDS ORDERED: LR 1,000 ML IV SCH (19:45)
[2023-05-15] MEDS ORDERED: fentaNYL 100 MCG/2 ML INJECTION IV PRN (19:45)
[2023-05-15] MEDS: SYMBICORT 160/4.5MCG INHALER 6GM INH SCH (20:00)
[2023-05-15] MEDS: HYDROMORPHONE HCL 0.5 MG/ 0.5 ML SYRINGE IV PRN ×2 (20:14→20:22)
[2023-05-15 21:35] VITALS: BP 116/62; TEMP 97.7; O2SAT 94
[2023-05-15] MEDS: D5W/0.9% SODIUM CHLORIDE 1,000 ML IV SCH (22:54)
[2023-05-16 01:00] VITALS: BP 114/61; TEMP 97.9; O2SAT 92
[2023-05-16 02:00] VITALS: BP 113/61; TEMP 98.1; O2SAT 92
[2023-05-16] MEDS: metroNIDAZOLE 500 MG in IV 1 EA IV SCH ×3 (02:40→18:43)
[2023-05-16 03:00] VITALS: BP 114/61; TEMP 98.1; O2SAT 78
[2023-05-16 06:00] VITALS: BP 116/62; TEMP 97.9; O2SAT 92
[2023-05-16 06:43] LABS: BASO % 0.1 % (0.0-1.0); HEMATOCRIT 33.8 % (36.0-47.0); LYMPH % 5.6 % (24.0-44.0); MEAN CORPUSCULAR HEMOGLOBIN 25.2 pg (27.0-33.0); MONO # 0.9 10^3/uL (0.0-0.8); NEUTROPHILS % 88.2 % (36.0-66.0); RED BLOOD COUNT 4.28 10^6/uL (4.00-5.40)
[2023-05-16 06:46] LABS: HEMOGLOBIN 10.8 g/dl (12.0-15.5); PLATELET COUNT, AUTOMATED 388 10^3/uL (150-450)
[2023-05-16 06:53] LABS: BLOOD UREA NITROGEN 17 MG/DL (9-23); CALCIUM LEVEL 7.5 MG/DL (8.3-10.6); CARBON DIOXIDE LEVEL 25 MMOL/L (20-31); CHLORIDE LEVEL 105 MMOL/L (98-107); CREATININE FOR GFR 0.81 MG/DL (0.55-1.30); GLOMERULAR FILTRATION RATE > 60.0 (>45); GLUCOSE, FASTING 178 MG/DL (74-106); SODIUM LEVEL 138 MMOL/L (136-145)
[2023-05-16] MEDS: SYMBICORT 160/4.5MCG INHALER 6GM INH SCH ×2 (09:21→21:00)
[2023-05-16] MEDS: D5W/0.9% SODIUM CHLORIDE 1,000 ML IV SCH ×4 (09:30→15:20)
[2023-05-16] MEDS: cefTRIAXone SOD 2 GM in D5W MINI-BAG PLUS 50 ML IV SCH (09:30)
[2023-05-16 14:00] VITALS: BP 133/64; TEMP 97.9; O2SAT 98
[2023-05-16] MEDS: ONDANSETRON 4MG 2ML VIAL IV PRN (15:19)
[2023-05-16] MEDS: PANTOPRAZOLE 40MG VIAL IV SCH (15:19)
[2023-05-16] MEDS: KETOROLAC 30 MG/ML 1ML VIAL IV SCH ×2 (15:20→20:30)
[2023-05-16 21:34] VITALS: BP 157/72; TEMP 97.9; O2SAT 97
[2023-05-17 01:24] VITALS: BP 121/76; TEMP 96.8; O2SAT 94
[2023-05-17] MEDS: metroNIDAZOLE 500 MG in IV 1 EA IV SCH ×3 (01:56→17:15)
[2023-05-17] MEDS: KETOROLAC 30 MG/ML 1ML VIAL IV SCH ×4 (01:56→20:00)
[2023-05-17] MEDS: D5W/0.9% SODIUM CHLORIDE 1,000 ML IV SCH ×2 (01:57→09:04)
[2023-05-17] MEDS: PANTOPRAZOLE 40MG VIAL IV SCH ×2 (05:03→17:12)
[2023-05-17 05:44] VITALS: BP 124/66; TEMP 97.6; O2SAT 94
[2023-05-17 05:49] LABS: BASO % 0.1 % (0.0-1.0); HEMATOCRIT 35.9 % (36.0-47.0); HEMOGLOBIN 10.9 g/dl (12.0-15.5); LYMPH # 2.2 10^3/uL (1.5-5.0); LYMPH % 11.2 % (24.0-44.0); MEAN CORPUSCULAR HEMOGLOBIN 24.7 pg (27.0-33.0); MEAN CORPUSCULAR HGB CONC 30.4 g/dl (32.0-36.5); MEAN CORPUSCULAR VOLUME 81.4 fl (80.0-96.0); MONO # 1.5 10^3/uL (0.0-0.8); MONO % 7.5 % (2.0-8.0); NEUTROPHILS % 79.9 % (36.0-66.0); PLATELET COUNT, AUTOMATED 430 10^3/uL (150-450); RED BLOOD COUNT 4.41 10^6/uL (4.00-5.40); WHITE BLOOD COUNT 20.1 10^3/uL (4.0-10.0)
[2023-05-17 06:09] LABS: BLOOD UREA NITROGEN 17 MG/DL (9-23); CALCIUM LEVEL 8.2 MG/DL (8.3-10.6); CARBON DIOXIDE LEVEL 24 MMOL/L (20-31); CHLORIDE LEVEL 107 MMOL/L (98-107); CREATININE FOR GFR 0.83 MG/DL (0.55-1.30); GLOMERULAR FILTRATION RATE > 60.0 (>45); GLUCOSE, FASTING 122 MG/DL (74-106); POTASSIUM SERUM 3.7 MMOL/L (3.5-5.1); SODIUM LEVEL 142 MMOL/L (136-145)
[2023-05-17] MEDS: cefTRIAXone SOD 2 GM in D5W MINI-BAG PLUS 50 ML IV SCH (09:02)
[2023-05-17] MEDS: ANALGESIC BALM CRM 3OZ TOP SCH ×2 (09:05→20:29)
[2023-05-17 09:06] VITALS: O2SAT 95
[2023-05-17] MEDS: SYMBICORT 160/4.5MCG INHALER 6GM INH SCH ×2 (09:06→20:41)
[2023-05-17 10:00] VITALS: BP 142/76; TEMP 96.8; O2SAT 96
[2023-05-17 14:00] VITALS: BP 127/64; TEMP 98.2; O2SAT 95
[2023-05-17] MEDS: ONDANSETRON 4MG 2ML VIAL IV PRN ×2 (17:12→23:34)
[2023-05-17] MEDS ORDERED: DULoxetine 30MG CAPSULE (CYMBALTA) PO SCH (18:00)
[2023-05-17 20:00] VITALS: BP 125/64; TEMP 97.7; O2SAT 92
[2023-05-17] MEDS: BACLOFEN 10 MG TAB PO SCH (20:27)
[2023-05-17] MEDS: PRAMIPEXOLE 1 MG TAB PO SCH (20:27)
[2023-05-18] MEDS: metroNIDAZOLE 500 MG in IV 1 EA IV SCH ×3 (02:41→17:52)
[2023-05-18] MEDS: KETOROLAC 30 MG/ML 1ML VIAL IV SCH ×4 (02:42→22:08)
[2023-05-18] MEDS: LEVOTHYROXINE 112MCG TABLET (0.112MG) PO SCH (05:36)
[2023-05-18] MEDS: PANTOPRAZOLE 40MG VIAL IV SCH ×2 (05:36→17:51)
[2023-05-18 06:11] LABS: BASO % 0.1 % (0.0-1.0); EOS # 0.2 10^3/uL (0.0-0.5); EOS % 1.3 % (0.0-3.0); HEMATOCRIT 34.4 % (36.0-47.0); LYMPH # 2.4 10^3/uL (1.5-5.0); LYMPH % 17.6 % (24.0-44.0); MEAN CORPUSCULAR HEMOGLOBIN 25.1 pg (27.0-33.0); MEAN CORPUSCULAR VOLUME 78.4 fl (80.0-96.0); MONO # 1.2 10^3/uL (0.0-0.8); MONO % 8.8 % (2.0-8.0); NEUTROPHILS # 9.6 10^3/uL (1.5-8.5); NEUTROPHILS % 70.9 % (36.0-66.0); PLATELET COUNT, AUTOMATED 406 10^3/uL (150-450); RED BLOOD COUNT 4.39 10^6/uL (4.00-5.40); WHITE BLOOD COUNT 13.5 10^3/uL (4.0-10.0)
[2023-05-18 06:27] LABS: BLOOD UREA NITROGEN 11 MG/DL (9-23); CALCIUM LEVEL 8.1 MG/DL (8.3-10.6); CARBON DIOXIDE LEVEL 25 MMOL/L (20-31); CHLORIDE LEVEL 108 MMOL/L (98-107); CREATININE FOR GFR 0.79 MG/DL (0.55-1.30); GLOMERULAR FILTRATION RATE > 60.0 (>45); GLUCOSE, FASTING 102 MG/DL (74-106); POTASSIUM SERUM 3.5 MMOL/L (3.5-5.1); SODIUM LEVEL 143 MMOL/L (136-145)
[2023-05-18 07:11] VITALS: BP 142/73; TEMP 97.7; O2SAT 92
[2023-05-18] MEDS: SYMBICORT 160/4.5MCG INHALER 6GM INH SCH ×2 (07:24→20:06)
[2023-05-18] MEDS: ANALGESIC BALM CRM 3OZ TOP SCH ×2 (09:00→22:13)
[2023-05-18] MEDS: VENLAFAXINE **XR** 75MG CAPSULE PO SCH ×3 (09:00→11:49)
[2023-05-18 09:03] VITALS: BP 130/70; O2SAT 92
[2023-05-18] MEDS: PRAMIPEXOLE 1 MG TAB PO SCH ×2 (09:20→22:09)
[2023-05-18] MEDS: cefTRIAXone SOD 2 GM in D5W MINI-BAG PLUS 50 ML IV SCH (09:22)
[2023-05-18] MEDS: DULoxetine 30MG CAPSULE (CYMBALTA) PO SCH (11:05)
[2023-05-18] MEDS: BACLOFEN 10 MG TAB PO SCH ×3 (11:05→22:09)
[2023-05-18 14:00] VITALS: BP 126/63; TEMP 97.7; O2SAT 93
[2023-05-18] MEDS: ONDANSETRON 4MG 2ML VIAL IV PRN (15:48)
[2023-05-18 21:46] VITALS: BP 128/64; TEMP 97; O2SAT 90
[2023-05-19] MEDS: metroNIDAZOLE 500 MG in IV 1 EA IV SCH ×2 (02:37→10:01)
[2023-05-19] MEDS: KETOROLAC 30 MG/ML 1ML VIAL IV SCH (02:38)
[2023-05-19] MEDS: PANTOPRAZOLE 40MG VIAL IV SCH (04:45)
[2023-05-19] MEDS: LEVOTHYROXINE 112MCG TABLET (0.112MG) PO SCH (04:45)
[2023-05-19 06:18] LABS: BASO % 0.3 % (0.0-1.0); EOS # 0.4 10^3/uL (0.0-0.5); EOS % 3.3 % (0.0-3.0); HEMOGLOBIN 11.4 g/dl (12.0-15.5); LYMPH # 2.2 10^3/uL (1.5-5.0); LYMPH % 18.2 % (24.0-44.0); MEAN CORPUSCULAR HEMOGLOBIN 24.7 pg (27.0-33.0); MEAN CORPUSCULAR HGB CONC 31.7 g/dl (32.0-36.5); MEAN CORPUSCULAR VOLUME 77.9 fl (80.0-96.0); MONO % 8.4 % (2.0-8.0); NEUTROPHILS # 8.1 10^3/uL (1.5-8.5); NEUTROPHILS % 68.6 % (36.0-66.0); PLATELET COUNT, AUTOMATED 414 10^3/uL (150-450); RED BLOOD COUNT 4.62 10^6/uL (4.00-5.40); WHITE BLOOD COUNT 11.9 10^3/uL (4.0-10.0)
[2023-05-19 06:48] LABS: BLOOD UREA NITROGEN 18 MG/DL (9-23); CALCIUM LEVEL 8.3 MG/DL (8.3-10.6); CARBON DIOXIDE LEVEL 25 MMOL/L (20-31); CHLORIDE LEVEL 106 MMOL/L (98-107); CREATININE FOR GFR 0.89 MG/DL (0.55-1.30); GLOMERULAR FILTRATION RATE > 60.0 (>45); GLUCOSE, FASTING 99 MG/DL (74-106); POTASSIUM SERUM 3.7 MMOL/L (3.5-5.1); SODIUM LEVEL 141 MMOL/L (136-145)
[2023-05-19 06:52] VITALS: BP 127/67; TEMP 97.7; O2SAT 91
[2023-05-19] MEDS ORDERED: KETOROLAC 30 MG/ML 1ML VIAL IV PRN (07:15)
[2023-05-19] MEDS ORDERED: oxyCODONE 5MG TAB PO PRN (07:15)
[2023-05-19] MEDS: SYMBICORT 160/4.5MCG INHALER 6GM INH SCH (08:16)
[2023-05-19] MEDS: BACLOFEN 10 MG TAB PO SCH (09:00)
[2023-05-19] MEDS: ANALGESIC BALM CRM 3OZ TOP SCH (09:00)
[2023-05-19] MEDS: DULoxetine 30MG CAPSULE (CYMBALTA) PO SCH (09:00)
[2023-05-19] MEDS: PRAMIPEXOLE 1 MG TAB PO SCH (09:00)
[2023-05-19] MEDS: cefTRIAXone SOD 2 GM in D5W MINI-BAG PLUS 50 ML IV SCH (10:03)
[2023-05-19] MEDS ORDERED: OXYC-517 PO (11:36)
[2023-05-19] MEDS ORDERED: METR-265 PO (11:36)
[2023-05-19] MEDS ORDERED: CEFD300C42 PO (11:36)
== END 2023-05-19 15:50 | disposition home or self-care (01) | DRG 854 ==
LOC: M ED 08:37 → M ED INP 15:49 → M MS5PR 21:46
PROVIDERS: ADMIT Internal Medicine Nephrology; ATTEND Internal Medicine Nephrology
PROC: 0WUF4JZ Supplement Abdominal Wall with Synthetic Substitute, Percutaneous Endoscopic Approach (ICD-10-PCS; principal; 2023-05-15 15:13)
DX: A41.9 Sepsis, unspecified organism (principal); K43.0 Incisional hernia with obstruction, without gangrene; Z68.41 Body mass index [BMI] 40.0-44.9, adult; J98.11 Atelectasis; E66.01 Morbid (severe) obesity due to excess calories; L93.0 Discoid lupus erythematosus; F34.1 Dysthymic disorder; M15.0 Primary generalized (osteo)arthritis; E55.9 Vitamin D deficiency, unspecified; G25.81 Restless legs syndrome; E03.9 Hypothyroidism, unspecified; K21.9 Gastro-esophageal reflux disease without esophagitis; G47.33 Obstructive sleep apnea (adult) (pediatric); M54.50 Low back pain, unspecified; G89.29 Other chronic pain; Z79.890 Hormone replacement therapy; Z79.899 Other long term (current) drug therapy; Z88.0 Allergy status to penicillin; Z88.1 Allergy status to other antibiotic agents; Z88.5 Allergy status to narcotic agent; Z88.8 Allergy status to other drugs, medicaments and biological substances; Z98.84 Bariatric surgery status; Z96.652 Presence of left artificial knee joint

== ENCOUNTER → 2023-08-16 | Outpatient (REF) | payer MEDICARE, MEDICAID ==
[~2023-08-16] MED LIST changes: +ALBU8.5H PO; +CEFD1CAP9 PO; +CYAN1000VL IM; +DULO1CAP5 PO; +FERR32TA PO; +FLUT12AE6 INH; -FLUT50SP17; +FLUTISP; +MECL-86 PO; +METR-265 PO; +OXYC-517 PO; +PRAM1TAB7 PO
[2023-08-16 13:17] LABS: RSV AMPLIFICATION NEGATIVE (NEGATIVE)
== END ==
LOC: M SFHCPLAZ 10:09
PROVIDERS: ATTEND Nurse Practitioner Family
DX: R09.89 Other specified symptoms and signs involving the circulatory and respiratory systems (principal)

== ENCOUNTER → 2023-11-20 | Outpatient (CLI) | payer MEDICAID, MEDICARE ==
[~2023-11-20] MED LIST changes: +DOXY-323 PO; -DOXY-443 PO
== END ==
LOC: M PLALAB 11:37 → M PLAIMG 11:37
PROVIDERS: ATTEND Physician Assistant Medical
DX: J98.01 Acute bronchospasm (principal); J06.9 Acute upper respiratory infection, unspecified

== ENCOUNTER → 2024-01-15 | Outpatient (CLI) | payer MEDICARE ==
[2024-01-15 18:49] LABS: ALBUMIN 3.7 G/DL (3.2-5.2); BILIRUBIN,TOTAL 0.4 MG/DL (0.3-1.2); CALCIUM LEVEL 9.4 MG/DL (8.3-10.6); CHOLESTEROL RISK RATIO 2.85 (<5); CREATININE FOR GFR 1.2 MG/DL (0.55-1.30); GLOMERULAR FILTRATION RATE 47.8 (>45); HDL CHOLESTEROL 56.4 MG/DL (>40); LDL CHOLESTEROL 79.2 MG/DL (<100); NON-HDL-C 104.6 MG/DL; PERCENT SATURATION 7.4 % (13.2-45.0); POTASSIUM SERUM 4.1 MMOL/L (3.5-5.1); TOTAL PROTEIN 7.4 G/DL (5.7-8.2)
[2024-01-15 18:52] LABS: FREE T4 1.14 NG/DL (0.89-1.76); THYROID STIMULATING HORMONE 4.487 uIU/ML (0.55-4.78)
[2024-01-15 18:53] LABS: FOLATE 18.89 NG/ML (>5.4); TOTAL 25(OH) VITAMIN D 25.2 NG/ML (20.0-100.0)
[2024-01-15 19:06] LABS: HEMOGLOBIN A1c 5.8 % (4.0-6.0)
== END ==
LOC: M PLALAB 14:30
PROVIDERS: ATTEND Nurse Practitioner Family
DX: M47.814 Spondylosis without myelopathy or radiculopathy, thoracic region (principal); M48.04 Spinal stenosis, thoracic region; E78.2 Mixed hyperlipidemia; E03.9 Hypothyroidism, unspecified; E55.9 Vitamin D deficiency, unspecified; E53.8 Deficiency of other specified B group vitamins; D50.9 Iron deficiency anemia, unspecified; R73.01 Impaired fasting glucose

== ENCOUNTER → 2024-01-29 | Outpatient (CLI) | payer MEDICAID, MEDICARE ==
[2024-01-29 14:28] LABS: BASO # 0.1 10^3/uL (0.0-0.2); BASO % 0.9 % (0.0-1.0); EOS # 0.3 10^3/uL (0.0-0.5); EOS % 4.1 % (0.0-3.0); HEMATOCRIT 35.6 % (36.0-47.0); HEMOGLOBIN 11.1 g/dl (12.0-15.5); LYMPH # 2.7 10^3/uL (1.5-5.0); MEAN CORPUSCULAR HEMOGLOBIN 25.5 pg (27.0-33.0); MEAN CORPUSCULAR HGB CONC 31.2 g/dl (32.0-36.5); MEAN CORPUSCULAR VOLUME 81.7 fl (80.0-96.0); MONO # 0.8 10^3/uL (0.0-0.8); MONO % 9.8 % (2.0-8.0); NEUTROPHILS # 4.2 10^3/uL (1.5-8.5); NEUTROPHILS % 51.5 % (36.0-66.0); PLATELET COUNT, AUTOMATED 362 10^3/uL (150-450); RED BLOOD COUNT 4.36 10^6/uL (4.00-5.40); WHITE BLOOD COUNT 8.1 10^3/uL (4.0-10.0)
[2024-01-29 14:39] LABS: ERYTHROCYTE SEDIMENTATION RATE 60 mm/hr (0-30)
[2024-01-29 15:01] LABS: RHEUMATOID FACTOR QUANT < 3.5 IU/ML (<14)
[2024-01-30 15:02] LABS: ANA PATTERN Nuclear, Homogeneous (NEGATIVE); ANA PATTERN 2 Nuclear, Speckled; ANA SCREEN, IFA POSITIVE (NEGATIVE); ANA TITER 1:40 titer (<1:40); ANA TITER 2 1:40 titer (NEGATIVE)
[2024-01-30 22:38] LABS: CYCLIC CITRULLINATED PEPTIDE < 16 UNITS (<20)
== END ==
LOC: M PLALAB 11:07
PROVIDERS: ATTEND Nurse Practitioner Family
DX: R09.89 Other specified symptoms and signs involving the circulatory and respiratory systems (principal); R53.83 Other fatigue; M25.50 Pain in unspecified joint

== ENCOUNTER → 2024-04-15 | Outpatient (CLI) | payer MEDICAID, MEDICARE ==
[~2024-04-15] MED LIST changes: -DOXY-323 PO; +DOXY-441 PO
== END ==
LOC: M RAD 11:36
PROVIDERS: ATTEND Orthopaedic Surgery
DX: M79.604 Pain in right leg (principal); M79.89 Other specified soft tissue disorders

== ENCOUNTER → 2024-07-09 | Outpatient (CLI) | payer MEDICARE, MEDICAID ==
[~2024-07-09] MED LIST changes: -LEVO750T14 PO; +LEVO75TAB PO
== END ==
LOC: M EKG 10:06
PROVIDERS: ATTEND Orthopaedic Surgery
DX: Z01.818 Encounter for other preprocedural examination (principal)

== ENCOUNTER → 2024-07-22 | Outpatient (CLI) | payer MEDICARE, MEDICAID ==
[2024-07-22 11:46] LABS: BASO # 0.1 10^3/uL (0.0-0.2); BASO % 0.9 % (0.0-1.0); EOS # 0.3 10^3/uL (0.0-0.5); EOS % 3.2 % (0.0-3.0); HEMATOCRIT 36.3 % (36.0-47.0); HEMOGLOBIN 11.3 g/dl (12.0-15.5); LYMPH # 3.1 10^3/uL (1.5-5.0); LYMPH % 33.7 % (24.0-44.0); MEAN CORPUSCULAR HGB CONC 31.1 g/dl (32.0-36.5); MEAN CORPUSCULAR VOLUME 83.4 fl (80.0-96.0); MONO # 0.9 10^3/uL (0.0-0.8); MONO % 9.9 % (2.0-8.0); NEUTROPHILS # 4.7 10^3/uL (1.5-8.5); NEUTROPHILS % 51.5 % (36.0-66.0); PLATELET COUNT, AUTOMATED 388 10^3/uL (150-450); RED BLOOD COUNT 4.35 10^6/uL (4.00-5.40); WHITE BLOOD COUNT 9.1 10^3/uL (4.0-10.0)
[2024-07-22 12:03] LABS: HEMOGLOBIN A1c 5.9 % (4.0-6.0)
[2024-07-22 12:41] LABS: ALBUMIN 3.4 G/DL (3.2-5.2); ALKALINE PHOSPHATASE 121 U/L (35-104); ALT/SGPT 14 U/L (7.0-40); AST/SGOT 11 U/L (<34); BILIRUBIN,TOTAL 0.2 MG/DL (0.3-1.2); BLOOD UREA NITROGEN 22 MG/DL (9-23); CALCIUM LEVEL 9.3 MG/DL (8.3-10.6); CARBON DIOXIDE LEVEL 30 MMOL/L (20-31); CHLORIDE LEVEL 105 MMOL/L (98-107); CHOLESTEROL LEVEL 189 MG/DL (<200); CREATININE FOR GFR 0.95 MG/DL (0.55-1.30); GLOMERULAR FILTRATION RATE > 60.0 (>45); GLUCOSE, FASTING 77 MG/DL (74-106); HDL CHOLESTEROL 60.8 MG/DL (>40); IRON (FE) 26 UG/DL (50-170); LDL CHOLESTEROL 103.6 MG/DL (<100); NON-HDL-C 128.2 MG/DL; PERCENT SATURATION 6.5 % (13.2-45.0); POTASSIUM SERUM 4.9 MMOL/L (3.5-5.1); SODIUM LEVEL 142 MMOL/L (136-145); TOTAL IRON BINDING CAPACITY 403 UG/DL (250-425); TOTAL PROTEIN 7.5 G/DL (5.7-8.2); TRIGLYCERIDES LEVEL 123 MG/DL (<150)
[2024-07-22 12:42] LABS: FREE T4 1.34 NG/DL (0.89-1.76)
[2024-07-22 12:43] LABS: FOLATE 8.57 NG/ML (>5.4); THYROID STIMULATING HORMONE 0.706 uIU/ML (0.55-4.78); VITAMIN B12 LEVEL 384 PG/ML (211-911)
== END ==
LOC: M PLALAB 08:35
PROVIDERS: ATTEND Nurse Practitioner Family
DX: E78.2 Mixed hyperlipidemia (principal); E55.9 Vitamin D deficiency, unspecified; E03.9 Hypothyroidism, unspecified; E53.8 Deficiency of other specified B group vitamins; D50.9 Iron deficiency anemia, unspecified; R73.01 Impaired fasting glucose

== ENCOUNTER → 2025-01-23 | Outpatient (CLI) | payer MEDICAID, MEDICARE | LOC: M PLALAB 11:08 → M PLAIMG 11:08 | PROVIDERS: ATTEND Nurse Practitioner Family | DX: D50.9 Iron deficiency anemia, unspecified (principal) ==

== ENCOUNTER → 2025-02-25 | Outpatient (CLI) | payer MEDICARE ==
[~2025-02-25] MED LIST changes: -PROZ20CA11 PO; +PROZ20CA12 PO
[2025-02-25 18:44] LABS: BASO # 0.1 10^3/uL (0.0-0.2); BASO % 0.6 % (0.0-1.0); EOS # 0.2 10^3/uL (0.0-0.5); EOS % 2.4 % (0.0-3.0); LYMPH # 2.4 10^3/uL (1.5-5.0); LYMPH % 24.9 % (24.0-44.0); MONO # 0.9 10^3/uL (0.0-0.8); MONO % 9.4 % (2.0-8.0); NEUTROPHILS # 5.9 10^3/uL (1.5-8.5); NEUTROPHILS % 61.8 % (36.0-66.0); PLATELET COUNT, AUTOMATED 401 10^3/uL (150-450)
[2025-02-25 19:18] LABS: IRON (FE) 28.0 UG/DL (50-170)
[2025-02-25 19:19] LABS: ALT/SGPT 20.0 U/L (7.0-40); AST/SGOT 22.0 U/L (<34); CALCIUM LEVEL 9.0 MG/DL (8.3-10.6); CARBON DIOXIDE LEVEL 26.0 MMOL/L (20-31); CHLORIDE LEVEL 103.0 MMOL/L (98-107); CREATININE FOR GFR 0.96 MG/DL (0.55-1.30); FREE T4 1.28 NG/DL (0.89-1.76); GLOMERULAR FILTRATION RATE 64.9 (>45); PERCENT SATURATION 6.5 % (13.2-45.0); POTASSIUM SERUM 4.3 MMOL/L (3.5-5.1); SODIUM LEVEL 142.0 MMOL/L (136-145); VITAMIN B12 LEVEL 623.0 PG/ML (211-911)
== END ==
LOC: M PLALAB 16:08
PROVIDERS: ATTEND Nurse Practitioner Family
DX: D50.9 Iron deficiency anemia, unspecified (principal); E03.9 Hypothyroidism, unspecified

== ENCOUNTER → 2025-05-20 | Outpatient (CLI) | payer MEDICARE ==
[~2025-05-20] MED LIST changes: +METHACHOLINE KIT (6 VIAL.NEB PREMIX) INH ONE
== END ==
LOC: M CARPUL 13:33
PROVIDERS: ATTEND Physician Assistant
DX: R06.00 Dyspnea, unspecified (principal)
CPT/HCPCS: 94070; 95070; J7674

== ENCOUNTER → 2025-06-30 | Outpatient (CLI) | payer MEDICARE ==
[~2025-06-30] MED LIST changes: -METHACHOLINE KIT (6 VIAL.NEB PREMIX) INH ONE; -PROZ20CA12 PO; +PROZ20CA25 PO; +SULF-7 PO
[2025-06-30 18:17] LABS: BASO # 0.1 10^3/uL (0.0-0.2); BASO % 0.6 % (0.0-1.0); EOS # 0.3 10^3/uL (0.0-0.5); EOS % 2.2 % (0.0-3.0); LYMPH # 3.6 10^3/uL (1.5-5.0); LYMPH % 29.2 % (24.0-44.0); MONO # 1.1 10^3/uL (0.0-0.8); MONO % 8.6 % (2.0-8.0); NEUTROPHILS # 7.3 10^3/uL (1.5-8.5); NEUTROPHILS % 58.6 % (36.0-66.0); PLATELET COUNT, AUTOMATED 467 10^3/uL (150-450)
[2025-06-30 18:19] LABS: IRON (FE) 37.0 UG/DL (50-170); PERCENT SATURATION 8.4 % (13.2-45.0)
[2025-06-30 18:20] LABS: ALT/SGPT 18.0 U/L (7.0-40); AST/SGOT 10.0 U/L (<34); CALCIUM LEVEL 10.0 MG/DL (8.3-10.6); CARBON DIOXIDE LEVEL 27.0 MMOL/L (20-31); CHLORIDE LEVEL 104.0 MMOL/L (98-107); CHOLESTEROL LEVEL 208.0 MG/DL (<200); CHOLESTEROL RISK RATIO 3.63 (<5); CREATININE FOR GFR 1.19 MG/DL (0.55-1.30); GLOMERULAR FILTRATION RATE 49.8 (>45); LDL CHOLESTEROL 109.0 MG/DL (<100); NON-HDL-C 150.8 MG/DL; POTASSIUM SERUM 4.2 MMOL/L (3.5-5.1); SODIUM LEVEL 140.0 MMOL/L (136-145); TRIGLYCERIDES LEVEL 209.0 MG/DL (<150)
[2025-06-30 18:21] LABS: FREE T4 0.99 NG/DL (0.89-1.76); VITAMIN B12 LEVEL 604.0 PG/ML (211-911)
[2025-06-30 18:24] LABS: TOTAL 25(OH) VITAMIN D 22.5 NG/ML (20.0-100.0)
[2025-06-30 18:39] LABS: ESTIMATED AVERAGE GLUCOSE 126.0 MG/DL (60-110)
== END ==
LOC: M PLALAB 15:16
PROVIDERS: ATTEND Nurse Practitioner Family
DX: D50.9 Iron deficiency anemia, unspecified (principal); R73.01 Impaired fasting glucose; E55.9 Vitamin D deficiency, unspecified; E53.8 Deficiency of other specified B group vitamins; E78.2 Mixed hyperlipidemia